=== PATIENT | female | born 1975 | race Caucasian/White ===

== ENCOUNTER 2019-04-07 18:31 | Emergency (ER) | payer MEDICAID, SELFPAY ==
[2019-04-07 19:04] VITALS: BP 167/90; PULSE 88; RESP 18; TEMP 36.8; O2SAT 96; BMI 38.9
[2019-04-07 19:45] LABS: Influenza A by IFA Negative (Negative); Influenza B by IFA Negative (Negative)
--- NOTE | 2019-04-07 20:29 | W.ED.FEVER ---
HPI - Fever General: Chief Complaint: Fever Stated Complaint: flu like symptoms Time Seen by Provider: 04/07/19 20:07 Source: patient Mode of arrival: ambulatory Limitations: no limitations History of Present Illness: HPI Narrative: Patient comes in today with fever, body aches, and bronchial discomfort. Patient appears well. Patient appears in mild pain or distress. Patient reports that her child was diagnosed with influenza type B and she has been using Tamiflu prophylactically for the last week. Associated symptoms: Reports chills Review of Systems General: Reports: 10 or more systems reviewed and unremarkable except in HPI and below Const: Reports: chills ENMT: Reports: throat pain Resp: Reports: non-productive cough PFSH ED PFSH: Statuses (acute, chronic, etc) shown below reflect problem list status as previously entered and may not be historically accurate Social History Smoking and tobacco status: never smoked Physical Exam Const: COMMON NORMALS: no apparent distress and oriented x3 GENERAL APPEARANCE: cooperative HENMT: COMMON NORMALS: normocephalic, external ears normal, EAC's normal, TM's normal bilaterally and external nose normal HEAD & SCALP: normal to inspection and normocephalic FACE & SINUS: normal facial exam NOSE: external nose normal GENERAL EAR: hearing not grossly impaired EXTERNAL EAR: Yes external ears normal EXTERNAL AUDITORY CANAL: EAC's normal TYMPANIC MEMBRANE: TM's normal bilaterally MOUTH: oral and palatal mucosa normal THROAT: posterior oropharynx normal Eye: COMMON NORMALS: PERRL and EOMs intact bilaterally PUPIL: Yes PERRL Neck/C-Spine: COMMON NORMALS: full ROM and no lymphadenopathy Lymph: LYMPHATIC: no lymphedema noted Chest: COMMONS NORMALS: inspection of chest normal and palpation of chest normal Resp: COMMON NORMALS: normal respiratory effort AUSCULTATION: bronchial breath sounds Cardio: COMMON NORMALS: regular rate and regular rhythm RATE: regular rate RHYTHM: regular rhythm GI: COMMON NORMALS: normal to inspection, nondistended, normoactive bowel sounds and non-tender : COMMON NORMALS: Yes no CVA tenderness BLADDER/KIDNEY EXAM: Yes no CVA tenderness Back/Pelvis: COMMON NORMALS: no CVA tenderness and thoracic and lumbar spine normal to inspection Extremity: COMMON NORMALS: normal to inspection GENERAL: No edema Neuro: COMMON NORMALS: oriented x3, moves all extremities and no focal motor deficits Psych: COMMON NORMALS: mental status grossly normal and cooperative Skin: COMMON NORMALS: no rashes or lesions noted GENERAL SKIN EXAM: no rashes or lesions noted Course Vital Signs: Vital signs: Vital Signs Temperature 98.7 F 04/07/19 21:13 Pulse Rate 82 04/07/19 21:13 Respiratory Rate 16 04/07/19 21:13 Blood Pressure 137/82 04/07/19 21:13 Pulse Oximetry 98 04/07/19 21:13 MDM - Fever MDM Narrative: Medical decision making narrative: Patient comes in today with flulike symptoms. On exam her lungs are pretty well clear to auscultation except for some mild bronchial sounds. Skin was warm and dry color is pink. No acute distress was noted. Differential diagnosis include pneumonia, influenza, upper respiratory infection, viral syndrome. Flu test was negative. I discussed with patient that being her child was just tested positive with the flu that most likely this is flu as it is described as a flulike syndrome. Patient otherwise looks well. We will go ahead and retreat with Tamiflu except that treatment dose of 75 mg twice a day for 5 days. Patient was recommended to use Tylenol and ibuprofen for pain. Patient was given dexamethasone for her bronchial breath sounds. Patient reports understanding of care plan and need for follow-up. Lab Data: Labs: Lab Results 04/07/19 Range/Units 19:10 Influenza Type A A g Negative (Negative) POC Influenza B Ag Negative (Negative) Discharge Plan Discharge Patient Disposition: Home, Self-Care Clinical Impression: Influenza Condition: Stable Prescriptions: New Tamiflu 75 mg capsule 75 mg PO BID 5 Days Qty: 10 RF: 0 promethazine-DM 6.25-15 mg/5 mL syrup 5 ml PO Q6H PRN (Reason: cough and nausea) Qty: 120 RF: 0 Discharge Orders: Discharge Order (Routine); Ordered 04/07/19 Ordered By: Noble Boswell Referrals: Aracelis Martinez FNP [Primary Care Provider] - Discharge Diet: Usual diet Discharge Activity: Resume usual activity Patient Instructions: Influenza (ED) Activity Restrictions/Additional Instructions: Drink plenty of fluids Acetaminophen and ibuprofen for pain and fever Medications as directed Home and rest Follow-up with primary care in one week Return to ER for worsening shortness of breath Discharge Date/Time: 04/07/19 21:14 Coding Level of Care Code ED Communications Executive for Chg Fwd Exam Problem Focused
[2019-04-07] MEDS: dexamethasone 10 mg/mL INJ IM (20:35)
[2019-04-07] MEDS: ondansetron 4 MG Tablet PO (20:40)
[2019-04-07 20:54] VITALS: BP 139/82; PULSE 86; RESP 16; TEMP 37.1; O2SAT 99
[2019-04-07 21:13] VITALS: BP 137/82; PULSE 82; RESP 16; TEMP 37.1; O2SAT 98
== END 2019-04-07 21:14 | disposition home or self-care (01) ==
PROVIDERS: Emergency Provider Nurse Practitioner Family; Family Provider Nurse Practitioner; PCP Nurse Practitioner
DX: J11.1 Influenza due to unidentified influenza virus with other respiratory manifestations (principal)
CPT/HCPCS: 87804; 96372; 99281; 99283; J1100; Q0162

== ENCOUNTER 2019-04-13 10:10 | Emergency (ER) | payer MEDICAID, SELFPAY ==
[2019-04-13 10:16] VITALS: BP 190/104; PULSE 92; RESP 18; TEMP 36.8; O2SAT 100; BMI 38.9
--- NOTE | 2019-04-13 10:27 | XR_ITS ---
WS: [id number] PROCEDURE: XR chest 2V* [id number] CLINICAL INFORMATION: cp COMPARISON: 2018 FINDINGS: Cholecystectomy clips. Heart: Normal cardiac silhouette. Lungs: Lungs are clear. No consolidation or pleural fluid. Calcific granuloma right midlung. Bones: Normal visualized bony structures. XR/XR chest 2V* [id number] IMPRESSION: No acute chest findings.
[2019-04-13 10:45] LABS: Basophils % 0.4 %; Eosinophils # 0.2 10^3/uL (0.0-0.8); Eosinophils % 2.1 %; Hemoglobin 14.3 g/dL (11.5-15.3); Lymphocytes # 2.1 10^3/uL (0.8-4.8); Lymphocytes % 20.1 %; Mean Corpuscular HGB Conc 32.5 g/dL (30.0-36.0); Mean Corpuscular Hemoglobin 30.3 pg (28.0-34.0); Mean Corpuscular Volume 93.2 fL (81-99); Mean Platelet Volume 11.1 fL (7.4-10.4); Monocytes # 0.5 10^3/uL (0.2-0.9); Monocytes % 4.8 %; Neutrophils # 7.5 10^3/uL (1.8-7.7); Neutrophils % 72.2 %; Nucleated Red Blood Cells % 0 %; Platelet Count 284 10^3/cmm (130-400); Red Blood Count 4.72 10^6/uL (4.1-5.3); Red Cell Distribution Width 13.2 % (12.1-15.1); White Blood Count 10.4 10^3/uL (4.0-10.0)
[2019-04-13 11:07] LABS: Troponin(5th) Baseline 6 ng/mL (0-10)
[2019-04-13 11:08] LABS: Alanine Aminotransferase 14 U/L (0-33); Albumin Level 4.2 g/dL (3.5-5.2); Alkaline Phosphatase 87 IU/L (35-105); Aspartate Amino Transferase 16 U/L (0-32); Blood Urea Nitrogen 10 mg/dL (6-20); Carbon Dioxide 25 mmol/L (22-29); Chloride 100 mmol/L (98-107); Globulin 3.4 g/dL (1.3-4.6); Glomerular Filtration Rate 48.8 mL/min (90-130); Glucose 150 mg/dL (74-109); Sodium 138 mmol/L (136-145); Total Bilirubin 0.8 mg/dL (0.15-1.2); Total Protein 7.6 g/dL (6.6-8.7)
--- NOTE | 2019-04-13 12:22 | ECG_ITS ---
Measurements Intervals [place] Rate: 78 P: 34 HI: 191 QRS: -19 QRSD: 97 T: -6 QT: 362 QTc: 413 SINUS RHYTHM MODERATE VOLTAGE CRITERIA FOR LVH, CONSIDER NORMAL VARIANT [MEETS CRITERIA IN ON ONE OF: R(aVL), S(V1), R(V5), R(V5/V6)+S(V1)] No previous ECG available for comparison Electronically Signed On 04-13-2019 20:17:15 MERCERIZING RANGE CONTROLLER by Shayna Jenkins M.D. [email or web address]
[2019-04-13 13:07] LABS: Troponin 5 2HR 6.57 ng/mL (0-10); Troponin 5 2HR Delta 0.57 ABS# (0-10)
--- NOTE | 2019-04-13 15:33 | ED_ITS ---
Entered by Gogo Baker, acting as scribe for Gene Bone DO Apr 13, 2019 10:10 HPI - Chest Pain General: Chief Complaint: Chest Pain Stated Complaint: CP X 2DAYS Time Seen by Provider: 04/13/19 15:33 Source: patient Mode of arrival: ambulatory Limitations: no limitations History of Present Illness: HPI narrative: 43 yo female presents with chest pain. pt states this started yesterday, but has had pneumonia for the last month. pt states she is unable to lay on her Left side due to pain. pt denies any other symptoms. MD complaint: chest pain Onset (ago): hour(s) (yesterday) Timing of current episode: constant and still present Onset: during rest Pain location: left chest Pain radiation: left arm and left shoulder Severity: mild Quality: sharp Relieving factors: nothing Exacerbating factors: other (laying on her L side) Context: recent illness (pneumonia ) Associated symptoms: Reports no associated symptoms Treatment prior to arrival: none Review of Systems General: Reports: 10 or more systems reviewed and unremarkable except in HPI and below PFSH ED PFSH: Statuses (acute, chronic, etc) shown below reflect problem list status as previously entered and may not be historically accurate Medical History History of diabetes mellitus (Acute) Surgical History H/O laparoscopy (Acute) H/O: (Acute) History of tubal ligation (Acute) Social History Smoking and tobacco status: never smoked Physical Exam Const: COMMON NORMALS: no apparent distress, average body habitus, oriented x3, no limitations, healthy appearing, alert and well nourished HENMT: COMMON NORMALS: normocephalic, head/scalp atraumatic, hearing grossly normal bilaterally, external ears normal, EAC's normal, TM's normal bilaterally, external nose normal, nasal mucous membranes and turbinates normal, moist oral mucous membranes, oropharynx normal, dentition normal and gingiva normal HEAD & SCALP: normocephalic and atraumatic NOSE: external nose normal and nasal mucous membranes and turbinates normal EXTERNAL EAR: Yes external ears normal EXTERNAL AUDITORY CANAL: EAC's normal TYMPANIC MEMBRANE: TM's normal bilaterally Eye: COMMON NORMALS: PERRL, EOMs intact bilaterally, conjunctivae normal, no scleral icterus, no papilledema, normal visual ayala by confrontation and fundi normal bilaterally CONJUNCTIVA: Yes conjunctivae normal PUPIL: Yes PERRL DIRECT OPHTHALMOSCOPY: Yes no papilledema and Yes fundi normal bilaterally Neck/C-Spine: COMMON NORMALS: full ROM, no lymphadenopathy, supple, no meningeal signs, no JVD, thyroid normal and no carotid bruits THYROID: thyroid normal Resp: COMMON NORMALS: normal respiratory effort, no retractions, no use of accessory muscles, clear to auscultation bilaterally and percussion normal AUSCULTATION: clear to auscultation bilaterally PERCUSSION: percussion normal Cardio: COMMON NORMALS: no JVD, regular rate, regular rhythm, S1 normal heart sound, S2 normal heart sound, no gallops, no clicks, no murmurs, no rub and peripheral pulses 2+ throughout RATE: regular rate RHYTHM: regular rhythm HEART SOUNDS: S1 normal and S2 normal PERIPHERAL PULSES: pulses 2+ throughout GI: COMMON NORMALS: normal to inspection, nondistended, normoactive bowel sounds, soft to palpation, non-tender, no hepatosplenomegaly, no masses and no bruits PALPATION: Yes soft and Yes no hepatosplenomegaly : COMMON NORMALS: Yes no CVA tenderness and Yes external appearance normal BLADDER/KIDNEY EXAM: Yes no CVA tenderness Back/Pelvis: COMMON NORMALS: no CVA tenderness, thoracic and lumbar spine normal to inspection, no thoracic nor lumbar tenderness, thoraco-lumbar ROM normal and straight leg raise negative bilaterally Extremity: COMMON NORMALS: normal to inspection, full ROM, normal capillary refill, no joint enlargement, no clubbing, cyanosis or edema, no calf tenderness and no pedal edema Neuro: COMMON NORMALS: oriented x3 SENSORIUM/ORIENTATION: Yes alert MENINGEAL SIGNS: Yes no meningeal signs Skin: COMMON NORMALS: no rashes or lesions noted, no wounds, skin turgor normal, no jaundice, no petechiae and no mottling GENERAL SKIN EXAM: no rashes or lesions noted and turgor normal Course Vital Signs: Vital signs: Vital Signs Temperature 98.2 F 04/13/19 10:16 Pulse Rate 92 02/04/20 10:16 Respiratory Rate 18 04/13/19 10:16 Blood Pressure 190/104 04/13/19 10:16 Pulse Oximetry 100 04/13/19 10:16 MDM - Chest Pain Lab Data: Labs: Lab Results 04/13/19 04/13/19 04/13/19 Range/Units 10:37 10:37 10:37 WBC 10.4 H (4.0-10.0) 10^3/ uL RBC 4.72 (4.1-5.3) 10^6/u L Hgb 14.3 (11.5-15.3) g/dL Hct 44.0 (37.0-47.0) % MCV 93.2 (81-99) fL MCH 30.3 (28.0-34.0) pg MCHC 32.5 (30.0-36.0) g/dL RDW 13.2 (12.1-15.1) % Plt Count 284 (130-400) 10^3/c mm MPV 11.1 H (7.4-10.4) fL Neut % (Auto) 72.2 % Lymph % (Auto) 20.1 % [place] % (Auto) 4.8 % Eos % (Auto) 2.1 % Baso % (Auto) 0.4 % Neut # (Auto) 7.5 (1.8-7.7) 10^3/u L Lymph # (Auto) 2.1 (0.8-4.8) 10^3/u L [place] # (Auto) 0.5 (0.2-0.9) 10^3/u L Eos # (Auto) 0.2 (0.0-0.8) 10^3/u L Baso # (Auto) 0.0 (0.0-0.1) 10^3/u L Nucleated RBC % (a uto) 0 % Nucleated RBCs # 0.0 /100WBC Sodium 138 (136-145) mmol/L Potassium 4.0 (3.5-5.1) mmol/L Chloride 100 (98-107) mmol/L Carbon Dioxide 25 (22-29) mmol/L Anion Gap 17.0 (5-19) BUN 10 (6-20) mg/dL Creatinine 1.2 H (0.5-0.9) mg/dL GFR Calculation 48.8 L (90-130) mL/min Glucose 150 H (74-109) mg/dL Calcium 10.0 (8.5-10.5) mg/dL Total Bilirubin 0.8 (0.15-1.2) mg/dL AST 16 (0-32) U/L ALT 14 (0-33) U/L Alkaline Phosphata se 87 (35-105) IU/L Troponin T Baselin e 6 (0-10) ng/mL Troponin T 120 Min [place] (0-10) ng/mL Delta Troponin T (0-10) ABS# Total Protein 7.6 (6.6-8.7) g/dL Albumin 4.2 (3.5-5.2) g/dL Globulin 3.4 (1.3-4.6) g/dL 04/13/19 Range/Units 12:46 WBC (4.0-10.0) 10^3/ uL RBC (4.1-5.3) 10^6/u L Hgb (11.5-15.3) g/dL Hct (37.0-47.0) % MCV (81-99) fL MCH (28.0-34.0) pg MCHC (30.0-36.0) g/dL RDW (12.1-15.1) % Plt Count (130-400) 10^3/c mm MPV (7.4-10.4) fL Neut % (Auto) % Lymph % (Auto) % [place] % (Auto) % Eos % (Auto) % Baso % (Auto) % Neut # (Auto) (1.8-7.7) 10^3/u L Lymph # (Auto) (0.8-4.8) 10^3/u L [place] # (Auto) (0.2-0.9) 10^3/u L Eos # (Auto) (0.0-0.8) 10^3/u L Baso # (Auto) (0.0-0.1) 10^3/u L Nucleated RBC % (a uto) % Nucleated RBCs # /100WBC Sodium (136-145) mmol/L Potassium (3.5-5.1) mmol/L Chloride (98-107) mmol/L Carbon Dioxide (22-29) mmol/L Anion Gap (5-19) BUN (6-20) mg/dL Creatinine (0.5-0.9) mg/dL GFR Calculation (90-130) mL/min Glucose (74-109) mg/dL Calcium (8.5-10.5) mg/dL Total Bilirubin (0.15-1.2) mg/dL AST (0-32) U/L ALT (0-33) U/L Alkaline Phosphata se (35-105) IU/L Troponin T Baselin e (0-10) ng/mL Troponin T 120 Min [place] 6.57 (0-10) ng/mL Delta Troponin T 0.57 (0-10) ABS# Total Protein (6.6-8.7) g/dL Albumin (3.5-5.2) g/dL Globulin (1.3-4.6) g/dL Discharge Plan Discharge Clinical Impression: Stable angina Chest pain Qualifiers: Chest pain type: precordial pain Qualified Code(s): R07.2 - Precordial pain Condition: Stable Prescriptions: New clonidine HCl [Catapres] 0.1 mg tablet 0.1 mg PO DAILY PRN (Reason: hypertensive emergency) Qty: 20 RF: 0 lisinopril 10 mg tablet 10 mg PO DAILY Qty: 20 RF: 0 No Action promethazine-DM 6.25-15 mg/5 mL syrup 5 ml PO Q6H PRN (Reason: cough and nausea) Qty: 120 RF: 0 Discharge Orders: Discharge Order (Routine); Ordered 04/13/19 Ordered By: Gene Bone Referrals: Aracelis Martinze FNP [Primary Care Provider] - Coding Level of Care Code ED Executive Secretary for Chg Fwd Exam Problem Focused The documentation recorded by the Samuel zacarias Bridget Annette, accurately reflects the service I personally performed and the decisions made by Lizandro padilla Donald P, Apr 13, 2019 10:10
[2019-04-13 15:52] VITALS: BP 171/122; PULSE 83; O2SAT 93
== END 2019-04-13 15:52 | disposition home or self-care (01) ==
PROVIDERS: Emergency Provider Family Medicine; Family Provider Nurse Practitioner; PCP Nurse Practitioner
DX: I20.8 Other forms of angina pectoris (principal)
CPT/HCPCS: 36415; 71046; 80053; 84484; 85025; 93005; 99282; 99284

== ENCOUNTER 2019-05-11 18:05 | Emergency (ER) | payer MEDICAID, SELFPAY ==
[2019-05-11 18:08] VITALS: BP 164/94; PULSE 113; RESP 17; TEMP 37.7; O2SAT 93; BMI 41.6
[2019-05-11 20:01] LABS: Influenza A by IFA Positive (Negative); Influenza B by IFA Negative (Negative)
--- NOTE | 2019-05-11 20:33 | ED_ITS ---
Entered by Kenzie Lang, acting as scribe for Boaz Funes MD May 11, 2019 18:05 HPI - Fever General: Chief Complaint: Fever Stated Complaint: fever Time Seen by Provider: 05/11/19 20:32 Source: patient Mode of arrival: ambulatory History of Present Illness: HPI Narrative: 43 y/o female presents to the ED with complaint of fever and body aches. Pt states her daughter was recently dx with Flu A. Pt has had sore throat, cough and weakness. MD elicited complaint: fever Onset (ago): day(s) Context: sick contacts Relieving factors: nothing Associated symptoms: Reports chills and sore throat; Deny abdominal pain, chest pain, diarrhea, dysuria, headache(s), nausea or vomiting Review of Systems Const: Reports: fever, chills, body aches and fatigue; Denies: change in appetite Eyes: Denies: blurry vision or eye discomfort ENMT: Reports: throat pain; Denies: dental pain Card: Denies: chest pain Resp: Reports: non-productive cough; Denies: shortness of breath GI: Denies: abdominal pain, nausea, vomiting or diarrhea : Denies: painful urination Musc: Denies: neck pain or back pain Skin/Breast: Denies: rash Neuro: Denies: headache Psych: Denies: depression Lazaro/Lymph: Denies: easy bruising All/Imm: Denies: hives PFSH ED PFSH: Family History (Updated 05/06/19 @ 15:38 by Ioana Mancuso MD) Mother CAD (coronary artery disease) Heart attack Grandmother CAD (coronary artery disease) Maternal grandmother Other Cancer Dementia Diabetes Hypertension Stroke Social History Smoking and tobacco status: current every day smoker Alcohol intake: never Physical Exam Const: COMMON NORMALS: no apparent distress and oriented x3 NUTRITIONAL APPEARANCE: obese HENMT: COMMON NORMALS: normocephalic and head/scalp atraumatic HEAD & SCALP: normocephalic and atraumatic Eye: COMMON NORMALS: PERRL and EOMs intact bilaterally PUPIL: Yes PERRL Neck/C-Spine: COMMON NORMALS: full ROM and supple Chest: COMMONS NORMALS: inspection of chest normal and palpation of chest normal Resp: COMMON NORMALS: normal respiratory effort, no retractions, no use of accessory muscles and clear to auscultation bilaterally AUSCULTATION: clear to auscultation bilaterally Cardio: COMMON NORMALS: regular rate, regular rhythm and no murmurs RATE: regular rate RHYTHM: regular rhythm GI: COMMON NORMALS: normal to inspection, nondistended, normoactive bowel sounds, soft to palpation, non-tender and no masses PALPATION: Yes soft Extremity: COMMON NORMALS: normal to inspection and full ROM Neuro: COMMON NORMALS: oriented x3, moves all extremities and no focal motor deficits Psych: COMMON NORMALS: mental status grossly normal, thought process normal and cooperative ATTITUDE: Yes calm THOUGHT PROCESS: normal thought process Skin: COMMON NORMALS: no rashes or lesions noted and no wounds GENERAL SKIN EXAM: no rashes or lesions noted Course Vital Signs: Vital signs: Vital Signs Temperature 99.9 F H 05/11/19 18:08 Pulse Rate 113 H 05/11/19 18:08 Respiratory Rate 17 05/11/19 18:08 Blood Pressure 164/94 05/11/19 18:08 Pulse Oximetry 93 05/11/19 18:08 MDM - Fever MDM Narrative: Medical decision making narrative: Patient presents with cough fever and body aches. Patient did test positive for flu likely causing symptoms. Exam here is benign and patient has no signs of pneumonia. We will start her on Tamiflu and she is stable for discharge. Lab Data: Labs: Lab Results 05/11/19 Range/Units 19:20 Influenza Type A A g Positive H (Negative) POC Influenza B Ag Negative (Negative) Discharge Plan Discharge Patient Disposition: Home, Self-Care Clinical Impression: Influenza Condition: Stable Prescriptions: New Tamiflu 75 mg capsule 75 mg PO BID 5 Days Qty: 10 RF: 0 No Action clonidine HCl 0.1 mg tablet 0.1 mg PO DAILY PRNRF: 0 albuterol sulfate 90 mcg/actuation HFA aerosol inhaler 2 puff INHALATION Q6H PRNRF: 0 omeprazole 20 mg capsule,delayed release(DR/EC) 20 mg PO DAILY Qty: 30 RF: 2 amoxicillin-pot clavulanate [Augmentin] 875-125 mg tablet 1 tab PO BID 7 Days Qty: 14 RF: 0 amlodipine 2.5 mg tablet 2.5 mg PO DAILY Qty: 30 RF: 2 Discharge Orders: Discharge Order (Routine); Ordered 05/11/19 Ordered By: Boaz Funes Referrals: Aracelis Martinez FNP [Primary Care Provider] - Discharge Diet: Advance as tolerated Discharge Activity: Resume usual activity Patient Instructions: Influenza (ED) Coding Level of Care Code ED Belt Brander for Chg Fwd Exam Comprehensive The documentation recorded by the Rickey zacarias Ashley, accurately reflects the service I personally performed and the decisions made by Marin padilla Korby, MD May 11, 2019 18:05
[2019-05-11 20:55] VITALS: O2SAT 98
[2019-05-11 20:56] VITALS: BP 134/69; PULSE 86; RESP 18; O2SAT 99
== END 2019-05-11 20:56 | disposition home or self-care (01) ==
PROVIDERS: Emergency Provider Emergency Medicine; Family Provider Nurse Practitioner; PCP Nurse Practitioner
DX: J11.1 Influenza due to unidentified influenza virus with other respiratory manifestations (principal); F17.200 Nicotine dependence, unspecified, uncomplicated; E66.9 Obesity, unspecified; Z68.41 Body mass index [BMI] 40.0-44.9, adult
CPT/HCPCS: 87804; 99281; 99283

== ENCOUNTER 2019-05-19 14:06 | Emergency (ER) | payer MEDICAID, SELFPAY ==
[2019-05-19 14:24] VITALS: BP 168/91; PULSE 85; RESP 16; TEMP 37.1; O2SAT 95; BMI 41.1
--- NOTE | 2019-05-19 14:31 | PC.NURSE ---
Mask applied to pt during triage.
--- NOTE | 2019-05-19 14:33 | XR_ITS ---
WS: [id number] Portable AP upright chest, 05/19/2019 Clinical Data: cough Comparison: PA and lateral chest, 04/13/2019. Findings: No nodules, masses or effusions are seen. The heart is normal. The pulmonary vascularity is not increased. No pneumonia or pneumothorax is seen. The patient's clothing obscures minimal detail over the central portion of the chest. XR/XR chest 1V portable [id number] Impression: Negative chest.
--- NOTE | 2019-05-19 14:36 | W.ED.GENADLT ---
HPI - General Adult General: Chief complaint: Shortness of Breath/Dyspnea Stated complaint: cough Time Seen by Provider: 05/19/19 14:31 History of Present Illness: HPI narrative: Patient had flu couple weeks ago was placed on Tamiflu. Patient's flulike symptoms are improved on the Tamiflu but she has continued cough. patient gets short of breath with exertion. Says she also has a productive cough history of treated high blood pressure MD complaint: Cough Onset (ago): week(s) Severity: moderate Associated symptoms: Reports cough and dyspnea; Deny chest pain, fevers/chills, headache(s), nausea, rash or vomiting Review of Systems Const: Denies: fever, chills or body aches Eyes: Denies: change in vision or blurry vision ENMT: Denies: throat pain or nasal congestion Card: Denies: chest pain or shortness of breath on exertion Resp: Reports: shortness of breath and productive cough; Denies: non-productive cough GI: Denies: abdominal pain, nausea or vomiting Musc: Denies: extremity pain Skin/Breast: Denies: rash Neuro: Denies: headache Psych: Denies: anxiety or depression Lazaro/Lymph: Denies: easy bruising PFSH ED PFSH: Family History (Updated 05/06/19 @ 15:38 by Ioana Mancuso MD) Mother CAD (coronary artery disease) Heart attack Grandmother CAD (coronary artery disease) Maternal grandmother Other Cancer Dementia Diabetes Hypertension Stroke Social History Smoking and tobacco status: never smoked Alcohol intake: never Female Reproductive History: Date of last menstrual period: 05/11/19 Physical Exam Const: COMMON NORMALS: no apparent distress, average body habitus and oriented x3 HENMT: COMMON NORMALS: normocephalic HEAD & SCALP: normal to inspection and normocephalic FACE & SINUS: normal facial exam Eye: COMMON NORMALS: conjunctivae normal GENERAL EYE: normal appearance of both eyes CONJUNCTIVA: Yes conjunctivae normal Neck/C-Spine: COMMON NORMALS: no JVD Chest: COMMONS NORMALS: inspection of chest normal Resp: COMMON NORMALS: normal respiratory effort and clear to auscultation bilaterally AUSCULTATION: clear to auscultation bilaterally Cardio: COMMON NORMALS: no JVD, regular rate and regular rhythm RATE: regular rate RHYTHM: regular rhythm GI: COMMON NORMALS: normal to inspection, nondistended, normoactive bowel sounds Extremity: COMMON NORMALS: normal to inspection and full ROM Neuro: COMMON NORMALS: oriented x3 Course Vital Signs: Vital signs: Vital Signs Temperature 98.7 F 05/19/19 14:24 Pulse Rate 85 05/19/19 14:24 Respiratory Rate 16 05/19/19 14:24 Blood Pressure 168/91 05/19/19 14:24 Pulse Oximetry 95 05/19/19 14:24 Discharge Plan Discharge Prescriptions: No Action clonidine HCl 0.1 mg tablet 0.1 mg PO DAILY PRNRF: 0 albuterol sulfate 90 mcg/actuation HFA aerosol inhaler 2 puff INHALATION Q6H PRNRF: 0 omeprazole 20 mg capsule,delayed release(DR/EC) 20 mg PO DAILY Qty: 30 RF: 2 amlodipine 2.5 mg tablet 2.5 mg PO DAILY Qty: 30 RF: 2 Coding Level of Care Code ED Top Flavor Attendant for Chg Acosta
[2019-05-19 15:16] LABS: Basophils % 0.3 %; Eosinophils # 0.2 10^3/uL (0.0-0.8); Hematocrit 39.3 % (37.0-47.0); Hemoglobin 12.8 g/dL (11.5-15.3); Lymphocytes # 1.8 10^3/uL (0.8-4.8); Lymphocytes % 23.8 %; Mean Corpuscular HGB Conc 32.6 g/dL (30.0-36.0); Mean Corpuscular Hemoglobin 29.1 pg (28.0-34.0); Mean Corpuscular Volume 89.3 fL (81-99); Monocytes # 0.6 10^3/uL (0.2-0.9); Monocytes % 7.4 %; Neutrophils # 4.9 10^3/uL (1.8-7.7); Neutrophils % 65.4 %; Nucleated Red Blood Cells % 0 %; Platelet Count 275 10^3/cmm (130-400); White Blood Count 7.5 10^3/uL (4.0-10.0)
[2019-05-19 15:26] VITALS: BP 139/96; PULSE 74; RESP 18; O2SAT 96
== END 2019-05-19 15:26 | disposition home or self-care (01) ==
PROVIDERS: Emergency Provider Nurse Practitioner Family; Family Provider Nurse Practitioner; PCP Nurse Practitioner
DX: R06.02 Shortness of breath (principal); R05 Cough
CPT/HCPCS: 12345; 36415; 71045; 85025; 99281; 99283

== ENCOUNTER 2019-09-09 17:08 | Emergency (ER) | payer MEDICAID, SELFPAY ==
[2019-09-09 17:43] VITALS: BP 130/87; PULSE 98; RESP 16; TEMP 37.3; O2SAT 97; BMI 38.9
--- NOTE | 2019-09-09 17:49 | XR_ITS ---
WS: [id number] LEFT FOOT: 3 VIEW(S) TECHNIQUE: AP, oblique and lateral. HISTORY: pain COMPARISON: 10/15/2018 No acute fracture or dislocation. Normal tarsal/metatarsal alignment. Mild degenerative changes at the first metatarsophalangeal joint with small erosions and subchondral cystic changes. Small calcaneal spur. Small osteophytes in the midfoot and there is a small osteophyte from the anter ior talar dome seen on the lateral projection. XR/XR foot LT min 3V* [id number] IMPRESSION: 1. Mild hallux valgus. 2. Mild degenerative changes in the midfoot.
--- NOTE | 2019-09-09 17:49 | XR_ITS ---
WS: [id number] RIGHT SHOULDER: 2 VIEW(S) TECHNIQUE: Internal and external rotation. HISTORY: injury COMPARISON: None available. No fracture or dislocation or soft tissue abnormality. Mild AC joint narrowing and hypertrophic bone formation distal clavicle. Visualized RIGHT lung is clear with the exception of a benign granuloma. XR/XR shoulder RT min 2V* [id number] IMPRESSION: Mild AC joint arthritis.
--- NOTE | 2019-09-09 18:10 | ECG_ITS ---
[facility] Test Date: 2019-09-09 Pat Name: Aisha Cooper Department: Room: Gender: Female [employer]: : 1975 Requested By: Arianna Patel Order Number: [id number] Gonzalez MD: Pawel Almanzar M.D. Measurements Intervals [place] Rate: 95 P: 30 [place]: 191 QRS: -25 QRSD: 92 T: -4 QT: 345 QTc: 435 Interpretive Statements SINUS RHYTHM MODERATE VOLTAGE CRITERIA FOR LVH, CONSIDER NORMAL VARIANT [MEETS CRITERIA IN ONE OF: R(aVL), S(V1), R(V5), R(V5/V6)+S(V1)] POSSIBLE ANTERIOR MYOCARDIAL INFARCTION [30 ms Q WAVE IN V3/V4, OR R < 0.2 mV IN V4], PROBABLY OLD Compared to ECG 04/13/2019 12:37:29 Myocardial infarct finding now present Electronically Signed On 09-10-2019 7:25:33 CDT by Pawel Almanzar M.D. [id number] f
--- NOTE | 2019-09-09 18:10 | XR_ITS ---
WS: [id number] PORTABLE CHEST HISTORY: Chest pain COMPARISON: 05/19/2019 Benign granuloma RIGHT lung. No pneumonia. Normal vasculature. No pleural effusion or pneumothorax. Cardiac size: Normal. Mediastinum/Aorta: Normal mediastinum. No osseous abnormality seen. XR/XR chest 1V portable [id number] IMPRESSION: Unremarkable portable chest.
[2019-09-09 18:49] LABS: Basophils # 0.1 10^3/uL (0.0-0.1); Basophils % 0.5 %; Eosinophils # 0.2 10^3/uL (0.0-0.8); Eosinophils % 1.7 %; Hematocrit 42.4 % (37.0-47.0); Hemoglobin 13.8 g/dL (11.5-15.3); Lymphocytes # 1.9 10^3/uL (0.8-4.8); Lymphocytes % 15.6 %; Mean Corpuscular HGB Conc 32.5 g/dL (30.0-36.0); Mean Corpuscular Hemoglobin 30.6 pg (28.0-34.0); Mean Platelet Volume 11.2 fL (7.4-10.4); Monocytes # 0.8 10^3/uL (0.2-0.9); Monocytes % 6.8 %; Neutrophils # 9.1 10^3/uL (1.8-7.7); Neutrophils % 74.9 %; Nucleated Red Blood Cells % 0 %; Platelet Count 289 10^3/cmm (130-400); Red Blood Count 4.51 10^6/uL (4.1-5.3); Red Cell Distribution Width 13.3 % (12.1-15.1); White Blood Count 12.1 10^3/uL (4.0-10.0)
[2019-09-09 19:07] LABS: Alanine Aminotransferase 20 U/L (0-33); Albumin Level 4.6 g/dL (3.5-5.2); Alkaline Phosphatase 89 IU/L (35-105); Anion Gap 16.1 (5-19); Aspartate Amino Transferase 22 U/L (0-32); Blood Urea Nitrogen 11 mg/dL (6-20); Calcium 9.5 mg/dL (8.5-10.5); Carbon Dioxide 25 mmol/L (22-29); Chloride 102 mmol/L (98-107); Globulin 2.8 g/dL (1.3-4.6); Glomerular Filtration Rate 60.2 mL/min (90-130); Glucose 96 mg/dL (65-115); Lipase 27 U/L (13-60); Osmolality Calculated 284 mOsm/kg (285-295); Potassium 4.1 mmol/L (3.5-5.1); Sodium 139 mmol/L (136-145); Total Bilirubin 0.5 mg/dL (0.15-1.2); Total Protein 7.4 g/dL (6.6-8.7)
[2019-09-09 19:08] LABS: Troponin T (5th) Once 6 ng/L (0-10)
--- NOTE | 2019-09-09 22:43 | W.ED.CHESTPA ---
HPI - Chest Pain General: Chief Complaint: Chest Pain Stated Complaint: right shoulder pain/left foot pain Time Seen by Provider: 09/09/19 22:30 Source: patient Mode of arrival: ambulatory Limitations: no limitations History of Present Illness: HPI narrative: 43-year-old female states she is been having right shoulder pain over the last 2 to 3 days. States that it hurts to touch and hurts when she moves her arm. States it started to radiate to her right side of her chest as well. Chest pain is also worse with movement of her arm. She states she also stepped on a toy last night and rolled her left foot and has left foot pain. She is able to ambulate but states that it is painful. She denies any fevers. She denies any cough or shortness of breath. Associated symptoms: Deny abdominal pain, dyspnea, fever(s), nausea or vomiting Review of Systems Const: Denies: fever(s), chills, body aches or change in appetite Eyes: Denies: blurry vision or eye discomfort ENMT: Denies: throat pain or dental pain Card: Denies: chest pain Resp: Denies: dyspnea GI: Denies: abdominal pain, nausea, vomiting or diarrhea : Denies: dysuria Musc: Reports: joint pain; Denies: neck pain or back pain Skin/Breast: Denies: rash Neuro: Denies: headache(s) Psych: Denies: depression Lazaro/Lymph: Denies: easy bruising All/Imm: Denies: urticaria PFSH ED PFSH: Medical History (Updated 09/09/19 @ 22:41 by Boaz Funes MD) GERD (gastroesophageal reflux disease) Surgical History H/O: History of cholecystectomy History of tubal ligation Right knee meniscal tear Family History (Updated 05/06/19 @ 15:38 by Ioana Mancuso MD) Mother CAD (coronary artery disease) Heart attack Grandmother CAD (coronary artery disease) Maternal grandmother Other Cancer Dementia Diabetes Hypertension Stroke Social History Smoking and tobacco status: never smoked Alcohol intake: never Female Reproductive History: Date of last menstrual period: 08/24/19 Physical Exam Const: COMMON NORMALS: no acute distress, patient oriented x3 and healthy appearing HENMT: COMMON NORMALS: normocephalic and atraumatic HEAD & SCALP: normocephalic and atraumatic Eye: COMMON NORMALS: Equal, round and reactive pupils present and EOMs intact bilaterally PUPIL: Yes Equal, round and reactive pupils present Neck/C-Spine: COMMON NORMALS: full ROM and supple Chest: COMMONS NORMALS: normal inspection of the chest and normal palpation of entire chest wall Resp: COMMON NORMALS: normal respiratory effort, No retractions, No use of accessory muscles and clear to auscultation bilaterally AUSCULTATION: clear to auscultation bilaterally Cardio: COMMON NORMALS: regular rate, regular rhythm and No murmurs present (Cardio) RATE: regular rate RHYTHM: regular rhythm GI: COMMON NORMALS: Normal to inspection, nondistended, normoactive bowel sounds present, Soft to palpation, non-tender and no masses PALPATION: Yes Soft to palpation Extremity: COMMON NORMALS: normal to inspection NARRATIVE EXTREMITY EXAM: Tenderness over right chest and right shoulder. Moving her arm reproduces her pain. Patient has full range of motion although it is painful at her shoulder joint. Patient has tenderness over left lateral foot with slight swelling. No obvious deformities. Patient is able to bear weight. Neuro: COMMON NORMALS: patient oriented x3, moves all extremities and no focal motor deficits Psych: COMMON NORMALS: mental status grossly normal, Normal thought process present and cooperative THOUGHT PROCESS: Normal thought process present Skin: COMMON NORMALS: no rashes or lesions noted and no wounds GENERAL SKIN EXAM: no rashes or lesions noted Course Vital Signs: Vital signs: Vital Signs Temperature 99.1 F 09/09/19 17:43 Pulse Rate 98 09/09/19 17:43 Respiratory Rate 16 09/09/19 17:43 Blood Pressure 130/87 09/09/19 17:43 Pulse Oximetry 97 09/09/19 17:43 MDM - Chest Pain MDM Narrative: Medical decision making narrative: Patient presents here with left foot strain from stepping on an object and rolling her foot. She has no fracture and is able ambulate. We will place her in an Abdullahi wrap. Patient also has shoulder pain is likely muscular. We will place her in a sling and place her on Naprosyn and Robaxin. She is to follow-up with primary care doctor in 3 to 4 days return if worsening. Her troponin here is negative she has no signs of cardiac cause for her pain. Lab Data: Labs: Lab Results 09/09/19 09/09/19 09/09/19 Range/Units 18:32 18:32 18:32 WBC 12.1 H (4.0-10.0) 10^3/ uL RBC 4.51 (4.1-5.3) 10^6/u L Hgb 13.8 (11.5-15.3) g/dL Hct 42.4 (37.0-47.0) % MCV 94.0 (81-99) fL MCH 30.6 (28.0-34.0) pg MCHC 32.5 (30.0-36.0) g/dL RDW 13.3 (12.1-15.1) % Plt Count 289 (130-400) 10^3/c mm MPV 11.2 H (7.4-10.4) fL Neut % (Auto) 74.9 % Lymph % (Auto) 15.6 % [place] % (Auto) 6.8 % Eos % (Auto) 1.7 % Baso % (Auto) 0.5 % Neut # (Auto) 9.1 H (1.8-7.7) 10^3/u L Lymph # (Auto) 1.9 (0.8-4.8) 10^3/u L [place] # (Auto) 0.8 (0.2-0.9) 10^3/u L Eos # (Auto) 0.2 (0.0-0.8) 10^3/u L Baso # (Auto) 0.1 (0.0-0.1) 10^3/u L Nucleated RBC % (a uto) 0 % Nucleated RBCs # 0.0 /100WBC Sodium 139 (136-145) mmol/L Potassium 4.1 (3.5-5.1) mmol/L Chloride 102 (98-107) mmol/L Carbon Dioxide 25 (22-29) mmol/L Anion Gap 16.1 (5-19) BUN 11 (6-20) mg/dL Creatinine 1.0 H (0.5-0.9) mg/dL GFR Calculation 60.2 L (90-130) mL/min Glucose 96 (65-115) mg/dL Calculated Osmolal ity 284 L (285-295) mOsm/k g Calcium 9.5 (8.5-10.5) mg/dL Total Bilirubin 0.5 (0.15-1.2) mg/dL AST 22 (0-32) U/L ALT 20 (0-33) U/L Alkaline Phosphata se 89 (35-105) IU/L Troponin T Gen 5 n g/L 6 (0-10) ng/L Total Protein 7.4 (6.6-8.7) g/dL Albumin 4.6 (3.5-5.2) g/dL Globulin 2.8 (1.3-4.6) g/dL Lipase 27 (13-60) U/L Imaging Data^: xr L foot: Attestation: I personally reviewed and interpreted this imaging study as follows: My impression: no acute abnormality xr r shoulder: Attestation: I personally reviewed and interpreted this imaging study as follows: My impression: no acute abnormality Discharge Plan Discharge Patient Disposition: Home, Self-Care Clinical Impression: Right shoulder pain Qualifiers: Chronicity: acute Qualified Code(s): M25.511 - Pain in right shoulder Sprain of foot, left Qualifiers: Encounter type: initial encounter Qualified Code(s): S93.602A - Unspecified sprain of left foot, initial encounter Condition: Stable Prescriptions: New Robaxin-750 750 mg tablet 750 mg PO Q6H Qty: 30 RF: 0 Naprosyn 500 mg tablet 500 mg PO BID PRN (Reason: pain) Qty: 20 RF: 0 No Action clonidine HCl 0.1 mg tablet See Rx Instructions .ROUTE .COMPLEX PRN (Reason: HIGH BLOOD PRESSURE) RF: 0 albuterol sulfate 90 mcg/actuation HFA aerosol inhaler 2 puff INHALATION Q6H PRN (Reason: Shortness Of Breath) RF: 0 omeprazole 20 mg capsule,delayed release(DR/EC) 20 mg PO DAILY Qty: 30 RF: 2 amlodipine 2.5 mg tablet 2.5 mg PO DAILY Qty: 30 RF: 2 penicillin V potassium 500 mg tablet 500 mg PO Q8H Qty: 30 RF: 0 ibuprofen 200 mg Tablet 200 mg PO Q6H PRN (Reason: Pain) RF: 0 Medrol (Tashi) 4 mg tablets,dose pack See Rx Instructions .ROUTE .COMPLEX Qty: 21 RF: 0 albuterol sulfate 90 mcg/actuation HFA aerosol inhaler 2 inh INHALATION Q4H PRN (Reason: shortness of breath or wheezing) Qty: 18 RF: 0 Tessalon Perles 100 mg capsule 100 mg PO Q6H PRN (Reason: cough) Qty: 14 RF: 0 Discharge Orders: Discharge Order (Routine); Ordered 09/09/19 Ordered By: Boaz Funes Referrals: Aracelis Martinez FNP [Primary Care Provider] - Bhaskar Jordan MD [Physician] - 1-3 days Discharge Diet: Advance as tolerated Discharge Activity: Resume usual activity Coding Level of Care Code ED Placement Secretary for Deandre Shane
[2019-09-09] MEDS: HYDROcodone-acetaminophen 10-325 mg Tablet 1 TAB PO (22:57)
[2019-09-09 23:04] VITALS: BP 157/108; PULSE 87; RESP 18; O2SAT 97
--- NOTE | 2019-09-09 23:05 | PC.NURSE ---
Sling in and yuly wrap in place. Pt. instructed on use. Indicates understanding
--- NOTE | 2019-09-13 09:46 | DCPLANNER ---
manager mechanical had message to schedule a follow up appointment for patient with ortho. manager mechanical called the ortho clinic, spoke with Pat, gave clinic patients appointment information. manager mechanical was told that patients information would be printed and reviewed. Clinic will call patient with appointment information.
--- NOTE | 2019-09-14 08:59 | DCPLANNER ---
Patient has a follow up appointment scheduled for Saturday, September 21, 2019 at 3:[address] Jordan. Clinic will call patient with appointment information.
--- NOTE | 2019-09-22 15:15 | DCPLANNER ---
Patient did attend appointment scheduled for 09.21.19 with ortho.
== END 2019-09-09 23:11 | disposition home or self-care (01) ==
PROVIDERS: Emergency Medicine; Emergency Provider Emergency Medicine; PCP Nurse Practitioner
DX: M25.511 Pain in right shoulder (principal); S93.602A Unspecified sprain of left foot, initial encounter; X50.1XXA Overexertion from prolonged static or awkward postures, initial encounter
CPT/HCPCS: 12345; 36415; 71045; 73030; 73630; 80053; 83690; 84484; 85025; 93005; 99281; 99284

== ENCOUNTER 2019-09-22 11:29 | Outpatient (CLI) | payer MEDICAID, SELFPAY ==
[2019-09-22 12:05] VITALS: BMI 38.9
--- NOTE | 2019-09-22 12:15 | ECG_ITS ---
[facility] Test Date: 2019-09-22 Pat Name: Aisha Cooper Department: Room: Gender: Female [employer]: : 1975 Requested By: Ioana Mancuso Order Number: [id number] Gonzalez MD: Ioana Mancuso M.D. Interpretive Statements NAME OF STUDY: TREADMILL STRESS ECHOCARDIOGRAM INDICATION: Chest Pain PROCEDURE: At the baseline, the patient's blood pressure was 143/91 mmHg, oxygen saturation 96% with a heart rate of 81 bpm. The baseline electrocardiogram showed normal sinus rhythm poor anterior R wave progression and nonspecific T wave changes. The patient exercised for 4 minutes 39 seconds on a standard Errol protocol. Patient attained a maximum heart rate of 164 beats per minute(93 % of the maximum predicted heart rate) with a blood pressure at the peak exercise of 210/107 mm Hg and oxygen saturation 91%. The EKG at the peak exercise revealed sinus tachycardia with no significant ST-T wave changes. Artifact noted. Patient did not have any chest pain or any significant EKG changes with the exercise. PVC couplets noted during stage I of exercise. During the recovery phase, there were no new changes. Blood pressure at the end of the recovery phase was 145/84 mm Hg with a heart rate of 102 beats per minute and oxygen saturation 97%. Echocardiographic pictures were taken at the baseline, immediately following the peak exercise and during the recovery phase. CONCLUSION: 1. Normal EKG response to treadmill exercise. 2. No exercise-induced chest pain or cardiac arrhythmia. 3. Decreased exercise tolerance, attained a maximum of 7 METs. Maximum VO2 of 24.5 mL/kg/min. 4. Please see separate report for the echocardiographic response to exercise. Electronically Signed On 09-24-2019 13:28:35 CDT by Ioana Mancuso M.D. [id number]
--- NOTE | 2019-09-22 12:15 | USCV_ITS ---
Stress Echo Aisha Cooper Age: 43 Gender: F : 1975 Exam Date: 09/22/2019 12:04 Ordering Phys: Ioana Mancuso MD ([email or web address]) Technologist: Frank Peoples Exam Location: [facility] [place] Indication: Chest Pain Rhythm: Sinus Patient History: Chest pain, Hypertension Cardiac Medications: Dihydropyridine calcium channel monik Medications in past 24 hours: NONE Contrast: Stress Results Protocol: Errol Total dose(mL): Exercise Duration (min:sec): 04:39 METS: 7.0 Resting HR: 81 Resting BP: 143 / 91 Peak HR: 164 Peak BP: 210 / 107 Max Predicted HR: 176 93 % Max Predicted HR Target HR: 150 Double Product: 27621 Stress Summary: The patient's target heart rate was achieved The patient exhibited a hypertensive response with stress Oxygen desaturation noted at peak exercise accompanied by shortness of breath. BP Response: Abnormal increase in BP during/after stress Reason for Termination: Test terminated after reaching target heart rate (85% max predicted) Cardiac Symptoms: Short of Breath ECG Analysis Resting ECG: Stress ECG: Arrhythmia: MEASUREMENTS (Male/Female) Normal Values FINDINGS Baseline echocardiogram: Normal left ventricular size and systolic function with ejection fraction estimated at 60%. Normal mitral and aortic valve. Normal right ventricular size and systolic function. Peak exercise echocardiogram: Augmentation of baseline left ventricular systolic function at peak exercise. No new regional wall motion abnormality with stress. Recovery echocardiogram: Left ventricular systolic function returned back to near normal. No new regional wall motion abnormality noted. CONCLUSIONS 1. This is a exercise stress echocardiogram. 2. Patient exercised for 4 minutes 39 seconds and reached 7 METS. Double product of 34,441. 3. Normal EKG response to treadmill exercise. Refer to EKG portion of the study for details. 4. Normal resting echocardiogram. There were no stress-induced wall motion abnormalities. Ioana Mancuso MD (Electronically Signed) Final Date: 24 September 2019 13:37 S
[2019-09-22 12:46] VITALS: BP 145/82; PULSE 99
== END 2019-09-22 11:30 | disposition home or self-care (01) ==
PROVIDERS: PCP Nurse Practitioner; Visit Provider Internal Medicine Cardiovascular Disease
DX: R07.9 Chest pain, unspecified (principal)
CPT/HCPCS: 93017; 93350; 93352

== ENCOUNTER → 2020-03-09 11:48 | Outpatient (BNVA) | payer MEDICAID, SELFPAY | PROVIDERS: Family Provider Nurse Practitioner; PCP Nurse Practitioner; Visit Provider Nurse Practitioner | DX: Z20.828 Contact with and (suspected) exposure to other viral communicable diseases (principal); J20.9 Acute bronchitis, unspecified | CPT/HCPCS: 87635 ==

== ENCOUNTER 2020-05-22 16:52 | Emergency (ER) | payer MEDICAID, SELFPAY ==
[2020-05-22 17:04] VITALS: BP 151/94; PULSE 92; RESP 16; TEMP 37.1; O2SAT 98; BMI 38.9
--- NOTE | 2020-05-22 20:59 | ED_ITS ---
HPI - Weakness General: Chief complaint: Weakness Stated complaint: WEAKNESS Time Seen by Provider: 05/22/20 20:55 History of Present Illness: HPI Narrative: Patient is a 44-year-old female comes to the ED with weakness and dizziness. Patient has past medical history of asthma, hypertension. Symptoms started about a week ago and have continued to progress. She says the weakness is generalized and throughout her whole body. The dizziness she describes as a spinning sensation and it occurs occasionally when patient stands up or is ambulating. Denies any chest pain, shortness of breath or syncope. Denies any fever, chills, shortness of breath, abdominal pain, upper respiratory symptoms, bladder or bowel symptoms. Patient also has some chronic right shoulder pain that she is currently seeing orthopedic doctor for. Associated symptoms: Denies chest pain, chills, dysuria, fever(s), headache(s), nausea or vomiting Review of Systems Const: Reports: fatigue (generalized weakness); Denies: fever(s) or chills Eyes: Denies: change in vision or eye discomfort ENMT: Denies: throat pain, odynophagia, nasal discharge or nasal congestion Card: Denies: chest pain, palpitations, edema, swelling of feet/ankles, dyspnea on exertion or orthopnea Resp: Denies: dyspnea, productive cough or non-productive cough GI: Denies: abdominal pain, nausea, vomiting, diarrhea, constipation or hematochezia : Reports: pelvic pain (Pain over bladder area.); Denies: flank pain, dysuria or hematuria Musc: Reports: extremity pain (chronic right shoulder pain); Denies: neck pain, back pain or extremity swelling Skin/Breast: Denies: rash or new lesions Neuro: Reports: dizziness; Denies: headache(s), numbness in extremities or weakness in extremities [facility] ED PFSH: Medical History GERD (gastroesophageal reflux disease) Surgical History H/O: History of cholecystectomy History of tubal ligation Right knee meniscal tear Family History Mother CAD (coronary artery disease) Heart attack Grandmother CAD (coronary artery disease) Maternal grandmother Other Cancer Dementia Diabetes Hypertension Stroke Social History Smoking and tobacco status: never smoked Alcohol intake: never Female Reproductive History: Date of last menstrual period: 08/24/19 Physical Exam Const: COMMON NORMALS: no acute distress, patient oriented x3, healthy appearing and alert GENERAL APPEARANCE: cooperative and comfortable NUTRITIONAL APPEARANCE: overweight HENMT: COMMON NORMALS: normocephalic HEAD & SCALP: normocephalic MOUTH: Normal oral and palatal mucosa present THROAT: posterior oropharynx normal a nd uvula midline Neck/C-Spine: COMMON NORMALS: supple GENERAL: Yes normal visual inspection Resp: COMMON NORMALS: normal respiratory effort, No retractions, No use of accessory muscles and clear to auscultation bilaterally AUSCULTATION: clear to auscultation bilaterally Cardio: COMMON NORMALS: regular rate, regular rhythm, S1 normal heart sound present, S2 normal heart sound present, No gallops present (Cardio), No clicks present (Cardio), No murmurs present (Cardio) and Peripheral pulses 2+ throughout RATE: regular rate RHYTHM: regular rhythm HEART SOUNDS: S1 normal heart sound present and S2 normal heart sound present PERIPHERAL PULSES: Peripheral pulses 2+ throughout GI: COMMON NORMALS: Normal to inspection, nondistended, normoactive bowel sounds present, Soft to palpation, non-tender and no masses PALPATION: Yes Soft to palpation and Yes Bladder palpation abnormal : COMMON NORMALS: Yes no CVA tenderness BLADDER/KIDNEY EXAM: Yes no CVA tenderness and Yes Bladder palpation abnormal Bladder abnormal details: tender Back/Pelvis: COMMON NORMALS: no CVA tenderness Extremity: COMMON NORMALS: normal to inspection and no pedal edema Neuro: COMMON NORMALS: patient oriented x3, CN's II-XII intact bilaterally, moves all extremities, no focal motor deficits and no sensory deficits noted SENSORIUM/ORIENTATION: Yes alert SENSORY EXAM: Yes extremities (intact) MOTOR EXAM: 5/5 motor strength present throughout Skin: GENERAL SKIN EXAM: dry skin Course Vital Signs: Vital signs: Vital Signs Temperature 98.7 F 05/22/20 17:04 Pulse Rate 86 05/22/20 21:33 Respiratory Rate 16 05/22/20 21:33 Blood Pressure 139/89 05/22/20 21:33 Pulse Oximetry 96 05/22/20 21:33 MDM - Weakness MDM Narrative: Medical decision making narrative: Patient is a 44-year-old female comes to the ED with generalized weakness and dizziness. Symptoms started approximately 1 week ago. Exam findings significant for some tenderness to palpation over bladder. No CVA tenderness noted. Neuro exam normal. White blood cell count 10.3 but the rest of CBC and CMP were unremarkable. UA showed signs of UTI. CT of head showed no acute findings. EKG showed no acute findings and troponin negative. Patient given 1 L of IV fluids and Toradol while here in the ED to help with symptoms. Patient diagnosed with a UTI and discharged home with a prescription for cefdinir. Return to ED precautions given. Follow-up with PCP for reevaluation in 7 to 10 days. Patient understood and agreed with plan. Lab Data: Attestation: I reviewed the patient's lab results. Labs: Lab Results 05/22/20 05/22/20 05/22/20 Range/Units 21:10 21:10 21:10 WBC 10.3 H (4.0-10.0) 10^3/ uL RBC 4.82 (4.1-5.3) 10^6/u L Hgb 14.5 (11.5-15.3) g/dL Hct 44.4 (37.0-47.0) % MCV 92.1 (81-99) fL MCH 30.1 (28.0-34.0) pg MCHC 32.7 (30.0-36.0) g/dL RDW 13.3 (12.1-15.1) % Plt Count 293 (130-400) 10^3/c mm MPV 11.1 H (7.4-10.4) fL Neut % (Auto) 67.8 % Lymph % (Auto) 23.5 % Glascock % (Auto) 6.1 % Eos % (Auto) 1.6 % Baso % (Auto) 0.6 % Neut # (Auto) 6.97 (1.8-7.7) 10^3/u L Lymph # (Auto) 2.4 (0.8-4.8) 10^3/u L Glascock # (Auto) 0.6 (0.2-0.9) 10^3/u L Eos # (Auto) 0.2 (0.0-0.8) 10^3/u L Baso # (Auto) 0.1 (0.0-0.1) 10^3/u L Nucleated RBC % (a uto) 0 % Nucleated RBCs # 0.0 /100WBC Sodium 137 (136-145) mmol/L Potassium 4.7 (3.5-5.1) mmol/L Chloride 100 (98-107) mmol/L Carbon Dioxide 24 (22-29) mmol/L Anion Gap 17.7 (5-19) BUN 12 (6-20) mg/dL Creatinine 0.9 (0.5-0.9) mg/dL GFR Calculation 67.7 L (90-130) mL/min Glucose 92 (65-115) mg/dL Calculated Osmolal ity 283 L (285-295) mOsm/k g Calcium 9.4 (8.5-10.5) mg/dL Total Bilirubin 0.4 (0.15-1.2) mg/dL AST 15 (0-32) U/L ALT 12 (0-33) U/L Alkaline Phosphata se 95 (35-105) IU/L Troponin T Baselin e (0-10) ng/L Total Protein 7.2 (6.6-8.7) g/dL Albumin 4.3 (3.5-5.2) g/dL Globulin 2.9 (1.3-4.6) g/dL HCG, Qual Negative (Negative) Urine Color (Yellow) Urine Appearance (CLEAR) Urine pH (5-7) Ur Specific Gravit y (1.005-1.030) Urine Protein (Negative) Urine Glucose (UA) (Normal) Urine Ketones (Negative) Urine Blood (Negative) Urine Nitrate (Negative) Urine Bilirubin (Negative) Urine Urobilinogen (Negative) mg/dL Ur Leukocyte Irene ase (Negative) Urine RBC (0-2) /hpf Urine WBC (0-5) /hpf Ur Squamous Epith Cells (0-5) /hpf Amorphous Sediment Urine Bacteria (NONE) /hpf Urine Mucus /hpf 05/22/20 05/22/20 Range/Units 21:10 21:18 WBC (4.0-10.0) 10^3/ uL RBC (4.1-5.3) 10^6/u L Hgb (11.5-15.3) g/dL Hct (37.0-47.0) % MCV (81-99) fL MCH (28.0-34.0) pg MCHC (30.0-36.0) g/dL RDW (12.1-15.1) % Plt Count (130-400) 10^3/c mm MPV (7.4-10.4) fL Neut % (Auto) % Lymph % (Auto) % Glascock % (Auto) % Eos % (Auto) % Baso % (Auto) % Neut # (Auto) (1.8-7.7) 10^3/u L Lymph # (Auto) (0.8-4.8) 10^3/u L Glascock # (Auto) (0.2-0.9) 10^3/u L Eos # (Auto) (0.0-0.8) 10^3/u L Baso # (Auto) (0.0-0.1) 10^3/u L Nucleated RBC % (a uto) % Nucleated RBCs # /100WBC Sodium (136-145) mmol/L Potassium (3.5-5.1) mmol/L Chloride (98-107) mmol/L Carbon Dioxide (22-29) mmol/L Anion Gap (5-19) BUN (6-20) mg/dL Creatinine (0.5-0.9) mg/dL GFR Calculation (90-130) mL/min Glucose (65-115) mg/dL Calculated Osmolal ity (285-295) mOsm/k g Calcium (8.5-10.5) mg/dL Total Bilirubin (0.15-1.2) mg/dL AST (0-32) U/L ALT (0-33) U/L Alkaline Phosphata se (35-105) IU/L Troponin T Baselin e 8 (0-10) ng/L Total Protein (6.6-8.7) g/dL Albumin (3.5-5.2) g/dL Globulin (1.3-4.6) g/dL HCG, Qual (Negative) Urine Color Yellow (Yellow) Urine Appearance Clear (CLEAR) Urine pH 5 (5-7) Ur Specific Gravit y 1.015 (1.005-1.030) Urine Protein Neg (Negative) Urine Glucose (UA) Norm (Normal) Urine Ketones Negative (Negative) Urine Blood 2+ H (Negative) Urine Nitrate Negative (Negative) Urine Bilirubin Neg (Negative) Urine Urobilinogen Norm (Negative) mg/dL Ur Leukocyte Irene ase 2+ H (Negative) Urine RBC 15-25 H (0-2) /hpf Urine WBC 15-25 H (0-5) /hpf Ur Squamous Epith Cells 5-10 H (0-5) /hpf Amorphous Sediment Not Reportable Urine Bacteria 2+ H (NONE) /hpf Urine Mucus 2+ /hpf Imaging Data^: CT Head: Attestation: I personally reviewed and interpreted this imaging study as follows: Radiologist's impression: [facility] [facility] [address] [address] [address] Scan Report Signed Patient: Aisha Cooper Unit #: [id number] : 1975 Age/Sex: 44 / F ADM Date: 05/22/20 Loc: ER Room/Bed: Attending Dr: Ordering Provider/Ordering MD: Isak Townsend Date of Service: 05/22/20 Procedure(s): CT head wo con* [id number] Accession Number(s): [id number] Report Number: [id number] PROCEDURE INFORMATION: Exam: CT Head Without Contrast Exam date and time: 05/22/2020 9:21 PM Age: 44 years old Clinical indication: Pain; Headache; Patient HX: CARDONA, dizzy, blurred vision x 1 week; Additional info: Dizziness and weakness TECHNIQUE: Imaging protocol: Computed tomography of the head without contrast. Radiation optimization: All CT scans at this facility use at least one of these dose optimization techniques: automated exposure control; mA and/or kV adjustment per patient size (includes targeted exams where dose is matched to clinical indication); or iterative reconstruction. COMPARISON: CT head wo con* [id number] 11/24/2018 4:46 PM RADIATION DOSE METRICS: Total DLP (mGy-cm): 875.84 FINDINGS: Brain: Normal. No hemorrhage. Unremarkable white matter. No mass effect. Cerebral ventricles: No ventriculomegaly. Bones/joints: Unremarkable. No acute fracture. Paranasal sinuses: Visualized sinuses are unremarkable. No fluid levels. Mastoid air cells: Visualized mastoid air cells are well aerated. Soft tissues: Unremarkable. CT/CT head wo con* [id number] IMPRESSION: No acute intracranial abnormality. Radiation Dose CTDIVOL = (mGy): DLP = 875.84 (mGy-cm) Dictated By: Pawel Tee Signed By: Pawel Tee Signed Date/Time: 05/22/202138 DD/ 37 EKG Data^: EKG 1: Attestation: I personally reviewed and interpreted this EKG as follows: EKG interpretation date: 05/22/20 Interpretation: Sinus rhythm, 85 bpm, no ST segment elevation or depression seen. Discharge Plan Discharge Patient Disposition: Home Clinical Impression: UTI (urinary tract infection) Qualifiers: Urinary tract infection type: acute cystitis Hematuria presence: with hematuria Qualified Code(s): N30.01 - Acute cystitis with hematuria Condition: Stable Prescriptions: New cefdinir 300 mg capsule 300 mg PO BID 10 Days Qty: 20 RF: 0 No Action clonidine HCl 0.1 mg tablet See Rx Instructions .ROUTE .COMPLEX PRN (Reason: HIGH BLOOD PRESSURE) RF: 0 albuterol sulfate 90 mcg/actuation HFA aerosol inhaler 2 puff INHALATION Q6H PRN (Reason: Shortness Of Breath) RF: 0 azithromycin 250 mg tablet See Rx Instructions PO .COMPLEX Qty: 6 RF: 0 prednisone 20 mg tablet 40 mg PO DAILY 5 Days Qty: 10 RF: 0 albuterol sulfate [Ventolin HFA] 90 mcg/actuation HFA aerosol inhaler 2 puff inhalation Q6H PRN (Reason: shortness of breath or wheezing) Qty: 6.7 RF: 0 amlodipine 2.5 mg tablet 2.5 mg PO DAILY Qty: 30 RF: 2 Naprosyn 500 mg tablet 500 mg PO BID PRN (Reason: pain) Qty: 20 RF: 0 ibuprofen 200 mg Tablet 200 mg PO Q6H PRN (Reason: Pain) RF: 0 Discharge Orders: Discharge ED (Routine); Ordered 05/22/20 Ordered By: Isak Townsend Discharge Diet: Regular Discharge Activity: Increase activity as tolerated Patient Instructions: Urinary Tract Infection in Women (ED) Activity Restrictions/Additional Instructions: Follow-up with medical provider as directed. Case management should be contacting you in the next several days to set up an appointment with a primary care physician. Drink plenty of fluids and stay hydrated. Take medications as prescribed. Return to the ER or your medical provider if condition worsens. Please read and understand discharge instructions. If any questions, please ask. Coding Level of Care Code ED Direct Customer Service Representative for Chg Fwd Exam Comprehensive
--- NOTE | 2020-05-22 21:14 | CTR_ITS ---
PROCEDURE INFORMATION: Exam: CT Head Without Contrast Exam date and time: 05/22/2020 9:21 PM Age: 44 years old Clinical indication: Pain; Headache; Patient HX: CARDONA, dizzy, blurred vision x 1 week; Additional info: Dizziness and weakness TECHNIQUE: Imaging protocol: Computed tomography of the head without contrast. Radiation optimization: All CT scans at this facility use at least one of these dose optimization techniques: automated exposure control; mA and/or kV adjustment per patient size (includes targeted exams where dose is matched to clinical indication); or iterative reconstruction. COMPARISON: CT head wo con* [id number] 11/24/2018 4:46 PM RADIATION DOSE METRICS: Total DLP (mGy-cm): 875.84 FINDINGS: Brain: Normal. No hemorrhage. Unremarkable white matter. No mass effect. Cerebral ventricles: No ventriculomegaly. Bones/joints: Unremarkable. No acute fracture. Paranasal sinuses: Visualized sinuses are unremarkable. No fluid levels. Mastoid air cells: Visualized mastoid air cells are well aerated. Soft tissues: Unremarkable. CT/CT head wo con* [id number] IMPRESSION: No acute intracranial abnormality. Radiation Dose CTDIVOL = (mGy): DLP = 875.84 (mGy-cm)
[2020-05-22 21:20] LABS: Basophils # 0.1 10^3/uL (0.0-0.1); Basophils % 0.6 %; Eosinophils # 0.2 10^3/uL (0.0-0.8); Eosinophils % 1.6 %; Hematocrit 44.4 % (37.0-47.0); Hemoglobin 14.5 g/dL (11.5-15.3); Lymphocytes # 2.4 10^3/uL (0.8-4.8); Lymphocytes % 23.5 %; Mean Corpuscular HGB Conc 32.7 g/dL (30.0-36.0); Mean Corpuscular Hemoglobin 30.1 pg (28.0-34.0); Mean Corpuscular Volume 92.1 fL (81-99); Mean Platelet Volume 11.1 fL (7.4-10.4); Monocytes # 0.6 10^3/uL (0.2-0.9); Monocytes % 6.1 %; Neutrophils # 6.97 10^3/uL (1.8-7.7); Neutrophils % 67.8 %; Nucleated Red Blood Cells % 0 %; Platelet Count 293 10^3/cmm (130-400); Red Blood Count 4.82 10^6/uL (4.1-5.3); Red Cell Distribution Width 13.3 % (12.1-15.1); White Blood Count 10.3 10^3/uL (4.0-10.0)
[2020-05-22 21:33] VITALS: BP 139/89; PULSE 86; RESP 16; O2SAT 96
[2020-05-22 21:38] LABS: HCG, Serum Qual Negative (Negative)
[2020-05-22 21:43] LABS: Blood Urine 2+ (Negative); Glucose Urine UA Norm (Normal); Ketones Urine Negative (Negative); Leukocyte Esterase Urine 2+ (Negative); Protein Urine Neg (Negative); Specific Gravity, Urine 1.015 (1.005-1.030); Urine Appearance Clear (CLEAR); Urine Color Yellow (Yellow); pH Urine 5 (5-7)
[2020-05-22 21:44] LABS: Bacteria Urine 2+ /hpf; RBC Urine 15-25 /hpf (0-2); WBC Urine 15-25 /hpf (0-5)
[2020-05-22 21:45] LABS: Add Urine Culture? Yes; Mucus Urine 2+ /hpf
[2020-05-22 21:46] LABS: Alanine Aminotransferase 12 U/L (0-33); Albumin Level 4.3 g/dL (3.5-5.2); Alkaline Phosphatase 95 IU/L (35-105); Blood Urea Nitrogen 12 mg/dL (6-20); Calcium 9.4 mg/dL (8.5-10.5); Carbon Dioxide 24 mmol/L (22-29); Chloride 100 mmol/L (98-107); Globulin 2.9 g/dL (1.3-4.6); Glomerular Filtration Rate 67.7 mL/min (90-130); Glucose 92 mg/dL (65-115); Osmolality Calculated 283 mOsm/kg (285-295); Sodium 137 mmol/L (136-145); Total Bilirubin 0.4 mg/dL (0.15-1.2); Total Protein 7.2 g/dL (6.6-8.7)
[2020-05-22 21:48] LABS: Troponin(5th) Baseline 8 ng/L (0-10)
[2020-05-22 21:49] LABS: Anion Gap 17.7 (5-19); Aspartate Amino Transferase 15 U/L (0-32); Potassium 4.7 mmol/L (3.5-5.1)
[2020-05-22 21:50] LABS: Bilirubin Urine Neg (Negative); Nitrate Urine Negative (Negative); Urobilinogen Urine Norm (Negative)
[2020-05-22] MEDS: sodium chloride 0.9% 1,000 ML 999 ML IV (22:08)
[2020-05-22] MEDS: ketorolac 30 mg/mL INJ IVP (22:10)
[2020-05-22] MEDS: cefdinir 300 MG CAPSULE PO (23:09)
--- NOTE | 2020-05-23 10:12 | DCPLANNER ---
rn field case manager received message to schedule PCP appointment for patient. CM called patient with options and pt requested appt with [facility]. CM called [facility] and spoke to Zelda, who scheduled appt for 06/13/20 at 1030. CM called patient with appointment information.
--- NOTE | 2020-06-21 13:45 | DCPLANNER ---
Patient had a follow up appointment scheduled for 06.13.20 at [facility] - patient did not attend appointment.
== END 2020-05-22 23:16 | disposition home or self-care (01) ==
PROVIDERS: Emergency Provider Physician Assistant
DX: N30.01 Acute cystitis with hematuria (principal)
CPT/HCPCS: 70450; 80053; 81001; 84484; 84703; 85025; 87086; 96374; 96375; 99283; J1885; J7030

== ENCOUNTER 2020-07-28 16:34 | Emergency (ER) | payer MEDICAID, SELFPAY ==
[2020-07-28 17:07] VITALS: BP 147/80; PULSE 86; RESP 18; TEMP 36.8; O2SAT 98; BMI 43.1
[2020-07-28 20:21] VITALS: BP 156/90; PULSE 84; RESP 18; O2SAT 97
--- NOTE | 2020-07-28 20:26 | XRR_ITS ---
PROCEDURE INFORMATION: Exam: XR Chest Exam date and time: 07/28/2020 8:28 PM Age: 44 years old Clinical indication: Patient HX: Cough w/ low abd pain, running nose x1wk. TECHNIQUE: Imaging protocol: XR of the chest. Views: 1 view. COMPARISON: CR XR chest 1V portable [id number] 09/09/2019 6:53 PM FINDINGS: Lungs: Well inflated and clear. Pleural spaces: Unremarkable. No pleural effusion. No pneumothorax. Heart/Mediastinum: The cardiac shadow is normal in size. Bones/joints: No acute abnormality. XR/XR chest 1V portable [id number] IMPRESSION: No acute findings.
--- NOTE | 2020-07-28 20:27 | W.ED.ABDPA2 ---
HPI - Abdominal Pain General: Chief Complaint: General Medical Stated Complaint: COUGH, RUNNY NOSE X 1 WK Time Seen by Provider: 07/28/20 20:17 Source: patient Mode of arrival: ambulatory Limitations: no limitations History of Present Illness: HPI narrative: Patient is a 44-year-old female who presents to ED today with complaint of URI symptoms and stating she feels like her cough has caused her to have an abdominal hernia. Patient tells me she has had a nonproductive cough, runny nose, nasal congestion, sneezing, sinus pain/pressure over the past 1.5 weeks. She states over the past few days she notices after coughing she will get a sharp pain in the left side of her abdomen. She she rates her pain at the most severe times at a 10/10. She states pain does seem to improve with rest and lying down. She currently is rating her pain at a 4/10. Patient is passing flatulence. She has not noticed any changes to her bowel habits. No fevers. No vomiting. MD elicited complaint: abdominal pain Pertinent past history: none Onset (ago): day(s) Pain Consistency: intermittent Location: Other (L abdomen) Severity: moderate Quality: sharp Radiation: none Migration to: no migration Exacerbating factors: other (coughing, movement) Relieving factors: nothing Associated Symptoms: Denies change in bowel habits, change in stool character, chills, diarrhea, dysuria, fever(s), hematochezia, hematemesis, melena, nausea and vomiting Related Data: Date of Last Menstrual Period: 08/24/19 Patient : No Review of Systems Const: Denies: fever(s), chills, body aches, change in appetite, change in weight, fatigue or malaise Eyes: Denies: change in vision, blurry vision, photophobia, floaters or seeing flashes ENMT: Reports: nasal discharge, nasal congestion and sinus pain; Denies: throat pain, odynophagia, ear or mastoid pain, nasal obstruction or epistaxis Card: Denies: chest pain or palpitations Resp: Reports: non-productive cough; Denies: dyspnea, wheezing, change in phlegm color or hemoptysis GI: Reports: abdominal pain; Denies: nausea, vomiting, hematemesis, diarrhea, change in bowel habits, change in stool character, hematochezia or melena : Denies: flank pain or dysuria Musc: Denies: neck pain or back pain Skin/Breast: Denies: rash PFSH ED PFSH: Medical History (Updated 07/28/20 @ 21:43 by ROGER Dunn) GERD (gastroesophageal reflux disease) Surgical History H/O: History of cholecystectomy History of tubal ligation Right knee meniscal tear Family History Mother CAD (coronary artery disease) Heart attack Grandmother CAD (coronary artery disease) Maternal grandmother Other Cancer Dementia Diabetes Hypertension Stroke Social History Smoking and tobacco status: never smoked Alcohol intake: never Female Reproductive History: Date of last menstrual period: 08/24/19 Physical Exam Const: COMMON NORMALS: no acute distress, patient oriented x3, no limitations and alert GENERAL APPEARANCE: cooperative NUTRITIONAL APPEARANCE: obese morbidly obese ORIENTATION/CONSCIOUSNESS: Yes awake, Yes oriented to person, Yes oriented to place and Yes oriented to time HENMT: COMMON NORMALS: normocephalic, atraumatic and Normal external nose present HEAD & SCALP: normocephalic and atraumatic FACE & SINUS: sinus tenderness (mild maxillary) NOSE: Normal external nose present THROAT: posterior oropharynx normal, tonsils normal and uvula midline Neck/C-Spine: COMMON NORMALS: no lymphadenopathy Resp: COMMON NORMALS: normal respiratory effort and clear to auscultation bilaterally AUSCULTATION: clear to auscultation bilaterally Cardio: COMMON NORMALS: regular rate and regular rhythm RATE: regular rate RHYTHM: regular rhythm GI: COMMON NORMALS: Normal to inspection, nondistended, normoactive bowel sounds present, Soft to palpation, No hepatosplenomegaly present and no masses PALPATION: Yes Soft to palpation, Yes Tenderness to palpation present (GI) (L of umbilicus; no hernia appreciated; limited secondary to body habitus) and Yes No hepatosplenomegaly present : COMMON NORMALS: Yes no CVA tenderness BLADDER/KIDNEY EXAM: Yes no CVA tenderness Back/Pelvis: COMMON NORMALS: no CVA tenderness Neuro: COMMON NORMALS: patient oriented x3 SENSORIUM/ORIENTATION: Yes alert, Yes oriented to person, Yes oriented to place and Yes oriented to time Skin: COMMON NORMALS: no rashes or lesions noted GENERAL SKIN EXAM: no rashes or lesions noted TRAUMA: no lacerations or abrasions Course Vital Signs: Vital signs: Vital Signs Temperature 98.2 F 07/28/20 17:07 Pulse Rate 88 07/28/20 21:56 Respiratory Rate 16 07/28/20 21:56 Blood Pressure 126/56 07/28/20 21:56 Pulse Oximetry 97 07/28/20 21:56 MDM - Abdominal Pain MDM Narrative: Medical decision making narrative: Patient clinically appears in no acute distress. Her vital signs are perfect. Patient's labs are non-concerning. CXR is normal. CT abdomen/pelvis shows no acute abnormality. She was made aware of incidental findings of an ovarian cyst, uterine fibroid, and L5-S1 disc bulge. Patient's abdominal pain could be secondary to abdominal wall strain given her forceful coughing. Told patient most URI illnesses are viral in nature and do not require antibiotic therapy. She is requesting to help with her cough. Will prescribe her promethazine/codeine. Return to ED precautions given. Otherwise she can follow-up with primary care in 3 to 5 days. Lab Data: Labs: Lab Results 07/28/20 07/28/20 07/28/20 Range/Units 21:07 21:07 21:07 WBC 10.1 H (4.0-10.0) 10^3/ uL RBC 4.17 (4.1-5.3) 10^6/u L Hgb 12.5 (11.5-15.3) g/dL Hct 39.3 (37.0-47.0) % MCV 94.2 (81-99) fL MCH 30.0 (28.0-34.0) pg MCHC 31.8 (30.0-36.0) g/dL RDW 13.2 (12.1-15.1) % Plt Count 284 (130-400) 10^3/c mm MPV 11.0 H (7.4-10.4) fL Neut % (Auto) 63.0 % Lymph % (Auto) 25.3 % [place] % (Auto) 7.5 % Eos % (Auto) 3.2 % Baso % (Auto) 0.7 % Neut # (Auto) 6.35 (1.8-7.7) 10^3/u L Lymph # (Auto) 2.6 (0.8-4.8) 10^3/u L [place] # (Auto) 0.8 (0.2-0.9) 10^3/u L Eos # (Auto) 0.3 (0.0-0.8) 10^3/u L Baso # (Auto) 0.1 (0.0-0.1) 10^3/u L Nucleated RBC % (a uto) 0 % Nucleated RBCs # 0.0 /100WBC Sodium 135 L (136-145) mmol/L Potassium 3.8 (3.5-5.1) mmol/L Chloride 100 (98-107) mmol/L Carbon Dioxide 24 (22-29) mmol/L Anion Gap 14.8 (5-19) BUN 10 (6-20) mg/dL Creatinine 0.8 (0.5-0.9) mg/dL GFR Calculation 77.6 L (90-130) mL/min Glucose 93 (65-115) mg/dL Calculated Osmolal ity 279 L (285-295) mOsm/k g Calcium 8.2 L (8.5-10.5) mg/dL Total Bilirubin 0.4 (0.15-1.2) mg/dL AST 12 (0-32) U/L ALT 11 (0-33) U/L Alkaline Phosphata se 81 (35-105) IU/L Total Protein 6.4 L (6.6-8.7) g/dL Albumin 3.6 (3.5-5.2) g/dL Globulin 2.8 (1.3-4.6) g/dL HCG, Qual Negative (Negative) Imaging Data ^: CXR: Radiologist's impression: [address] [address]GCal ReportSigned Patient: Aisha Cooper #: [id number]: [id number]#:[id number]/Sex: 44 / FADM Date: 07/28/20Loc: ERRoom/Bed:Attending Dr: Ordering Provider/Ordering MD: Lyudmila Rodrigez Date of Service: 07/28/20 Procedure(s): XR chest 1V portable [id number] Accession Number(s): [id number] Report Number: [id number] PROCEDURE INFORMATION: Exam: XR Chest Exam date and time: 07/28/2020 8:28 PM Age: 44 years old Clinical indication: Patient HX: Cough w/ low abd pain, running nose x1wk. TECHNIQUE: Imaging protocol: XR of the chest. Views: 1 view. COMPARISON: CR XR chest 1V portable [id number] 09/09/2019 6:53 PM FINDINGS: Lungs: Well inflated and clear. Pleural spaces: Unremarkable. No pleural effusion. No pneumothorax. Heart/Mediastinum: The cardiac shadow is normal in size. Bones/joints: No acute abnormality. XR/XR chest 1V portable [id number] IMPRESSION: No acute findings. Dictated By:Jacqueline Live By:Jacqueline Live Date/Time:07/28/20D/ 21 CT Abd/Pel: Radiologist's impression: [employer] [address] [address] Scan Report Signed Patient: Aisha Cooper Unit #: [id number] : 1975 Age/Sex: 44 / F ADM Date: 07/28/20 Loc: ER Room/Bed: Attending Dr: Ordering Provider/Ordering MD: Lyudmila Rodrigez Date of Service: 07/28/20 Procedure(s): CT abdomen pelvis w con* [id number] Accession Number(s): [id number] Report Number: [id number] PROCEDURE INFORMATION: Exam: CT Abdomen And Pelvis With Contrast Exam date and time: 07/28/2020 8:30 PM Age: 44 years old Clinical indication: Abdominal pain; Localized; Prior surgery; Surgery type: Hernia repair. Gb. Tubal. Csection. ; Patient HX: Left sided abd pain. ; Additional info: L abdominal pain; Possible hernia TECHNIQUE: Imaging protocol: Computed tomography of the abdomen and pelvis with contrast. Radiation optimization: All CT scans at this facility use at least one of these dose optimization techniques: automated exposure control; mA and/or kV adjustment per patient size (includes targeted exams where dose is matched to clinical indication); or iterative reconstruction. Contrast material: OMNI 300; Contrast volume: 95 ml; Contrast route: INTRAVENOUS (IV); COMPARISON: CT abdomen pelvis w con* [id number] 06/11/2018 3:56 PM RADIATION DOSE METRICS: Total DLP (mGy-cm): 1786.72 FINDINGS: Lungs: The visualized lung bases are clear. Mediastinal space: Very small hiatal hernia. Liver: Normal size and density. No focal mass. Gallbladder and bile ducts: Status post cholecystectomy. Pancreas: No evidence of mass. No ductal dilation. Spleen: No splenomegaly or mass. Adrenal glands: Normal. Kidneys and ureters: No stones or hydronephrosis. No evidence of focal mass. Stomach and bowel: No evidence of obstruction. No focal bowel wall thickening or mass. No significant diverticula. Appendix: No evidence of appendicitis. Intraperitoneal space: No free air. No free fluid or evidence of abscess. Vasculature: No concerning abnormalities. Lymph nodes: No lymphadenopathy. Urinary bladder: Normal CT appearance. Reproductive: A 2.8 cm left ovarian cyst most likely physiologic. Nabothian cyst. Suspected approximately 2.5 cm intramural versus submucosal fibroid. Bones/joints: Disc bulge at the L5-S1 level with mild to moderate foraminal stenosis. Soft tissues: Within normal limits. CT/CT abdomen pelvis w con* [id number] IMPRESSION: 1. No abdominal wall or inguinal hernia identified. There is a very small hiatal hernia. 2. Suspected small uterine fibroid. Radiation Dose CTDIVOL = (mGy): DLP = 1786.72 (mGy-cm) Dictated By: Travis Live Signed By: Travis Live Signed Date/Time: 07/28/202130 DD/ 28 Discharge Plan Discharge Patient Disposition: Home Clinical Impression: Viral URI with cough Abdominal wall strain Qualifiers: Encounter type: initial encounter Qualified Code(s): S39.011A - Strain of muscle, fascia and tendon of abdomen, initial encounter Condition: Stable Prescriptions: New promethazine-codeine 6.25-10 mg/5 mL syrup 5 ml PO Q6H PRN (Reason: cough) Qty: 118 RF: 0 No Action clonidine HCl 0.1 mg tablet See Rx Instructions .ROUTE .COMPLEX PRN (Reason: HIGH BLOOD PRESSURE) RF: 0 albuterol sulfate 90 mcg/actuation HFA aerosol inhaler 2 puff INHALATION Q6H PRN (Reason: Shortness Of Breath) RF: 0 amlodipine 2.5 mg tablet 2.5 mg PO DAILY Qty: 30 RF: 2 naproxen [Naprosyn] 500 mg tablet 500 mg PO BID PRN (Reason: pain) Qty: 20 RF: 0 ibuprofen 200 mg Tablet 200 mg PO Q6H PRN (Reason: Pain) RF: 0 cetirizine 10 mg Tablet 10 mg PO DAILY PRN (Reason: Allergy Symptoms) RF: 0 Discharge Orders: Discharge ED (Routine); Ordered 07/28/20 Ordered By: Lyudmila Rodrigez Patient Instructions: Promethazine/Codeine (By mouth), Upper Respiratory Infection - Adult Coding Level of Care Code ED Skirt Clipper for Deandre Fwd Exam Comprehensive
[2020-07-28] MEDS: iohexol 300 mg/mL 100 mL Btl IV (20:55)
[2020-07-28 21:11] LABS: Basophils # 0.1 10^3/uL (0.0-0.1); Basophils % 0.7 %; Eosinophils # 0.3 10^3/uL (0.0-0.8); Eosinophils % 3.2 %; Hematocrit 39.3 % (37.0-47.0); Hemoglobin 12.5 g/dL (11.5-15.3); Lymphocytes # 2.6 10^3/uL (0.8-4.8); Lymphocytes % 25.3 %; Mean Corpuscular HGB Conc 31.8 g/dL (30.0-36.0); Mean Corpuscular Volume 94.2 fL (81-99); Monocytes # 0.8 10^3/uL (0.2-0.9); Monocytes % 7.5 %; Neutrophils # 6.35 10^3/uL (1.8-7.7); Nucleated Red Blood Cells % 0 %; Platelet Count 284 10^3/cmm (130-400); Red Blood Count 4.17 10^6/uL (4.1-5.3); Red Cell Distribution Width 13.2 % (12.1-15.1); White Blood Count 10.1 10^3/uL (4.0-10.0)
[2020-07-28 21:25] LABS: HCG, Serum Qual Negative (Negative)
[2020-07-28 21:27] LABS: Alanine Aminotransferase 11 U/L (0-33); Albumin Level 3.6 g/dL (3.5-5.2); Alkaline Phosphatase 81 IU/L (35-105); Anion Gap 14.8 (5-19); Aspartate Amino Transferase 12 U/L (0-32); Blood Urea Nitrogen 10 mg/dL (6-20); Calcium 8.2 mg/dL (8.5-10.5); Carbon Dioxide 24 mmol/L (22-29); Chloride 100 mmol/L (98-107); Globulin 2.8 g/dL (1.3-4.6); Glomerular Filtration Rate 77.6 mL/min (90-130); Glucose 93 mg/dL (65-115); Osmolality Calculated 279 mOsm/kg (285-295); Potassium 3.8 mmol/L (3.5-5.1); Sodium 135 mmol/L (136-145); Total Bilirubin 0.4 mg/dL (0.15-1.2); Total Protein 6.4 g/dL (6.6-8.7)
[2020-07-28 21:56] VITALS: BP 126/56; PULSE 88; RESP 16; O2SAT 97
== END 2020-07-28 21:57 | disposition home or self-care (01) ==
PROVIDERS: Emergency Provider Physician Assistant
DX: J06.9 Acute upper respiratory infection, unspecified (principal); S39.011A Strain of muscle, fascia and tendon of abdomen, initial encounter; X50.9XXA Other and unspecified overexertion or strenuous movements or postures, initial encounter
CPT/HCPCS: 71045; 74177; 80053; 84703; 85025; 99283; Q9967

== ENCOUNTER → 2020-09-18 17:36 | Outpatient (BNVA) | payer MEDICAID, SELFPAY | PROVIDERS: Visit Provider Nurse Practitioner Family | DX: M25.572 Pain in left ankle and joints of left foot (principal) | CPT/HCPCS: 73610 ==

== ENCOUNTER 2020-12-12 14:27 | Emergency (ER) | payer MEDICAID, SELFPAY ==
[2020-12-12 14:52] VITALS: BP 146/89; PULSE 68; RESP 18; TEMP 37; O2SAT 98; BMI 42.5
--- NOTE | 2020-12-12 15:05 | XR_ITS ---
WS: [id number] XR foot RT min 3V* [id number] REASON FOR EXAM: 2 weeks of heel pain, no known injury FINDINGS: The right foot is unchanged compared to previous examination of 11/26/2018. Moderate valgus deformity at the metatarsal-phalangeal joint of the great toe. No other significant bony or joint abnormality o f the forefoot. Mild joint space narrowing and subchondral sclerosis with small marginal osteophytes in the mid foot articulations. Subtalar joint is intact and well preserved. Small moderate enthesophyte at the Achilles insertion on the calcaneus. Tiny enthesophyte at the plan tar ligament insertion on the calcaneus. XR/XR foot RT min 3V* [id number] IMPRESSION: Right foot is unchanged compared to the previous examination with no acute abno rmality identified.
--- NOTE | 2020-12-12 15:07 | W.ED.EXTPRO ---
HPI - Extremity Problem General: Chief complaint: Extremity Injury, Lower Stated complaint: right foot swelling and pain Time Seen by Provider: 12/12/20 14:29 History of Present Illness: HPI Narrative: Patient is a 45-year-old female comes to the ED with right foot pain and swelling. Symptoms started approximately 2 weeks ago. Patient is unsure of any injury that caused symptoms. She states that most of her pain is predominantly in her heel and it gets worse she is up on her feet throughout the day. Patient says she has been using a cane to help her ambulate due to the pain. She rates the pain 5 out of 10 currently. Patient says she has a history of rheumatoid arthritis. Associated symptoms: Deny chest pain, fever(s) or rash Review of Systems Const: Denies: fever(s), chills or fatigue Eyes: Denies: change in vision or eye discomfort ENMT: Denies: throat pain, odynophagia, nasal discharge or nasal congestion Card: Denies: chest pain, palpitations, edema, swelling of feet/ankles, dyspnea on exertion or orthopnea Resp: Denies: dyspnea, productive cough or non-productive cough GI: Denies: abdominal pain, nausea, vomiting, diarrhea, constipation or hematochezia : Denies: flank pain, dysuria or hematuria Musc: Reports: extremity pain (Right foot) and extremity swelling (Right foot); Denies: neck pain or back pain Skin/Breast: Denies: rash or new lesions Neuro: Denies: headache(s), numbness in extremities or weakness in extremities [facility] PFSH: Medical History GERD (gastroesophageal reflux disease) Surgical History H/O: History of cholecystectomy History of tubal ligation Right knee meniscal tear Family History Mother CAD (coronary artery disease) Heart attack Grandmother CAD (coronary artery disease) Maternal grandmother Other Cancer Dementia Diabetes Hypertension Stroke Social History Smoking and tobacco status: never smoked Alcohol intake: never Female Reproductive History: Date of last menstrual period: 06/16/20 Physical Exam Const: COMMON NORMALS: no acute distress, patient oriented x3 and alert GENERAL APPEARANCE: cooperative and comfortable HENMT: COMMON NORMALS: normocephalic HEAD & SCALP: normocephalic MOUTH: Normal oral and palatal mucosa present THROAT: posterior oropharynx normal and uvula midline Neck/C-Spine: COMMON NORMALS: supple GENERAL: Yes normal visual inspection Resp: COMMON NORMALS: normal respiratory effort, No retractions, No use of accessory muscles and clear to auscultation bilaterally AUSCULTATION: clear to auscultation bilaterally Cardio: COMMON NORMALS: regular rate, regular rhythm, S1 normal heart sound present, S2 normal heart sound present, No gallops present (Cardio), No clicks present (Cardio), No murmurs present (Cardio) and Peripheral pulses 2+ throughout RATE: regular rate RHYTHM: regular rhythm HEART SOUNDS: S1 normal heart sound present and S2 normal heart sound present PERIPHERAL PULSES: Peripheral pulses 2+ throughout GI: COMMON NORMALS: Normal to inspection, nondistended, normoactive bowel sounds present, Soft to palpation, non-tender and no masses PALPATION: Yes Soft to palpation : COMMON NORMALS: Yes no CVA tenderness BLADDER/KIDNEY EXAM: Yes no CVA tenderness Back/Pelvis: COMMON NORMALS: no CVA tenderness Extremity: RIGHT LOWER EXTREMITY: Yes foot & digits Right foot and digits: Yes inspection (Mild swelling noted. No ecchymosis or deformity seen.), Yes palpation (Tenderness to palpation of heel), Yes ROM (Full range of motion) and Yes neurovascular exam (Intact) Neuro: COMMON NORMALS: patient oriented x3 and moves all extremities SENSORIUM/ORIENTATION: Yes alert Skin: GENERAL SKIN EXAM: dry skin Course Vital Signs: Vital signs: Vital Signs Temperature 98.6 F 12/12/20 14:52 Pulse Rate 68 12/12/20 14:52 Respiratory Rate 18 12/12/20 14:52 Blood Pressure 146/89 12/12/20 14:52 Pulse Oximetry 98 12/12/20 14:52 MDM - Extremity (Nontraumatic) MDM Narrative: Medical decision making narrative: Patient is a 45-year-old female comes to the ED with right foot pain pain. Based on exam findings patient appears to have plantar fasciitis. X-ray right foot showed no acute fractures or findings. Patient diagnosed with plantar fasciitis and discharged home with a prescription for ibuprofen 800 mg. She was also sent home with some crutches and told to rest ice and elevate right foot elbow symptoms. Patient does not have an established PCP and would like a referral. I placed order with case management for patient to be referred to a PCP to get established care with them. Return to ED precautions given. Patient understood and agree with plan. Imaging Data^: Xray Ortho: Attestation: I personally reviewed and interpreted this imaging study as follows: Radiologist's impression: [address] [place] [address] XRay Report Signed Patient: Aisha Cooper Unit #: [id number] : 1975 Age/Sex: 45 / F ADM Date: 12/12/20 Loc: ER Room/Bed: Attending Dr: Ordering Provider/Ordering MD: Isak Townsend Date of Service: 12/12/20 Procedure(s): XR foot RT min 3V* [id number] Accession Number(s): [id number] Report Number: [id number] WS: [id number] XR foot RT min 3V* [id number] REASON FOR EXAM: 2 weeks of heel pain, no known injury FINDINGS: The right foot is unchanged compared to previous examination of 11/26/2018. Moderate valgus deformity at the metatarsal-phalangeal joint of the great toe. No other significant bony or joint abnormality of the forefoot. Mild joint space narrowing and subchondral sclerosis with small marginal osteophytes in the mid foot articulations. Subtalar joint is intact and well preserved. Small moderate enthesophyte at the Achilles insertion on the calcaneus. Tiny enthesophyte at the plantar ligament insertion on the calcaneus. XR/XR foot RT min 3V* [id number] IMPRESSION: Right foot is unchanged compared to the previous examination with no acute abnormality identified. Dictated By: Shaan Berger Jr, MD Signed By: Shaan Berger Jr, MD Signed Date/Time: 12/12/201551 DD/ 154 Discharge Plan Discharge Patient Disposition: Home Clinical Impression: Plantar fasciitis of right foot Condition: Stable Prescriptions: New ibuprofen 800 mg tablet 800 mg PO Q8H PRN (Reason: pain) Qty: 20 RF: 0 No Action ibuprofen 200 mg Tablet 200 mg PO Q6H PRN (Reason: Pain) RF: 0 Discharge Orders: Discharge ED (Routine); Ordered 12/12/20 Ordered By: Isak Townsend Discharge Diet: Regular Discharge Activity: Increase activity as tolerated and Use walker/crutches as instructed Patient Instructions: Plantar Fasciitis (ED), Plantar Fasciitis Exercises (ED) Activity Restrictions/Additional Instructions: Follow-up with medical provider as directed. commercial lending relationship manager only contacting the next several days set up an appointment with a PCP. Rest, ice and elevate right foot throughout the day. Use crutches and limit weightbearing for the next couple days to help with symptoms. Take medications as prescribed. Return to the ER or your medical provider if condition worsens. Please read and understand discharge instructions. Thank you for choosing [facility] for your healthcare needs today. Please realize this is an emergency room and that we are providing you with a medical screening exam and this may not be complete and all inclusive of all the testing and or work up that you may need to determine your ailment or severity of your illness. It is very important that you follow up as instructed or that you return to the Emergency Department should you have concerns or if your condition changes or worsens in any way. Coding Level of Care Code ED Pairer for Deandre Shane Exam Comprehensive
[2020-12-12 17:05] VITALS: BP 134/71; PULSE 68; RESP 18; O2SAT 95
--- NOTE | 2020-12-14 11:25 | DCPLANNER ---
Addendum entered by Annalee Arambula 03/30/21 15:03: Patient had a follow up appointment scheduled for 12.19.20 at [facility], Dr. Alfaro - patient did attend appointment. Original Note: barn and property manager had message to speak with patient about getting established with a primary care physician. barn and property manager spoke with patient, she stated that she would like to get established with a primary care. barn and property manager called [facility], spoke with Lakeisha, gave clinic patients information. A follow up appointment was scheduled for Saturday, December 19, [address] at 8:[address] Alfaro. barn and property manager called patient and gave patient the appointment information.
== END 2020-12-12 17:05 | disposition home or self-care (01) ==
PROVIDERS: Emergency Provider Physician Assistant
DX: M72.2 Plantar fascial fibromatosis (principal)
CPT/HCPCS: 73630; 99283; E0114

== ENCOUNTER → 2020-12-19 09:52 | Outpatient (BNVA) | payer MEDICAID, SELFPAY | PROVIDERS: Visit Provider Family Medicine Adult Medicine | DX: I10 Essential (primary) hypertension (principal); E66.01 Morbid (severe) obesity due to excess calories; Z68.41 Body mass index [BMI] 40.0-44.9, adult; Z86.39 Personal history of other endocrine, nutritional and metabolic disease; R94.4 Abnormal results of kidney function studies; M10.9 Gout, unspecified; J45.909 Unspecified asthma, uncomplicated; Z13.6 Encounter for screening for cardiovascular disorders | CPT/HCPCS: 80053; 80061; 83036; 84443; 85651 ==

== ENCOUNTER → 2021-01-23 11:42 | Outpatient (BNVA) | payer MEDICAID, SELFPAY | PROVIDERS: Visit Provider Family Medicine Adult Medicine | DX: I10 Essential (primary) hypertension (principal); M10.9 Gout, unspecified; E66.01 Morbid (severe) obesity due to excess calories; Z68.41 Body mass index [BMI] 40.0-44.9, adult; R73.03 Prediabetes; F32.A Depression, unspecified; E78.5 Hyperlipidemia, unspecified | CPT/HCPCS: 80053; 83036; 84550 ==

== ENCOUNTER → 2022-01-01 12:26 | Outpatient (BNVA) | payer MEDICAID, SELFPAY | PROVIDERS: PCP Family Medicine Adult Medicine; Visit Provider Family Medicine Adult Medicine | DX: N39.3 Stress incontinence (female) (male) (principal); R73.03 Prediabetes; I10 Essential (primary) hypertension; E66.01 Morbid (severe) obesity due to excess calories; Z68.41 Body mass index [BMI] 40.0-44.9, adult; E78.5 Hyperlipidemia, unspecified; J45.909 Unspecified asthma, uncomplicated; M15.9 Polyosteoarthritis, unspecified; M10.9 Gout, unspecified; B35.4 Tinea corporis; N18.2 Chronic kidney disease, stage 2 (mild) | CPT/HCPCS: 80053; 83036; 84443; 85025 ==

== ENCOUNTER 2022-01-28 14:46 | Emergency (ER) | payer MEDICAID, SELFPAY ==
[2022-01-28 15:14] VITALS: BP 148/90; PULSE 79; TEMP 36.9; O2SAT 96; BMI 41.3
--- NOTE | 2022-01-28 15:30 | XRR_ITS ---
PROCEDURE INFORMATION: Exam: XR Chest Exam date and time: 01/28/2022 3:45 PM Age: 46 years old Clinical indication: Cough and shortness of breath; Patient HX: History--cough SOB congestion; Additional info: Cough, wheezing TECHNIQUE: Imaging protocol: Radiologic exam of the chest. Views: 2 views. COMPARISON: CR XR chest 1V portable [id number] 07/28/2020 8:27 PM FINDINGS: Lungs: Calcified right hilar nodes and/or mediastinal nodes and/or lung granulomas consistent with old granulomatous disease. Pleural spaces: Unremarkable. No pleural effusion. No pneumothorax. Heart/Mediastinum: Unremarkable. No cardiomegaly. Bones/joints: Moderate thoracic spondylosis. Organs: Surgical clips in the gallbladder fossa consistent with cholecystectomy. XR/XR chest 2V* [id number] IMPRESSION: No acute findings.
--- NOTE | 2022-01-28 15:30 | ED_ITS ---
HPI - General Adult General: Chief complaint: General Medical Stated complaint: cough,congestion,dizzy Time Seen by Provider: 01/28/22 15:24 History of Present Illness: 46-year-old female comes in today with cough congestion and dizziness. Patient does appear mildly unwell but nontoxic. Patient does have a history of asthma. Patient also has a history of some chronic kidney disease, obesity, hypertension, GERD. Associated symptoms: Reports dyspnea and rash; Deny nausea or vomiting Review of Systems Const: Denies: fever(s) Resp: Reports: dyspnea and non-productive cough GI: Denies: nausea or vomiting Musc: Denies: neck pain Skin/Breast: Reports: rash PFSH ED PFSH: Medical History (Updated 01/28/22 @ 16:28 by NITA Yusuf) Asthma CKD (chronic kidney disease), stage II Depression GERD (gastroesophageal reflux disease) Gout History of diabetes mellitus Hyperlipidemia Morbid obesity with BMI of 40.0-44.9, adult Osteoarthritis involving multiple joints on both sides of body Pre-diabetes Strain of right shoulder Stress incontinence Tinea corporis Surgical History H/O: History of cholecystectomy History of tubal ligation Right knee meniscal tear Family History Mother CAD (coronary artery disease) Heart attack Grandmother CAD (coronary artery disease) Maternal grandmother Other Cancer Dementia Diabetes Hypertension Stroke Social History (Updated 01/01/22 @ 11:37 by Yissel Leal LPN) Smoking and tobacco status: never smoked Smoking risk assessment/counseling performed?: No Alcohol intake: never Desire information about alcohol rehabilitation?: No Counseling given: No Desire information about substance/drug rehabilitation?: No Counseling given: No Adopted: No Caregiver/support person: No Lives independently: Yes Current occupational status: unemployed Current gender identity: Female Female Reproductive History: Date of last menstrual period: 08/24/19 Physical Exam Const: COMMON NORMALS: alert HENMT: COMMON NORMALS: normocephalic HEAD & SCALP: normocephalic TYMPANIC MEMBRANE: TM abnormal TM laterality: bilateral erythematous THROAT: posterior oropharynx normal Neck/C-Spine: COMMON NORMALS: full ROM and no meningeal signs Resp: COMMON NORMALS: normal respiratory effort AUSCULTATION: wheezes and diminished lung sounds Cardio: COMMON NORMALS: regular rate and regular rhythm RATE: regular rate RHYTHM: regular rhythm Extremity: COMMON NORMALS: no pedal edema Neuro: SENSORIUM/ORIENTATION: Yes alert MENINGEAL SIGNS: Yes no meningeal signs Skin: COMMON NORMALS: turgor normal GENERAL SKIN EXAM: turgor normal Course Vital Signs: Vital signs: Vital Signs Temperature 98.4 F 01/28/22 15:14 Pulse Rate 79 01/28/22 15:14 Blood Pressure 148/90 01/28/22 15:14 Pulse Oximetry 96 01/28/22 15:14 Oxygen Delivery Me thod 01/28/22 15:14 MDM - General Adult Medical Decision Making Patient comes in today for cough and congestion for the last 4 days with increasing ear pain and shortness of breath. On exam patient has some diminished lung sounds with wheezing. Bilateral TMs are slightly erythematous. Vital signs are normal. Differential diagnosis includes exacerbation of asthma, pneumonia, bronchitis, otitis media, upper respiratory infection. COVID and flu test were negative. Chest x-ray was unremarkable. Believe patient probably has a upper respiratory infection that has caused a bout of asthma exacerbation. We will cover patient with a steroid for the exacerbation of asthma. Patient was given doxycycline due to your TMs being erythematous and concerning for otitis media and bronchitis. Encourage fluids rest and follow-up with primary care. Lab Data Laboratory Results Influenza Type A Ag negative (Negative) 01/28/22 15:55 Influenza Type B Ag negative (Negative) 01/28/22 15:55 SARS-CoV-2 Ag (Rapid) negative (Negative) 01/28/22 15:55 Discharge Plan Discharge Patient Disposition: Home Clinical Impression: Asthma Qualifiers: Asthma severity: moderate Asthma persistence: persistent Asthma complication type: with acute exacerbation Qualified Code(s): J45.41 - Moderate persistent asthma with (acute) exacerbation Otitis media Qualifiers: Otitis media type: unspecified Chronicity: acute Qualified Code(s): H66.90 - Otitis media, unspecified, unspecified ear Condition: Stable Prescriptions: New doxycycline monohydrate 100 mg capsule 100 mg PO BID 7 Days Qty: 14 0RF prednisone 20 mg tablet 20 mg PO DAILY 5 Days Qty: 5 0RF No Action naproxen 500 mg tablet 500 mg PO BID PRN (Reason: pain) Qty: 60 1RF albuterol sulfate 90 mcg/actuation HFA aerosol inhaler 2 puff inhalation Q4H PRN (Reason: shortness of breath or wheezing) Qty: 17 3RF oxybutynin chloride 15 mg tablet extended release 24hr 15 mg PO DAILY Qty: 30 5RF ondansetron HCl 4 mg tablet 4 mg PO Q8H PRN (Reason: nausea and vomiting) Qty: 30 1RF Ozempic 0.25 mg or 0.5 mg(2 mg/1.5 mL) pen injector 0.25 mg SUBCUT .qweekly Qty: 1.5 0RF Rx Instructions: 0.2 ml weekly x2 then 0.4 ml weekly x2 allopurinol 300 mg tablet 300 mg PO DAILY Qty: 30 5RF nystatin 100,000 unit/gram cream 1 applic topical BID Qty: 30 5RF Discharge Orders: Discharge ED (Routine); Ordered 01/28/22 Ordered By: Noble Boswell Referrals: Jr Alfaro MD [Primary Care Provider] - Discharge Diet: Usual diet Discharge Activity: Increase activity as tolerated Patient Instructions: Acute Bronchitis (ED) Activity Restrictions/Additional Instructions: Use acetaminophen and ibuprofen for discomfort. Drink plenty of water. Use albuterol inhaler 2 puffs every 4 hours as needed for cough, chest congestion, or shortness of breath. Take antibiotics as directed for 7 days. Use prednisone daily for the next 5 days. Follow-up with primary care in 3 to 5 days for recheck. Return to ED for worsening symptoms such as increasing shortness of breath, inability to hold fluids down, or new concerns. Coding Level of Care Code ED Information [employer] for Deandre Fwasif Exam Detailed
[2022-01-28 16:23] LABS: Influenza A by IFA negative (Negative); Influenza B by IFA negative (Negative); SARS Covid-2 Antigen negative (Negative)
[2022-01-28] MEDS: dexamethasone 10 mg/mL INJ IM (16:41)
[2022-01-28] MEDS: doxycycline 100 mg Tablet PO (16:41)
== END 2022-01-28 16:45 | disposition home or self-care (01) ==
PROVIDERS: Emergency Provider Nurse Practitioner Family; PCP Family Medicine Adult Medicine
DX: J45.41 Moderate persistent asthma with (acute) exacerbation (principal); H66.90 Otitis media, unspecified, unspecified ear; Z20.822 Contact with and (suspected) exposure to COVID-19; E11.22 Type 2 diabetes mellitus with diabetic chronic kidney disease; N18.2 Chronic kidney disease, stage 2 (mild); E78.5 Hyperlipidemia, unspecified
CPT/HCPCS: 71046; 87426; 87804; 96372; 99284; J1100

== ENCOUNTER → 2022-04-26 08:29 | Outpatient (BNVA) | payer MEDICAID, SELFPAY | PROVIDERS: PCP Family Medicine Adult Medicine; Visit Provider Urology | DX: N39.3 Stress incontinence (female) (male) (principal) | CPT/HCPCS: 81003; 87077; 87086; 87186 ==

== ENCOUNTER 2022-05-15 21:35 | Emergency (ER) | payer MEDICAID, SELFPAY ==
--- NOTE | 2022-05-15 21:39 | XRR_ITS ---
PROCEDURE INFORMATION: Exam: XR Chest Exam date and time: 05/15/2022 9:45 PM Age: 46 years old Clinical indication: Cough TECHNIQUE: Imaging protocol: Radiologic exam of the chest. Views: 1 view. COMPARISON: CR XR chest 2V* [id number] 01/28/2022 3:45 PM FINDINGS: Lungs: Right mid lung calcified granuloma. Pleural spaces: Unremarkable. No pleural effusion. No pneumothorax. Heart/Mediastinum: Unremarkable. No cardiomegaly. Bones/joints: Unremarkable. XR/XR chest 1V portable [id number] IMPRESSION: Negative for infiltrate.
[2022-05-15 22:14] VITALS: BP 137/77; PULSE 86; RESP 16; TEMP 36.8; O2SAT 97; BMI 40.9
--- NOTE | 2022-05-15 22:21 | W.ED.GENADLT ---
HPI - General Adult General: Chief complaint: General Medical Stated complaint: sore throat, cough x 2 days,nausea,Headache Time Seen by Provider: 05/15/22 22:20 History of Present Illness: 46-year-old female comes in today with complaints of left upper jaw pain and upper respiratory infection symptoms. Patient reports cough and nasal congestion for about 2 days. Patient appears nontoxic. Patient appears in no pain. Patient reports history of asthma, chronic kidney disease, and obesity. Associated symptoms: Deny chest pain, rash or vomiting Review of Systems General: Reports: 10 or more systems reviewed and unremarkable except in HPI and below Const: Denies: fever(s) ENMT: Reports: dental pain and nasal discharge Card: Denies: chest pain Resp: Reports: non-productive cough GI: Denies: vomiting : Denies: difficulty voiding Skin/Breast: Denies: rash PFSH ED PFSH: Medical History Allergic rhinitis due to allergen Asthma CKD (chronic kidney disease), stage II Depression GERD (gastroesophageal reflux disease) Gout History of diabetes mellitus Hyperlipidemia Morbid obesity with BMI of 40.0-44.9, adult Osteoarthritis involving multiple joints on both sides of body Pre-diabetes Strain of right shoulder Stress incontinence Tinea corporis Surgical History H/O: History of cholecystectomy History of tubal ligation Right knee meniscal tear Family History Mother CAD (coronary artery disease) Heart attack Grandmother CAD (coronary artery disease) Maternal grandmother Other Cancer Dementia Diabetes Hypertension Stroke Social History Smoking and tobacco status: never smoked Smoking risk assessment/counseling performed?: No Alcohol intake: never Desire information about alcohol rehabilitation?: No Counseling given: No Desire information about substance/drug rehabilitation?: No Counseling given: No Adopted: No Caregiver/support person: No Lives independently: Yes Current occupational status: unemployed Current gender identity: Female Physical Exam Const: COMMON NORMALS: alert HENMT: COMMON NORMALS: normocephalic HEAD & SCALP: normocephalic THROAT: posterior oropharynx normal Neck/C-Spine: COMMON NORMALS: full ROM Resp: COMMON NORMALS: normal respiratory effort and clear to auscultation bilaterally AUSCULTATION: clear to auscultation bilaterally Cardio: COMMON NORMALS: regular rate and regular rhythm RATE: regular rate RHYTHM: regular rhythm GI: COMMON NORMALS: non-tender Extremity: COMMON NORMALS: normal to inspection and no pedal edema Neuro: SENSORIUM/ORIENTATION: Yes alert Skin: COMMON NORMALS: turgor normal GENERAL SKIN EXAM: turgor normal Course Vital Signs: Vital signs: Vital Signs Temperature 98.2 F 05/15/22 22:14 Pulse Rate 86 05/15/22 22:14 Respiratory Rate 16 05/15/22 22:14 Blood Pressure 137/77 05/15/22 22:14 Pulse Oximetry 97 05/15/22 22:14 Oxygen Delivery Me thod 05/15/22 22:14 MDM - General Adult Medical Decision Making 46-year-old female comes in today for complaints of dental pain and nasal drainage and cough. On exam patient is alert and oriented. Patient has tenderness and some mild swelling to the gingiva of a decayed premolar on the left upper side. Posterior pharynx pink moist. Lungs clear to auscultation. Vital signs are normal. Differential diagnosis includes rhinosinusitis, upper respiratory infection, dental abscess, viral infection. COVID and influenza test were negative. Believe the patient probably has upper respiratory infection along with a dental abscess. We will go ahead and treat for the dental abscess with Augmentin. Recommend follow-up with dentist for definitive care. Recommend follow-up with primary care as needed. Patient reported understanding agreed to plan. Lab Data Radiology Impressions Chest X-Ray 05/15/22 21:39 IMPRESSION: Negative for infiltrate. Laboratory Results Influenza Type A Ag negative (Negative) 05/15/22 22:10 Influenza Type B Ag negative (Negative) 05/15/22 22:10 SARS-CoV-2 Ag (Rapid) negative (Negative) 05/15/22 22:10 Discharge Plan Discharge Patient Disposition: Home Clinical Impression: Dental infection URI (upper respiratory infection) Qualifiers: URI type: unspecified URI Qualified Code(s): J06.9 - Acute upper respiratory infection, unspecified Condition: Stable Prescriptions: New amoxicillin-pot clavulanate 875-125 mg tablet 1 tab PO BID Qty: 14 0RF No Action naproxen 500 mg tablet 500 mg PO BID PRN (Reason: pain) Qty: 60 1RF albuterol sulfate 90 mcg/actuation HFA aerosol inhaler 2 puff inhalation Q4H PRN (Reason: shortness of breath or wheezing) Qty: 17 3RF oxybutynin chloride 15 mg tablet extended release 24hr 15 mg PO DAILY Qty: 30 5RF ondansetron HCl 4 mg tablet 4 mg PO Q8H PRN (Reason: nausea and vomiting) Qty: 30 1RF allopurinol 300 mg tablet 300 mg PO DAILY Qty: 30 5RF fluticasone propionate 50 mcg/actuation spray,suspension 1 spray intranasal BID Qty: 16 5RF Rx Instructions: administer into each nostril loratadine 10 mg tablet 10 mg PO DAILY PRN (Reason: allergic symptoms) Qty: 90 0RF nystatin 100,000 unit/gram powder 1 applic topical DAILY Qty: 60 5RF pantoprazole 40 mg tablet,delayed release (DR/EC) 40 mg PO DAILY PRN (Reason: acid reflux) Qty: 30 3RF Ozempic 0.25 mg or 0.5 mg(2 mg/1.5 mL) pen injector 0.5 mg SUBCUT .qweekly Qty: 3 0RF Rx Instructions: 0.5 ml weekly bupropion HCl 200 mg tablet sustained-release 12 hr 200 mg PO QAM Qty: 30 2RF Discharge Orders: Discharge ED (Routine); Ordered 05/15/22 Ordered By: Noble Boswell Referrals: rJ Alfaro MD [Primary Care Provider] - Discharge Diet: Usual diet Discharge Activity: Increase activity as tolerated Patient Instructions: Dental Abscess (ED) Activity Restrictions/Additional Instructions: Home and rest. Drink plenty of fluids. Use antibiotic as directed for dental infection. Follow-up with dentist for definitive care. Return to ED for new concerns. Coding Level of Care Code ED [employer] Senior Manager for Deandre Shane
[2022-05-15] MEDS: amoxicillin-clav 875-125 mg Tablet 1 TAB PO (22:40)
[2022-05-15 22:56] LABS: Influenza A by IFA negative (Negative); Influenza B by IFA negative (Negative)
[2022-05-15 22:58] LABS: SARS Covid-2 Antigen negative (Negative)
[2022-05-15 23:14] VITALS: BP 140/86; PULSE 66; RESP 17; TEMP 36.8; O2SAT 98
[2022-05-15 23:21] VITALS: BP 140/86; PULSE 66; RESP 17; TEMP 36.8; O2SAT 98
== END 2022-05-15 23:22 | disposition home or self-care (01) ==
PROVIDERS: Emergency Medicine; Emergency Provider Nurse Practitioner Family; PCP Family Medicine Adult Medicine
DX: K04.7 Periapical abscess without sinus (principal); J06.9 Acute upper respiratory infection, unspecified; Z20.822 Contact with and (suspected) exposure to COVID-19; E11.22 Type 2 diabetes mellitus with diabetic chronic kidney disease; N18.2 Chronic kidney disease, stage 2 (mild); E78.5 Hyperlipidemia, unspecified
CPT/HCPCS: 71045; 87426; 87804; 99284

== ENCOUNTER 2022-10-05 17:50 | Emergency (ER) | payer MEDICAID, SELFPAY ==
[2022-10-05 17:57] VITALS: BP 148/97; PULSE 89; RESP 16; TEMP 36.9; O2SAT 99
--- NOTE | 2022-10-05 18:11 | XRR_ITS ---
PROCEDURE INFORMATION: Exam: XR Right Tibia and Fibula Exam date and time: 10/05/2022 6:31 PM Age: 46 years old Clinical indication: Lower leg; Right; Patient HX: No known trauma; Pain x5 days; Additional info: Injury TECHNIQUE: Imaging protocol: Radiologic exam of the right tibia and fibula. Views: 2 views. COMPARISON: No relevant prior studies available. FINDINGS: Bones/joints: No fracture or other significant osseous abnormality is seen about the tibia or fibula. Knee and ankle joints appear maintained. Soft tissues: No significant focal soft tissue abnormality. XR/XR tibia fibula RT 2V [id number] IMPRESSION: No fracture or acute osseous abnormality.
--- NOTE | 2022-10-05 18:13 | XRR_ITS ---
PROCEDURE INFORMATION: Exam: XR Left Foot Exam date and time: 10/05/2022 6:31 PM Age: 46 years old Clinical indication: Lower leg; Right; Patient HX: Pain x5 days wo trauma TECHNIQUE: Imaging protocol: Radiologic exam of the left foot. Views: 3 or more views. COMPARISON: No relevant prior studies available. FINDINGS: Bones/joints: [id number] hallux valgus. Small plantar calcaneal spur and [id number] posterior calcaneal spur. Lateral view demonstrates mild amount of hypertrophic bony change dorsal tarsal region. No fracture or dislocation. No bone destruction or lesion. Soft tissues: No significant focal soft tissue abnormality. XR/XR foot LT min 3V* [id number] IMPRESSION: 1. Ctwn-[id number] hallux valgus. 2. Calcaneal spur formation and mild hypertrophic bony change tarsal region on the lateral view.. 3. No fracture or acute osseous abnormality.
--- NOTE | 2022-10-05 19:20 | ED_ITS ---
HPI - Extremity Problem General: Chief complaint: Extremity Problem,Nontraumatic Stated complaint: Left foot and ankle Time Seen by Provider: 10/05/22 19:20 History of Present Illness: Ms. Cooper is a 46-year-old lady presented the emergency department for evaluation of leg pain. She notes for the past few weeks having intermittent bilateral leg swelling with Discoloration and cold feeling. She developed left ankle and lower extremity pain that radiates up to her knee about 5 days ago. Denies known specific provoking event though may be heard a pop. Worse with palpation and movement. Moderate to severe in intensity at times. No other specific changes in health, exacerbating, or alleviating factors identified. Onset (ago): day(s) Location: left and lower extremity Quality: stabbing, aching and sharp Exacerbating factors: weight bearing and walking Associated symptoms: Reports other Review of Systems General: Reports: 10 or more systems reviewed and unremarkable except in HPI and below PFSH ED PFSH: Medical History Allergic rhinitis due to allergen Asthma CKD (chronic kidney disease), stage II Depression GERD (gastroesophageal reflux disease) Gout History of diabetes mellitus Hyperlipidemia Mixed stress and urge urinary incontinence Follow-up at [facility] urology clinic, also chronic cystitis. Morbid obesity with BMI of 40.0-44.9, adult Osteoarthritis involving multiple joints on both sides of body Pre-diabetes Strain of right shoulder Tinea corporis Surgical History H/O: History of cholecystectomy History of tubal ligation Right knee meniscal tear Family History Mother CAD (coronary artery disease) Heart attack Grandmother CAD (coronary artery disease) Maternal grandmother Other Cancer Dementia Diabetes Hypertension Stroke Social History Smoking and tobacco status: never smoked Smoking risk assessment/counseling performed?: No Alcohol intake: never Desire information about alcohol rehabilitation?: No Counseling given: No Substance/Drug Use: never Desire information about substance/drug rehabilitation?: No Counseling given: No Adopted: No Caregiver/support person: No Lives independently: Yes Current occupational status: unemployed Current gender identity: Female Physical Exam Const: COMMON NORMALS: alert GENERAL APPEARANCE: cooperative and well developed HENMT: COMMON NORMALS: normocephalic and atraumatic HEAD & SCALP: normocephalic and atraumatic Eye: COMMON NORMALS: conjunctivae normal CONJUNCTIVA: Yes conjunctivae normal SCLERA: sclerae normal Neck/C-Spine: COMMON NORMALS: supple GENERAL: Yes trachea midline Resp: COMMON NORMALS: normal respiratory effort EFFORT & INSPECTION: Yes able to speak in complete sentences Cardio: COMMON NORMALS: regular rate and regular rhythm RATE: regular rate RHYTHM: regular rhythm GI: COMMON NORMALS: Soft to palpation PALPATION: Yes Soft to palpation and No Tenderness to palpation present (GI) PERCUSSION: normal to percussion Extremity: NARRATIVE EXTREMITY EXAM: Left ankle tenderness palpation. Swelling and pain. CMS intact. GENERAL: Yes normal exam except as noted and No edema Neuro: COMMON NORMALS: moves all extremities SENSORIUM/ORIENTATION: Yes alert and No Orientation impaired Psych: COMMON NORMALS: mental status grossly normal and Normal thought process present THOUGHT PROCESS: Normal thought process present Course Vital Signs: Vital signs: Vital Signs Temperature 98.4 F 10/05/22 17:57 Pulse Rate 89 10/05/22 17:57 Respiratory Rate 16 10/05/22 17:57 Blood Pressure 148/97 10/05/22 17:57 Pulse Oximetry 99 10/05/22 17:57 Oxygen Delivery Me thod Room Air 10/05/22 17:57 MDM - Extremity (Nontraumatic) Medical Decision Making 46-year-old presenting with traumatic foot/leg injury. Exam as above. Nontoxic. No indication for labs. X-rays and DVT study are negative. Improved with treatment. The results of ED evaluation were discussed with the patient including prescriptions and/or symptomatic cares (if applicable) including appropriate and responsible use, followup plan, and return precautions. The patient verbalized understanding and felt safe for discharge. Medical Records I reviewed the patient's medical records. Lab Data I reviewed the patient's lab results. Radiology Impressions Tibia/Fibula X-Ray 10/05/22 18:11 IMPRESSION: No fracture or acute osseous abnormality. Foot X-Ray 10/05/22 18:13 IMPRESSION: 1. Ztkw-hj-hdyfofee hallux valgus. 2. Calcaneal spur formation and mild hypertrophic bony change tarsal region on the lateral view.. 3. No fracture or acute osseous abnormality. Venous Duplex 10/05/22 19:27 IMPRESSION: No evidence of deep vein thrombosis. Discharge Plan Discharge Patient Disposition: Home Clinical Impression: Ankle sprain Condition: Stable Prescriptions: New oxycodone 5 mg tablet 5 mg PO Q4H PRN (Reason: pain) Qty: 10 0RF No Action naproxen 500 mg tablet 500 mg PO BID PRN (Reason: pain) Qty: 60 1RF albuterol sulfate 90 mcg/actuation HFA aerosol inhaler 2 puff inhalation Q4H PRN (Reason: shortness of breath or wheezing) Qty: 17 3RF oxybutynin chloride 15 mg tablet extended release 24hr 15 mg PO DAILY Qty: 30 5RF ondansetron HCl 4 mg tablet 4 mg PO Q8H PRN (Reason: nausea and vomiting) Qty: 30 1RF allopurinol 300 mg tablet 300 mg PO DAILY Qty: 30 5RF fluticasone propionate 50 mcg/actuation spray,suspension 1 spray intranasal BID Qty: 16 5RF Rx Instructions: administer into each nostril loratadine 10 mg tablet 10 mg PO DAILY PRN (Reason: allergic symptoms) Qty: 90 0RF nystatin 100,000 unit/gram powder 1 applic topical DAILY Qty: 60 5RF pantoprazole 40 mg tablet,delayed release (DR/EC) 40 mg PO DAILY PRN (Reason: acid reflux) Qty: 30 3RF Ozempic 0.25 mg or 0.5 mg(2 mg/1.5 mL) pen injector 0.5 mg SUBCUT .qweekly Qty: 3 0RF Rx Instructions: 0.5 ml weekly bupropion HCl 200 mg tablet sustained-release 12 hr 200 mg PO QAM Qty: 30 2RF amoxicillin-pot clavulanate 875-125 mg tablet 1 tab PO BID Qty: 14 0RF Discharge Orders: Discharge ED (Routine); Ordered 10/05/22 Ordered By: Paulo Robles Referrals: Jr Alfaro MD [Primary Care Provider] - Discharge Diet: Usual diet Discharge Activity: Increase activity as tolerated Patient Instructions: Ankle Sprain (ED), P.R.I.C.E. Treatment (ED), Opioid Safety Activity Restrictions/Additional Instructions: Thank you for visiting the emergency department. You were seen and evaluated for ankle pain. The exact cause of your symptoms is unclear however does not appear to need hospitalization at this time. Please follow-up with a primary care provider. I will place a case management referral for podiatry follow-up. You may use [id number] medications such as acetaminophen and ibuprofen for pain however please do not exceed the daily recommended dosage as listed on the packaging and please keep in mind that many namebrand medications contain the same active ingredients. Please avoid these medications if previously instructed to do so by another physician due to other underlying medical condition. Return for uncontrolled symptoms or anything else that you are concerned about and feel needs emergency department evaluation. Coding Level of Care Code ED Dining [employer] Server for Deandre Shane
--- NOTE | 2022-10-05 19:27 | USR_ITS ---
PROCEDURE INFORMATION: Exam: US Duplex Lower Extremity Veins, Bilateral Exam date and time: 10/05/2022 7:54 PM Age: 46 years old Clinical indication: Pain; Leg, lower; Bilateral; Additional info: Swelling, pain, temp/color changes TECHNIQUE: Imaging protocol: Real-time duplex ultrasound of the bilateral extremities with 2-D wilson scale, color Doppler flow and spectral waveform analysis including responses to compression and other maneuvers (when performed) with image documentation. Complete exam focused on the lower extremity veins. COMPARISON: CR (LOW EXM, ) 10/05/2022 6:31 PM FINDINGS: Right deep veins: Unremarkable. The common femoral, femoral, proximal profunda femoral and popliteal veins are patent without thrombus, as well as visualized calf veins. Normal Doppler waveforms. Normal compressibility and/or augmentation response. Left deep veins: Unremarkable. The common femoral, femoral, proximal profunda femoral and popliteal veins are patent without thrombus, as well as visualized calf veins. Normal Doppler waveforms. Normal compressibility and/or augmentation response. Superficial veins: Bilateral saphenofemoral junctions are patent without thrombus. Soft tissues: Unremarkable. US/[place] [id number] IMPRESSION: No evidence of deep vein thrombosis.
[2022-10-05] MEDS: acetaminophen 500 mg Tablet 1000 MG PO (19:41)
[2022-10-05] MEDS: ketorolac 30 mg/mL INJ IM (19:41)
--- NOTE | 2022-10-07 07:46 | DCPLANNER ---
Addendum entered by Annalee Arambula 10/16/22 10:40: solar energy installation manager received the following message from the ortho clinic regarding follow up appointment: pt does not have a vm set up. Original Note: solar energy installation manager had message to schedule a follow up appointment for patient with podiatry. solar energy installation manager sent patients information to the front office staff at podiatry. Patients information will be printed and reviewed. Clinic will call patient with appointment information.
== END 2022-10-05 21:22 | disposition home or self-care (01) ==
PROVIDERS: Emergency Provider Emergency Medicine; PCP Family Medicine Adult Medicine
DX: S93.402A Sprain of unspecified ligament of left ankle, initial encounter (principal); X58.XXXA Exposure to other specified factors, initial encounter; E11.22 Type 2 diabetes mellitus with diabetic chronic kidney disease; N18.2 Chronic kidney disease, stage 2 (mild); E78.5 Hyperlipidemia, unspecified
CPT/HCPCS: 73590; 73630; 93970; 96372; 99284; J1885

== ENCOUNTER 2023-03-22 14:50 | Emergency (ER) | payer MEDICAID, SELFPAY ==
[2023-03-22 15:02] VITALS: BP 187/109; PULSE 85; RESP 16; TEMP 37; O2SAT 97; BMI 43.4
--- NOTE | 2023-03-22 15:39 | ED_ITS ---
Documented by User: ROGER Gonzalez 03/22/23 15:44 HPI - Dental/Oral General: Chief complaint: Dental/Oral Stated complaint: tooth pulled 03/20, mouth pain Time Seen by Provider: 03/22/23 14:54 Source: patient Mode of arrival: ambulatory Limitations: no limitations History of Present Illness: Patient presents emergency department today for evaluation treatment of onset of left upper dental pain. Patient reports that for quite some time she had had a broken tooth in this area. She notified a dentist to 2 months ago started her on prophylactic antibiotics and on 03/20, pulled the tooth and filled cavities in the tooth in front and behind it. She states she was doing fine, treating with NSAID for pain but, during the night had onset of significant pain to the left upper jawline. She feels like she is getting swelling of her left cheek. She denies receiving any antibiotics after her procedure. Review of Systems General: Reports: 10 or more systems reviewed and unremarkable except in HPI and below PFSH ED PFSH: Medical History Mixed stress and urge urinary incontinence Follow-up at [facility] urology clinic, also chronic cystitis. Allergic rhinitis due to allergen CKD (chronic kidney disease), stage II Tinea corporis Gout Osteoarthritis involving multiple joints on both sides of body Depression Hyperlipidemia Pre-diabetes Asthma History of diabetes mellitus Morbid obesity with BMI of 40.0-44.9, adult Strain of right shoulder GERD (gastroesophageal reflux disease) Surgical History Right knee meniscal tear History of cholecystectomy History of tubal ligation H/O: Family History Mother CAD (coronary artery disease) Heart attack Grandmother CAD (coronary artery disease) Maternal grandmother Other Cancer Dementia Diabetes Hypertension Stroke Social History Smoking and tobacco/nicotine status: never used tobacco/nicotine Alcohol intake: never Substance/Drug Use: never Adopted: No Caregiver/support person: No Lives independently: Yes Current occupational status: unemployed Current gender identity: Female Physical Exam Const: COMMON NORMALS: no acute distress, patient oriented x3 and alert HENMT: OTHER: Mucous membranes are moist. Patient has a large hole in the gumline to the left upper jaw approximately tooth #15. No signs of any active bleeding but concerns for dry socket formation. Tissue within the socket is very pale and macerated. Airway is patent. Eye: COMMON NORMALS: Equal, round and reactive pupils present, EOMs intact bilaterally and conjunctivae normal CONJUNCTIVA: Yes conjunctivae normal PUPIL: Yes Equal, round and reactive pupils present Neck/C-Spine: COMMON NORMALS: no JVD Lymph: LYMPHATIC: no lymphadenopathy noted Resp: COMMON NORMALS: normal respiratory effort, No retractions and No use of accessory muscles Cardio: COMMON NORMALS: no JVD and regular rate RATE: regular rate : COMMON NORMALS: Yes no CVA tenderness BLADDER/KIDNEY EXAM: Yes no CVA tenderness Back/Pelvis: COMMON NORMALS: no CVA tenderness, thoracic and lumbar spine normal to inspection and thoraco-lumbar ROM normal Extremity: COMMON NORMALS: normal to inspection, full ROM and no pedal edema Neuro: COMMON NORMALS: patient oriented x3 SENSORIUM/ORIENTATION: Yes alert Skin: COMMON NORMALS: no rashes or lesions noted and turgor normal GENERAL SKIN EXAM: no rashes or lesions noted and turgor normal Course Vital Signs: Vital signs: Vital Signs Temperature 98.6 F 03/22/23 15:02 Pulse Rate 74 03/22/23 15:44 Respiratory Rate 18 03/22/23 15:44 Blood Pressure 174/97 03/22/23 15:44 Pulse Oximetry 98 03/22/23 15:44 Oxygen Delivery Me thod Room Air 03/22/23 15:02 MDM - Dental/Oral Medical Decision Making Patient presents today for acute worsening of dental pain after tooth extraction 48 hours ago. Based on the timeline and physical examination I am suspicious patient has developed a dry socket. Unfortunately, she needs to be seen by her dentist but, as it is the weekend and Friday is a holiday, will most likely not be able to be seen until Friday at the earliest. Patient will be started on a short course of antibiotics and encouraged to still use NSAIDs. Patient is also given some viscous lidocaine to help topically with pain during this time. Dr. Alaniz has also provided a short course of pain medication for this patient. She is aware of the need to follow-up with her dentist for definitive management of this finding. Informational handout regarding dry sockets provided to the patient. Patient verbalizes understanding and agreement to treatment plan. Differential Diagnosis Unlikely gingival abscess, dental caries, toothache, dental abscess, fracture of tooth or aphthous ulcer No radiology studies performed this visit Discharge Plan Discharge Patient Disposition: Home Clinical Impression: Pain, dental, Status post tooth extraction Condition: Stable Prescriptions: New amoxicillin-pot clavulanate 875-125 mg tablet 1 tab PO BID 10 Days Qty: 20 0RF Lidocaine Viscous 2 % solution 1 applic mucous membrane Q8H PRN (Reason: pain) Qty: 100 0RF hydrocodone-acetaminophen 10-325 mg tablet 1 tab PO Q6H PRN (Reason: pain) Qty: 14 0RF No Action naproxen 500 mg tablet 500 mg PO BID PRN (Reason: pain) Qty: 60 1RF albuterol sulfate 90 mcg/actuation HFA aerosol inhaler 2 puff inhalation Q4H PRN (Reason: shortness of breath or wheezing) Qty: 17 3RF oxybutynin chloride 15 mg tablet extended release 24hr 15 mg PO DAILY Qty: 30 5RF ondansetron HCl 4 mg tablet 4 mg PO Q8H PRN (Reason: nausea and vomiting) Qty: 30 1RF allopurinol 300 mg tablet 300 mg PO DAILY Qty: 30 5RF fluticasone propionate 50 mcg/actuation spray,suspension 1 spray intranasal BID Qty: 16 5RF Rx Instructions: administer into each nostril loratadine 10 mg tablet 10 mg PO DAILY PRN (Reason: allergic symptoms) Qty: 90 0RF nystatin 100,000 unit/gram powder 1 applic topical DAILY Qty: 60 5RF pantoprazole 40 mg tablet,delayed release (DR/EC) 40 mg PO DAILY PRN (Reason: acid reflux) Qty: 30 3RF Ozempic 0.25 mg or 0.5 mg(2 mg/1.5 mL) pen injector 0.5 mg SUBCUT .qweekly Qty: 3 0RF Rx Instructions: 0.5 ml weekly bupropion HCl 200 mg tablet sustained-release 12 hr 200 mg PO QAM Qty: 30 2RF oxycodone 5 mg tablet 5 mg PO Q4H PRN (Reason: pain) Qty: 10 0RF amoxicillin-pot clavulanate 875-125 mg tablet 1 tab PO BID Qty: 14 0RF Discharge Orders: Discharge ED (Routine); Ordered 03/22/23 Ordered By: Isa Uribe Referrals: Jr Alfaro MD [Primary Care Provider] - Discharge Diet: Advance as tolerated Discharge Activity: Resume usual activity Patient Instructions: Dry Socket (ED), Opioid Safety Activity Restrictions/Additional Instructions: Based on her examination today I am suspicious that you have developed a dry socket from your tooth extraction. This can be extremely uncomfortable but you do need to follow-up with your dentist. As it may be a couple of days before their office is open we are providing you medication from the emergency department while you are waiting. We do recommend warm salt water rinses multiple times throughout the day in addition to these medications. Coding Level of Care Code ED Sales Floor Associate for Chg Fwd Documented by User: Jose Francisco Alaniz MD 03/23/23 22:17 HPI - Dental/Oral General: Chief complaint: Dental/Oral Stated complaint: tooth pulled 03/20, mouth pain Time Seen by Provider: 03/22/23 14:54 Review of Systems ENMT: Reports: mouth pain and dental pain PFS ED PFSH: Medical History Mixed stress and urge urinary incontinence Follow-up at [facility] urology clinic, also chronic cystitis. Allergic rhinitis due to allergen CKD (chronic kidney disease), stage II Tinea corporis Gout Osteoarthritis involving multiple joints on both sides of body Depression Hyperlipidemia Pre-diabetes Asthma History of diabetes mellitus Morbid obesity with BMI of 40.0-44.9, adult Strain of right shoulder GERD (gastroesophageal reflux disease) Surgical History Right knee meniscal tear History of cholecystectomy History of tubal ligation H/O: Family History Mother CAD (coronary artery disease) Heart attack Grandmother CAD (coronary artery disease) Maternal grandmother Other Cancer Dementia Diabetes Hypertension Stroke Social History Smoking and tobacco/nicotine status: never used tobacco/nicotine Alcohol intake: never Substance/Drug Use: never Adopted: No Caregiver/support person: No Lives independently: Yes Current occupational status: unemployed Current gender identity: Female Course Vital Signs: Vital signs: Vital Signs Temperature 98.6 F 03/22/23 15:02 Pulse Rate 74 03/22/23 15:44 Respiratory Rate 18 03/22/23 15:44 Blood Pressure 174/97 03/22/23 15:44 Pulse Oximetry 98 03/22/23 15:44 Oxygen Delivery Me thod Room Air 03/22/23 15:02 Discharge Plan Discharge Patient Disposition: Home Clinical Impression: Pain, dental, Status post tooth extraction Condition: Stable Prescriptions: New amoxicillin-pot clavulanate 875-125 mg tablet 1 tab PO BID 10 Days Qty: 20 0RF Lidocaine Viscous 2 % solution 1 applic mucous membrane Q8H PRN (Reason: pain) Qty: 100 0RF hydrocodone-acetaminophen 10-325 mg tablet 1 tab PO Q6H PRN (Reason: pain) Qty: 14 0RF No Action naproxen 500 mg tablet 500 mg PO BID PRN (Reason: pain) Qty: 60 1RF albuterol sulfate 90 mcg/actuation HFA aerosol inhaler 2 puff inhalation Q4H PRN (Reason: shortness of breath or wheezing) Qty: 17 3RF oxybutynin chloride 15 mg tablet extended release 24hr 15 mg PO DAILY Qty: 30 5RF ondansetron HCl 4 mg tablet 4 mg PO Q8H PRN (Reason: nausea and vomiting) Qty: 30 1RF allopurinol 300 mg tablet 300 mg PO DAILY Qty: 30 5RF fluticasone propionate 50 mcg/actuation spray,suspension 1 spray intranasal BID Qty: 16 5RF Rx Instructions: administer into each nostril loratadine 10 mg tablet 10 mg PO DAILY PRN (Reason: allergic symptoms) Qty: 90 0RF nystatin 100,000 unit/gram powder 1 applic topical DAILY Qty: 60 5RF pantoprazole 40 mg tablet,delayed release (DR/EC) 40 mg PO DAILY PRN (Reason: acid reflux) Qty: 30 3RF Ozempic 0.25 mg or 0.5 mg(2 mg/1.5 mL) pen injector 0.5 mg SUBCUT .qweekly Qty: 3 0RF Rx Instructions: 0.5 ml weekly bupropion HCl 200 mg tablet sustained-release 12 hr 200 mg PO QAM Qty: 30 2RF oxycodone 5 mg tablet 5 mg PO Q4H PRN (Reason: pain) Qty: 10 0RF amoxicillin-pot clavulanate 875-125 mg tablet 1 tab PO BID Qty: 14 0RF Discharge Orders: Discharge ED (Routine); Ordered 03/22/23 Ordered By: Isa Uribe Referrals: Jr Alfaro MD [Primary Care Provider] - Discharge Diet: Advance as tolerated Discharge Activity: Resume usual activity Patient Instructions: Dry Socket (ED), Opioid Safety Activity Restrictions/Additional Instructions: Based on her examination today I am suspicious that you have developed a dry socket from your tooth extraction. This can be extremely uncomfortable but you do need to follow-up with your dentist. As it may be a couple of days before their office is open we are providing you medication from the emergency department while you are waiting. We do recommend warm salt water rinses multiple times throughout the day in addition to these medications. Coding Level of Care Code ED Sales Floor Associate for Deandre Shane
[2023-03-22 15:44] VITALS: BP 174/97; PULSE 74; RESP 18; O2SAT 98
== END 2023-03-22 15:45 | disposition home or self-care (01) ==
PROVIDERS: Emergency Provider Physician Assistant; PCP Family Medicine Adult Medicine
DX: K08.89 Other specified disorders of teeth and supporting structures (principal); Z98.818 Other dental procedure status; E11.22 Type 2 diabetes mellitus with diabetic chronic kidney disease; N18.2 Chronic kidney disease, stage 2 (mild); E78.5 Hyperlipidemia, unspecified
CPT/HCPCS: 99284

== ENCOUNTER → 2023-05-14 09:56 | Outpatient (BNVA) | payer MEDICAID, SELFPAY | PROVIDERS: PCP Family Medicine Adult Medicine; Visit Provider Nurse Practitioner Women's Health | DX: R30.0 Dysuria (principal) | CPT/HCPCS: 81000; 87086 ==

== ENCOUNTER 2023-06-18 16:05 | Emergency (ER) | payer MEDICAID, SELFPAY ==
--- NOTE | 2023-06-18 16:07 | XRR_ITS ---
PROCEDURE INFORMATION: Exam: XR Left Ankle Exam date and time: 06/18/2023 3:45 PM Age: 47 years old Clinical indication: Injury or trauma; Fall; Blunt trauma; Ankle; Left TECHNIQUE: Imaging protocol: Radiologic exam of the left ankle. Views: 3 or more views. COMPARISON: CR XR ankle LT min 3V* [id number] 09/18/2020 5:39 PM FINDINGS: Bones/joints: No fracture or other acute abnormality. Ankle mortise appears anatomic. There is a tiny talar beak. Soft tissues: Normal. XR/XR ankle LT min 3V* [id number] IMPRESSION: No acute findings.
--- NOTE | 2023-06-18 16:07 | XRR_ITS ---
PROCEDURE INFORMATION: Exam: XR Left Foot Exam date and time: 06/18/2023 3:45 PM Age: 47 years old Clinical indication: Injury or trauma; Other: Rolled ankle; Sprain or strain; Left TECHNIQUE: Imaging protocol: Radiologic exam of the left foot. Views: 3 or more views. COMPARISON: CR XR foot LT min 3V* [id number] 10/05/2022 6:31 PM FINDINGS: Bones/joints: Minimally increased moderate hallux valgus. Unchanged mild arthritis left 1st metatarsophalangeal joint. Slightly progressed mild-moderate arthritic changes throughout the tarsus and involving most tarsometatarsal articulations. Unchanged large left posterior calcaneal spur and tiny left inferior calcaneal osteophyte. Otherwise, unremarkable. Soft tissues: Bunion. Unchanged. Otherwise, unremarkable soft tissues. XR/XR foot LT min 3V* [id number] IMPRESSION: 1. Minimally increased moderate hallux valgus. 2. Slightly progressed mild-moderate arthritic changes in the midfoot. 3. No other acute findings.
[2023-06-18 16:13] VITALS: BP 160/101; PULSE 85; RESP 16; TEMP 36.3; O2SAT 97; BMI 43.5
--- NOTE | 2023-06-18 16:53 | W.ED.EXTPRO ---
HPI - Extremity Problem General: Chief complaint: Extremity Injury, Lower Stated complaint: left ankle pain Time Seen by Provider: 06/18/23 16:41 Source: patient Mode of arrival: ambulatory Limitations: no limitations History of Present Illness: 47-year-old female states she rolled her ankle on states she has had pain in the lateral portion of her ankle since then. She states she took her's grandson to a [employer] land and walked around a bunch on Friday on that ankle states that since then she has had some more swelling and pain patient ambulates she rates her pain currently a 5 out of 10 denies any new injuries. Associated symptoms: Deny chest pain, fever(s) or rash Review of Systems Const: Denies: fever(s), chills, body aches or change in appetite ENMT: Denies: throat pain or dental pain Card: Denies: chest pain Resp: Denies: dyspnea GI: Denies: abdominal pain, nausea, vomiting or diarrhea Musc: Reports: extremity pain; Denies: neck pain or back pain Skin/Breast: Denies: rash Neuro: Denies: headache(s) PFSH ED PFSH: Medical History Mixed stress and urge urinary incontinence Follow-up at [facility] urology clinic, also chronic cystitis. Allergic rhinitis due to allergen CKD (chronic kidney disease), stage II Tinea corporis Gout Osteoarthritis involving multiple joints on both sides of body Depression Hyperlipidemia Pre-diabetes Asthma History of diabetes mellitus Morbid obesity with BMI of 40.0-44.9, adult Strain of right shoulder GERD (gastroesophageal reflux disease) Surgical History Right knee meniscal tear History of cholecystectomy History of tubal ligation H/O: Family History Mother CAD (coronary artery disease) Heart attack Grandmother CAD (coronary artery disease) Maternal grandmother Other Cancer Dementia Diabetes Hypertension Stroke Social History Smoking and tobacco/nicotine status: never used tobacco/nicotine Alcohol intake: never Substance/Drug Use: never Adopted: No Caregiver/support person: No Lives independently: Yes Current occupational status: unemployed Current gender identity: Female Physical Exam Const: COMMON NORMALS: no acute distress, patient oriented x3 and healthy appearing HENMT: COMMON NORMALS: normocephalic and atraumatic HEAD & SCALP: normocephalic and atraumatic Eye: COMMON NORMALS: Equal, round and reactive pupils present PUPIL: Yes Equal, round and reactive pupils present Neck/C-Spine: COMMON NORMALS: full ROM Chest: COMMONS NORMALS: normal inspection of the chest Resp: COMMON NORMALS: normal respiratory effort Cardio: COMMON NORMALS: regular rate RATE: regular rate Extremity: COMMON NORMALS: full ROM NARRATIVE EXTREMITY EXAM: Tenderness noted over left lateral ankle no obvious deformity Neuro: COMMON NORMALS: patient oriented x3, moves all extremities and no focal motor deficits Psych: COMMON NORMALS: mental status grossly normal, Normal thought process present and cooperative THOUGHT PROCESS: Normal thought process present Skin: COMMON NORMALS: no rashes or lesions noted and no wounds GENERAL SKIN EXAM: no rashes or lesions noted Course Vital Signs: Vital signs: Vital Signs Temperature 97.3 F L 06/18/23 16:13 Pulse Rate 85 06/18/23 16:13 Respiratory Rate 16 06/18/23 16:13 Blood Pressure 160/101 06/18/23 16:13 Pulse Oximetry 97 06/18/23 16:13 Oxygen Delivery Me thod Room Air 06/18/23 16:13 MDM - Extremity (Nontraumatic) Medical Decision Making Patient presents for an ankle sprain x-ray shows no fracture will place Abdullahi wrap she is weight-bear as tolerated she is follow-up with PCP return if worsening. Medical Records I reviewed the patient's medical records. Lab Data Radiology Impressions Ankle X-Ray 06/18/23 16:07 IMPRESSION: No acute findings. All radiology interpretation(s) finalized by discharge Discharge Plan Discharge Patient Disposition: Home Clinical Impression: Ankle sprain and strain Condition: Stable Prescriptions: New Naprosyn 500 mg tablet 500 mg PO BID PRN (Reason: pain) Qty: 20 0RF No Action metronidazole 500 mg tablet 500 mg PO BID 7 Days Qty: 14 0RF azithromycin 500 mg tablet See Rx Instructions PO .COMPLEX Qty: 3 0RF Rx Instructions: For 500 mg dose pack: take 500 mg once daily for 3 days PO Discharge Orders: Discharge ED (Routine); Ordered 06/18/23 Ordered By: Boaz Funes Referrals: Jr Alfaro MD [Primary Care Provider] - 1-3 days Discharge Diet: Advance as tolerated Discharge Activity: Resume usual activity Patient Instructions: Ankle Sprain (ED) Coding Level of Care Code ED Boiler Control Technician for Deandre Shane
[2023-06-18] MEDS: naproxen 500 mg Tablet PO (17:19)
[2023-06-18 17:25] VITALS: BP 160/101; PULSE 85; RESP 16; TEMP 36.3; O2SAT 97
== END 2023-06-18 17:26 | disposition home or self-care (01) ==
PROVIDERS: Emergency Provider Emergency Medicine; PCP Family Medicine Adult Medicine
DX: S93.402A Sprain of unspecified ligament of left ankle, initial encounter (principal); S96.912A Strain of unspecified muscle and tendon at ankle and foot level, left foot, initial encounter; E11.22 Type 2 diabetes mellitus with diabetic chronic kidney disease; N18.2 Chronic kidney disease, stage 2 (mild); E78.5 Hyperlipidemia, unspecified; X50.1XXA Overexertion from prolonged static or awkward postures, initial encounter
CPT/HCPCS: 73610; 73630; 99283; E0114

== ENCOUNTER 2023-09-28 15:18 | Emergency (ER) | payer MEDICAID, SELFPAY ==
[2023-09-28 15:45] VITALS: BP 179/85; PULSE 80; RESP 17; TEMP 36.8; O2SAT 96; BMI 41.3
--- NOTE | 2023-09-28 16:01 | ED_ITS ---
HPI - Extremity Problem General: Chief complaint: Extremity Injury, Lower Stated complaint: right foot pain Time Seen by Provider: 09/28/23 15:59 History of Present Illness: 47-year-old female comes in today with r ight posterior foot and ankle pain x 2 weeks. Patient reports that she has had persistent pain after stepping in a hole. Patient appears nontoxic. Patient has an antalgic gait. Patient can bear weight. Patient reports no chronic medical problems. Review of Systems General: Reports: 10 or more systems reviewed and unremarkable except in HPI and below Musc: Reports: joint pain PFSH ED PFSH: Medical History Mixed stress and urge urinary incontinence Follow-up at [facility] urology clinic, also chronic cystitis. Allergic rhinitis due to allergen CKD (chronic kidney disease), stage II Tinea corporis Gout Osteoarthritis involving multiple joints on both sides of body Depression Hyperlipidemia Pre-diabetes Asthma History of diabetes mellitus Morbid obesity with BMI of 40.0-44.9, adult Strain of right shoulder GERD (gastroesophageal reflux disease) Surgical History Right knee meniscal tear History of cholecystectomy History of tubal ligation H/O: Family History Mother CAD (coronary artery disease) Heart attack Grandmother CAD (coronary artery disease) Maternal grandmother Other Cancer Dementia Diabetes Hypertension Stroke Social History Smoking and tobacco/nicotine status: never used tobacco/nicotine Alcohol intake: never Substance/Drug Use: never Adopted: No Caregiver/support person: No Lives independently: Yes Current occupational status: unemployed Current gender identity: Female Physical Exam Const: COMMON NORMALS: alert HENMT: COMMON NORMALS: normocephalic HEAD & SCALP: normocephalic Neck/C-Spine: COMMON NORMALS: full ROM Resp: COMMON NORMALS: normal respiratory effort and clear to auscultation bilaterally AUSCULTATION: clear to auscultation bilaterally Cardio: COMMON NORMALS: regular rate and regular rhythm RATE: regular rate RHYTHM: regular rhythm GI: COMMON NORMALS: Soft to palpation and non-tender PALPATION: Yes Soft to palpation Back/Pelvis: COMMON NORMALS: thoracic and lumbar spine normal to inspection Extremity: RIGHT LOWER EXTREMITY: Yes foot & digits (Posterior tenderness.) Neuro: SENSORIUM/ORIENTATION: Yes alert Skin: COMMON NORMALS: turgor normal GENERAL SKIN EXAM: turgor normal Course Vital Signs: Vital signs: Vital Signs Temperature 98.2 F 09/28/23 15:45 Pulse Rate 80 09/28/23 15:45 Respiratory Rate 17 09/28/23 15:45 Blood Pressure 179/85 09/28/23 15:45 Pulse Oximetry 96 09/28/23 15:45 Oxygen Delivery Me thod Room Air 09/28/23 15:45 MDM - Extremity (Nontraumatic) Medical Decision Making 47-year-old female comes in today for complaints of pain and discomfort to the right lower extremity. Patient reports posterior foot and ankle pain. There is some mild swelling and ecchymosis. Achilles tendon is intact. Distal pulses and sensation are intact. Differential diagnosis includes sprain, fracture, tendinitis. X-ray was remarkable for osteoarthritis and possible fracture of the distal fibula. Radiology recommended CT. CT of the ankle rule out fracture but did note significant arthritis and chronic tendinopathy to the Achilles tendon. Patient will be maintained in a walking boot with recommendations for follow-up with podiatry for further evaluation and treatment. Patient reported understanding and agreed to plan. Lab Data Radiology Impressions Ankle X-Ray 09/28/23 16:04 IMPRESSION: 1. There are ill-defined lucencies overlapping the distal fibula and distal tibia across the tibiofibular articulation raising concern for the distal tibia and/or distal fibular fractures. CT scan recommended for further evaluation. 2. Chronic appearing 5 mm osseous density in the soft tissues distal to the medial malleolus may represent sequela of chronic trauma. Foot X-Ray 09/28/23 16:04 IMPRESSION: No acute findings.Non acute findings as described above. Ankle CT 09/28/23 17:22 IMPRESSION: 1. There is pseudoarthrosis across the distal tibiofibular articulation with marginal osteophytes and subchondral cystic changes across the opposing surfaces. No acute fracture seen. 2. Calcifications in the soft tissues distal to the medial malleolus likely representing sequela of chronic trauma. 3. Distal Achilles tendon is thickened with associated calcifications consistent with chronic Achilles tendon injury. 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, right ankle and foot Condition: Stable Prescriptions: No Action metronidazole 500 mg tablet 500 mg PO BID 7 Days Qty: 14 0RF azithromycin 500 mg tablet See Rx Instructions PO .COMPLEX Qty: 3 0RF Rx Instructions: For 500 mg dose pack: take 500 mg once daily for 3 days PO Naprosyn 500 mg tablet 500 mg PO BID PRN (Reason: pain) Qty: 20 0RF Discharge Orders: Discharge ED (Routine); Ordered 09/28/23 Ordered By: Noble Boswell Other Ambulatory Orders: DME: Miscellaneous (Order) Location: None Selected Ordered By: Noble Boswell Referrals: Jr Alfaro MD [Primary Care Provider] - Patient Instructions: Arthralgia (ED) Activity Restrictions/Additional Instructions: Wear walking boot until cleared by podiatry. May take the boot off at night but when you are ambulating he should be having the boot on. Use acetaminophen and ibuprofen to help with pain. Use ice packs for pain relief. Return to ER for new concerns. Thank you for choosing [facility] for your healthcare needs today. Please realize that you were seen in the emergency department and that we are providing you with an emergency medical screening exam and this may not be a complete and all exclusive of all testing and/or medical workup we may need to determine your element or severity of your illness. It is very important that you follow-up as instructed with your primary care provider or specialist for the additional evaluation and to discuss your medical treatment plan. You may return to the emergency department should you have concerns or if your condition changes or worsens in any way. Coding Level of Care Code ED Student Life Advisor for Deandre Shane
--- NOTE | 2023-09-28 16:04 | XRR_ITS ---
PROCEDURE INFORMATION: Exam: XR Right Foot Exam date and time: 09/28/2023 4:24 PM Age: 47 years old Clinical indication: Ankle and foot; Right; Patient HX: RT foot/ankle pain/swelling x 2 weeks after twisting injury TECHNIQUE: Imaging protocol: Radiologic exam of the right foot. Views: 3 or more views. COMPARISON: CR XR ankle RT min 3V* [id number] 09/28/2023 4:24 PM FINDINGS: Bones/joints: Enthesophytes are present off the os calcis at the Achilles insertion and plantar fascia origin. Multi-articular mild primary osteoarthritic changes including mild joint space narrowing, subchondral cystic/sclerotic changes, and small marginal osteophyte formations. Mild hallux valgus. Soft tissues: See Bones/joints finding. XR/XR foot RT min 3V* [id number] IMPRESSION: No acute findings.Non acute findings as described above.
--- NOTE | 2023-09-28 16:04 | XRR_ITS ---
PROCEDURE INFORMATION: Exam: XR Right Ankle Exam date and time: 09/28/2023 4:24 PM Age: 47 years old Clinical indication: Ankle and foot; Right; Patient HX: RT foot/ankle pain/swelling x 2 weeks after twisting injury TECHNIQUE: Imaging protocol: Radiologic exam of the right ankle. Views: 3 or more views. COMPARISON: CR (LOW EXM, ) 09/28/2023 4:24 PM FINDINGS: Bones/joints: Multi-articular minimal primary osteoarthritic changes mild including joint space narrowing, subchondral cystic/sclerotic changes, and small marginal osteophyte formations. Enthesophytes are present off the os calcis at the Achilles insertion and plantar fascia origin. There are ill-defined lucencies overlapping the distal fibula and distal tibia across the tibiofibular articulation raising concern for the distal tibia and/or distal fibular fractures. Chronic appearing 5 mm osseous density in the soft tissues distal to the medial malleolus may represent sequela of chronic trauma. Soft tissues: See Bones/joints finding. XR/XR ankle RT min 3V* [id number] IMPRESSION: 1. There are ill-defined lucencies overlapping the distal fibula and distal tibia across the tibiofibular articulation raising concern for the distal tibia and/or distal fibular fractures. CT scan recommended for further evaluation. 2. Chronic appearing 5 mm osseous density in the soft tissues distal to the medial malleolus may represent sequela of chronic trauma.
--- NOTE | 2023-09-28 17:22 | CTR_ITS ---
PROCEDURE INFORMATION: Exam: CT Right Lower Extremity Without Contrast, Ankle Exam date and time: 09/28/2023 5:44 PM Age: 47 years old Clinical indication: Injury or trauma; Fall; Blunt trauma; Ankle; Right; Additional info: RT ankle pain/swelling x 2 weeks post fall; Abnormal xray TECHNIQUE: Imaging protocol: CT of the right lower extremity without contrast was performed. Exam focused on the ankle. Radiation optimization: All CT scans at this facility use at least one of these dose optimization techniques: automated exposure control; mA and/or kV adjustment per patient size (includes targeted exams where dose is matched to clinical indication); or iterative reconstruction. COMPARISON: CR XR ankle RT min 3V* [id number] 09/28/2023 4:24 PM RADIATION DOSE METRICS: Total DLP (mGy-cm): 157.34 FINDINGS: Bones/joints: There is pseudoarthrosis across the distal tibiofibular articulation with marginal osteophytes and subchondral cystic changes across the opposing surfaces. No acute fracture seen. Multi-articular mild primary osteoarthritic changes including joint space narrowing, subchondral cystic/sclerotic changes, and marginal osteophyte formations. Enthesophytes are present off the os calcis at the Achilles insertion and plantar fascia origin. Soft tissues: There are benign-appearing soft tissue calcifications. Calcifications in the soft tissues distal to the medial malleolus likely representing sequela of chronic trauma. Distal Achilles tendon is thickened with associated calcifications consistent with chronic Achilles tendon injury. CT/CT ankle RT wo con* [id number] IMPRESSION: 1. There is pseudoarthrosis across the distal tibiofibular articulation with marginal osteophytes and subchondral cystic changes across the opposing surfaces. No acute fracture seen. 2. Calcifications in the soft tissues distal to the medial malleolus likely representing sequela of chronic trauma. 3. Distal Achilles tendon is thickened with associated calcifications consistent with chronic Achilles tendon injury.
[2023-09-28 18:36] VITALS: BP 164/84; PULSE 79; RESP 16; TEMP 36.8; O2SAT 98
--- NOTE | 2023-10-01 07:55 | DCPLANNER ---
messaged podiatry for er f/u
== END 2023-09-28 18:35 | disposition home or self-care (01) ==
PROVIDERS: Emergency Provider Nurse Practitioner Family; PCP Family Medicine Adult Medicine
DX: S82.891A Other fracture of right lower leg, initial encounter for closed fracture (principal); M19.171 Post-traumatic osteoarthritis, right ankle and foot; E11.22 Type 2 diabetes mellitus with diabetic chronic kidney disease; N18.2 Chronic kidney disease, stage 2 (mild); E78.5 Hyperlipidemia, unspecified; W18.42XA Slipping, tripping and stumbling without falling due to stepping into hole or opening, initial encounter
CPT/HCPCS: 73610; 73630; 73700; 99284

== ENCOUNTER 2023-10-13 20:50 | Emergency (ER) | payer MEDICAID, SELFPAY ==
[2023-10-13 20:52] VITALS: BP 152/95; PULSE 87; RESP 16; TEMP 36.5; O2SAT 95
--- NOTE | 2023-10-13 21:12 | ED_ITS ---
HPI - General Adult 2 General: Chief complaint: Burn/Smoke Inhalation Stated complaint: dehydrated and sunburned Time Seen by Provider: 10/13/23 21:04 Source: patient Mode of arrival: ambulatory Limitations: no limitations History of Present Illness: Patient is a 47-year-old female presents to the ED today with a complaint of a sunburn to her shoulders, dorsums of her hands, and bilateral anterior thighs after being out in the sun/at the pool for approximately 4 hours yesterday. She has been applying aloe vera as well as an aerosol lidocaine without relief. She also has a complaint of dark urine and feels she is dehydrated. She feels like her urine has a strong ammonia smell . She is not having any dysuria. No flank pain. No vomiting. Onset (ago): day(s) Location: upper extremity and lower extremity Severity: mild Pain Consistency: constant Relieving factors: none Exacerbating factors: none Associated symptoms: Deny chest pain, dyspnea, headache(s), malaise, nausea, rash or vomiting Treatments prior to arrival: other (topical therapies ) Review of Systems 2 Const: Denies: fever(s), chills, body aches, fatigue or malaise Card: Denies: chest pain Resp: Denies: dyspnea GI: Denies: abdominal pain, nausea, vomiting or change in bowel habits : Reports: other (dark odorous urine); Denies: flank pain, difficulty voiding, dysuria, urinary frequency, urinary urgency or urinary hesitancy Musc: Denies: neck pain, back pain, extremity pain, extremity swelling, joint pain or joint swelling Skin/Breast: Reports: erythema (sunburn); Denies: rash Neuro: Denies: headache(s), numbness in extremities, weakness in extremities, sensory changes or dizziness PFSH ED 2 PFSH: Medical History Mixed stress and urge urinary incontinence Follow-up at [facility] urology clinic, also chronic cystitis. Allergic rhinitis due to allergen CKD (chronic kidney disease), stage II Tinea corporis Gout Osteoarthritis involving multiple joints on both sides of body Depression Hyperlipidemia Pre-diabetes Asthma History of diabetes mellitus Morbid obesity with BMI of 40.0-44.9, adult Strain of right shoulder GERD (gastroesophageal reflux disease) Surgical History Right knee meniscal tear History of cholecystectomy History of tubal ligation H/O: Family History Mother CAD (coronary artery disease) Heart attack Grandmother CAD (coronary artery disease) Maternal grandmother Other Cancer Dementia Diabetes Hypertension Stroke Social History Smoking and tobacco/nicotine status: tobacco/nicotine user, details unknown Alcohol intake: never Substance/Drug Use: never Adopted: No Caregiver/support person: No Lives independently: Yes Current occupational status: unemployed Current gender identity: Female Physical Exam 2 Const: COMMON NORMALS: no acute distress, patient oriented x3, no limitations and alert GENERAL APPEARANCE: cooperative NUTRITIONAL APPEARANCE: obese morbidly obese (BMI is 41.3) ORIENTATION/CONSCIOUSNESS: Yes awake, Yes oriented to person, Yes oriented to place and Yes oriented to time Eye: COMMON NORMALS: no scleral icterus Resp: COMMON NORMALS: normal respiratory effort Cardio: COMMON NORMALS: regular rate and regular rhythm RATE: regular rate RHYTHM: regular rhythm GI: COMMON NORMALS: Normal to inspection, nondistended, normoactive bowel sounds present, Soft to palpation, non-tender, No hepatosplenomegaly present and no masses PALPATION: Yes Soft to palpation and Yes No hepatosplenomegaly present : COMMON NORMALS: Yes no CVA tenderness BLADDER/KIDNEY EXAM: Yes no CVA tenderness Back/Pelvis: COMMON NORMALS: no CVA tenderness Extremity: GENERAL: Yes normal exam except as noted Neuro: COMMON NORMALS: patient oriented x3 SENSORIUM/ORIENTATION: Yes alert, Yes oriented to person, Yes oriented to place and Yes oriented to time Skin: NARRATIVE SKIN EXAM: patient has minor first degree sunburns (no blistering) to bilateral shoulders, dorsums of hands, and anterior thighs Course 2 Vital Signs: Vital signs: Vital Signs Temperature 97.7 F 10/13/23 20:52 Pulse Rate 87 10/13/23 20:52 Respiratory Rate 16 10/13/23 20:52 Blood Pressure 152/95 10/13/23 20:52 Pulse Oximetry 95 10/13/23 20:52 [facility] - General Adult Medical Decision Making Patient here for evaluation of a sunburn and dark/odorous urine. Vitals stable. She appears in NAD. Sunburn is minor and should heal well with conservative therapy. Patient's blood work showing minor elevation of creatinine at 1.2. It has been this high previously and she has been told she has CKD. Will give a liter of fluids here. She does have elevations of her LFTs with her tbili at 1.5 and AST/ALT 91/66 with an alk phos of 174. She has no abdominal pain, vomiting, fevers, or changes in stool. She is status post cholecystectomy approximately 8- 9 years ago. Not really high enough that I would suspect an acute hepatitis. Will add tick panel-has had some tick bites. I do not feel she needs to undergo emergent imaging at this time. Discussed with Dr. Lester who agrees. Would recommend PCP recheck this in 1-2 weeks and return precautions given. UA collected here with dark appearance. It does have blood, positive nitrates, 1+ leuks, 11-20 WBCs, and 4+ bacteria. There is some degree of contamination. Will go ahead and place on antibiotics. I would like her to see PCP next week for re- evaluation. Medical Records I reviewed the patient's medical records. Lab Data I reviewed the patient's lab results. 10/13/23 21:37 10/13/23 21:37 Laboratory Results WBC 8.06 10^3/uL (3.29-11.43) 10/13/23 21:37 RBC 4.86 10^6/uL (3.85-5.65) 10/13/23 21:37 Hgb 14.70 g/dL (11.27-16.99) 10/13/23 21:37 Hct 45.4 % (36-47) 10/13/23 21:37 MCV 93.4 fl (85-98) 10/13/23 21:37 MCH 30.2 pg (27-33) 10/13/23 21: MCHC 32.4 g/dL (30-55) 10/13/23 21:37 RDW 13.2 % (12.1-15.1) 10/13/23 21:37 Plt Count 364 10^3/cmm (157-399) 10/13/23 21:37 MPV 10.7 fL (7.4-10.4) H 10/13/23 21:37 Neut % (Auto) 56.5 % 10/13/23 21:37 Lymph % (Auto) 33.4 % 10/13/23 21:37 [place] % (Auto) 6.8 % 10/13/23 21:37 Eos % (Auto) 2.5 % 10/13/23 21:37 Baso % (Auto) 0.6 % 10/13/23 21:37 Neut # (Auto) 4.55 10^3/uL (1.8-7.7) 10/13/23 21:37 Lymph # (Auto) 2.7 10^3/uL (0.8-4.8) 10/13/23 21:37 [place] # (Auto) 0.6 10^3/uL (0.2-0.9) 10/13/23 21:37 Eos # (Auto) 0.2 10^3/uL (0.0-0.8) 10/13/23 21:37 Baso # (Auto) 0.1 10^3/uL (0.0-0.1) 10/13/23 21:37 Nucleated RBC % (auto) 0 % 10/13/23 21:37 Nucleated RBCs # 0.0 /100WBC 10/13/23 21:37 Sodium 140 mmol/L (136-145) 10/13/23 21:37 Potassium 3.6 mmol/L (3.5-5.1) 10/13/23 21:37 Chloride 104 mmol/L (98-107) 10/13/23 21:37 Carbon Dioxide 22 mmol/L (22-29) 10/13/23 21:37 Anion Gap 17.6 (5-19) 10/13/23 21:37 BUN 11 mg/dL (6-20) 10/13/23 21:37 Creatinine 1.2 mg/dL (0.5-0.9) H 10/13/23 21:37 GFR Calculation 47.9 mL/min (90-130) L 10/13/23 21:37 Glucose 139 mg/dL (65-115) H 10/13/23 21:37 Calculated Osmolality 292 mOsm/kg (285-295) 10/13/23 21:37 Calcium 9.2 mg/dL (8.5-10.5) 10/13/23 21:37 Total Bilirubin 1.5 mg/dL (0.15-1.2) H 10/13/23 21:37 AST 91 U/L (0-32) H 10/13/23 21:37 ALT 66 U/L (0-33) H 10/13/23 21:37 Alkaline Phosphatase 174 U/L (35-105) H 10/13/23 21:37 Total Protein 7.3 g/dL (6.6-8.7) 10/13/23 21:37 Albumin 4.0 g/dL (3.5-5.2) 10/13/23 21:37 Globulin 3.3 g/dL (1.3-4.6) 10/13/23 21:37 Urine Color Dark yellow (Yellow) A 10/13/23 21:20 Urine Appearance Cloudy (CLEAR) A 10/13/23 21:20 Urine pH 5.5 (5-7) 10/13/23 21:20 Ur Specific [place] 1.028 (1.005-1.030) 10/13/23 21:20 Urine Protein Trace (Negative) A 10/13/23 21:20 Urine Glucose (UA) Negative (Normal) 10/13/23 21:20 Urine Ketones Trace (Negative) 10/13/23 21:20 Urine Blood 2+ (Negative) A 10/13/23 21:20 Urine Nitrate Positive (Negative) A 10/13/23 21:20 Urine Bilirubin Negative (Negative) 10/13/23 21:20 Urine Urobilinogen 1.0 mg/dL (Negative) 10/13/23 21:20 Ur Leukocyte Esterase 1+ (Negative) A 10/13/23 21:20 Urine RBC 3-5 /hpf (0-2) 10/13/23 21:20 Urine WBC 11-20 /hpf (0-5) H 10/13/23 21:20 Ur Squamous Epith Cells 11-20 /hpf (0-5) 10/13/23 21:20 Amorphous Sediment Not Reportable 10/13/23 21:20 Urine Bacteria 4+ /hpf (NONE) H 10/13/23 21:20 Hyaline Casts 29.78 /lpf 10/13/23 21:20 No radiology studies performed this visit Discharge Plan Discharge Patient Disposition: Home Clinical Impression: Sunburn, Dehydration, Transaminitis, Acute cystitis Condition: Stable Prescriptions: New Macrobid 100 mg capsule 100 mg PO BID 7 Days Qty: 14 0RF Rx Instructions: must administer with a meal/food No Action metronidazole 500 mg tablet 500 mg PO BID 7 Days Qty: 14 0RF azithromycin 500 mg tablet See Rx Instructions PO .COMPLEX Qty: 3 0RF Rx Instructions: For 500 mg dose pack: take 500 mg once daily for 3 days PO Naprosyn 500 mg tablet 500 mg PO BID PRN (Reason: pain) Qty: 20 0RF Discharge Orders: Discharge ED (Routine); Ordered 10/13/23 Ordered By: Lyudmila Rodrigez Referrals: Jr Alfaro MD [Primary Care Provider] - Patient Instructions: Dehydration (DC), Urinary Tract Infection in Women (DC), Sunburn (ED), Sunburn - Adult Activity Restrictions/Additional Instructions: You need to continue to push fluids as much as possible over the next 2 to 3 days. Fill your antibiotics and start them immediately for treatment of a probable UTI. Prescription has been sent to [facility] in [place]. You need to return the emergency department for onset of fevers, repeated episodes of vomiting, severe abdominal pain, or flank pain. We discussed continuing conservative therapy for treatment of your sunburn. As we discussed, your liver enzymes were abnormally elevated today. These need to be repeated in 1 to 2 weeks through primary care. You need to immediately return to the emergency department for any yellowing to your skin or eyes, fevers, abdominal pain, repetitive episodes of vomiting, light or white-colored stools, generally feeling worse or unwell, or any other concerns she may have. Coding Level of Care Code ED Commercial Housekeeper for Deandre Shane
[2023-10-13 21:30] VITALS: BP 158/93; PULSE 75; O2SAT 96
[2023-10-13 21:40] LABS: Charge for UA Resulting for Rev
[2023-10-13 21:43] LABS: Bilirubin Urine Negative (Negative); Blood Urine 2+ (Negative); Glucose Urine UA Negative (Normal); Ketones Urine Trace (Negative); Leukocyte Esterase Urine 1+ (Negative); Nitrate Urine Positive (Negative); Protein Urine Trace (Negative); Specific Gravity, Urine 1.028 (1.005-1.030); Urine Appearance Cloudy (CLEAR); Urine Color Dark Yellow (Yellow); pH Urine 5.5 (5-7)
[2023-10-13 21:46] LABS: Bacteria Urine 4+ /hpf; Hyaline Casts Urine 29.78 /lpf
[2023-10-13 21:47] LABS: Add Urine Culture? No
[2023-10-13 21:50] LABS: Basophils # 0.1 10^3/uL (0.0-0.1); Basophils % 0.6 %; Eosinophils # 0.2 10^3/uL (0.0-0.8); Eosinophils % 2.5 %; Hematocrit 45.4 % (36-47); Lymphocytes # 2.7 10^3/uL (0.8-4.8); Lymphocytes % 33.4 %; Mean Corpuscular HGB Conc 32.4 g/dL (30-55); Mean Corpuscular Hemoglobin 30.2 pg (27-33); Mean Corpuscular Volume 93.4 fl (85-98); Mean Platelet Volume 10.7 fL (7.4-10.4); Monocytes # 0.6 10^3/uL (0.2-0.9); Monocytes % 6.8 %; Neutrophils # 4.55 10^3/uL (1.8-7.7); Neutrophils % 56.5 %; Nucleated Red Blood Cells % 0 %; Platelet Count 364 10^3/cmm (157-399); Red Blood Count 4.86 10^6/uL (3.85-5.65); Red Cell Distribution Width 13.2 % (12.1-15.1); White Blood Count 8.06 10^3/uL (3.29-11.43)
[2023-10-13 22:12] LABS: Alanine Aminotransferase 66 U/L (0-33); Alkaline Phosphatase 174 U/L (35-105); Anion Gap 17.6 (5-19); Aspartate Amino Transferase 91 U/L (0-32); Blood Urea Nitrogen 11 mg/dL (6-20); Calcium 9.2 mg/dL (8.5-10.5); Carbon Dioxide 22 mmol/L (22-29); Chloride 104 mmol/L (98-107); Creatinine Clr Calc Pharmacy 66.7187; Globulin 3.3 g/dL (1.3-4.6); Glomerular Filtration Rate 47.9 mL/min (90-130); Glucose 139 mg/dL (65-115); Osmolality Calculated 292 mOsm/kg (285-295); Potassium 3.6 mmol/L (3.5-5.1); Sodium 140 mmol/L (136-145); Total Bilirubin 1.5 mg/dL (0.15-1.2); Total Protein 7.3 g/dL (6.6-8.7)
[2023-10-13 22:30] VITALS: BP 155/100; PULSE 75; O2SAT 97
[2023-10-13] MEDS: sodium chloride 0.9% 1,000 ML 999 ML IV (22:42)
[2023-10-14] VITALS: BP 130/95; PULSE 67; O2SAT 97
[2023-10-15 13:59] LABS: Lyme AB Screen <0.90 index
[2023-10-20 17:30] LABS: E. Chaffeensis AB IGG <1:64; E. Chaffeensis AB IGM <1:20
[2023-10-21 16:09] LABS: RMSF IGG NOT DETECTED; RMSF IGM NOT DETECTED
== END 2023-10-14 00:38 | disposition home or self-care (01) ==
PROVIDERS: Emergency Provider Physician Assistant; PCP Family Medicine Adult Medicine
DX: L55.0 Sunburn of first degree (principal); E86.0 Dehydration; R74.01 Elevation of levels of liver transaminase levels; N30.00 Acute cystitis without hematuria
CPT/HCPCS: 36415; 80053; 81003; 81015; 85025; 86618; 86666; 86757; 96360; 96361; 99284; J7030

== ENCOUNTER 2023-12-16 14:29 | Emergency (ER) | payer MEDICAID, SELFPAY ==
[2023-12-16 15:24] VITALS: BP 144/92; PULSE 98; RESP 16; TEMP 37.4; O2SAT 98; BMI 41.1
[2023-12-16 15:27] VITALS: PULSE 100; RESP 16; TEMP 37.4; O2SAT 98
--- NOTE | 2023-12-16 15:43 | XRR_ITS ---
PROCEDURE INFORMATION: Exam: XR Chest Exam date and time: 12/16/2023 3:48 PM Age: 48 years old Clinical indication: Patient HX: Woke up this am with sore throat and cough. Reports she is having headaches for 3 or 4 days. ; Additional info: Cough/congestion/chills/fatigue TECHNIQUE: Imaging protocol: Radiologic exam of the chest. Views: 1 view. COMPARISON: CR XR chest 1V portable [id number] 05/15/2022 9:45 PM FINDINGS: Lungs: Small calcified granuloma lateral right midlung and a few small calcified granulomas hilar region, unchanged with prior exam. Findings indicate mild benign healed granulomatous disease. No infiltrate or consolidation. Pleural spaces: No pleural effusion or pneumothorax. Heart/Mediastinum: Unremarkable. No cardiomegaly. Bones/joints: Visualized osseous structures show no acute abnormality. Other findings: No significant change with prior exam. XR/XR chest 1V portable [id number] IMPRESSION: No acute cardiopulmonary abnormality.
--- NOTE | 2023-12-16 15:48 | ED_ITS ---
HPI - URI/Sore Throat General: Chief Complaint: Upper Respiratory Infection Stated Complaint: sore throat, fatigue, congestion Time Seen by Provider: 12/16/23 15:33 Source: patient Mode of arrival: ambulatory Limitations: no limitations History of Present Illness: Patient is a 48-year-old female presents to ED today with a complaint of sore throat, nasal congestion, runny nose, headaches, fatigue, chills, chest congestion, and a cough. Symptoms were present over the past 2 to 3 days. She has not had any reported fevers. Upon arrival to the emergency department she appears in absolutely no acute distress with stable vital signs. She did state she had positive strep exposure several weeks ago. MD elicited complaint: cough, sore throat, rhinorrhea and nasal congestion Onset (ago): day(s) Consistency: constant Severity: mild Description of mucous: clear Able to tolerate fluids by mouth: Yes Exacerbating factors: nothing Relieving factors: nothing Associated symptoms: Reports chills, congestion, cough, headache(s), myalgias and nasal congestion; Deny abdominal pain, chest pain, diarrhea, ear or mastoid pain, fever(s), nausea or vomiting Treatments prior to arrival: none Related Data Previous Rx's Medication Instructions Recorded metronidazole 500 mg tablet 500 mg PO BID 7 days #14 tabs 05/14/23 azithromycin 500 mg tablet See Rx Instructions PO .COMPLEX #3 05/21/23 tabs naproxen 500 mg tablet (Naprosyn) 500 mg PO BID PRN pain #20 tabs 06/18/23 Allergies Allergy/AdvReac Type Severity Reaction Status Date / Time latex Allergy Intermediate ALGY-Rash Verified 11/11/23 15:41 lisinopril Allergy Mild ALGY-Difficulty Verified 11/11/23 15:41 Swallowing Review of Systems Const: Reports: chills, body aches and fatigue; Denies: fever(s) Eyes: Denies: change in vision, blurry vision, photophobia, floaters or seeing flashes ENMT: Reports: throat pain, odynophagia, nasal discharge and nasal congestion; Denies: uvular edema, enlarged tonsils or ear or mastoid pain Card: Denies: chest pain Resp: Reports: productive cough and chest congestion; Denies: dyspnea, wheezing or hemoptysis GI: Denies: abdominal pain, nausea, vomiting or diarrhea : Denies: flank pain, difficulty voiding, dysuria, urinary frequency, urinary urgency or urinary hesitancy Musc: Denies: neck pain, back pain, extremity pain, joint pain or joint swelling Skin/Breast: Denies: rash Neuro: Reports: headache(s); Denies: numbness in extremities, weakness in extremities, sensory changes or dizziness PFSH ED PFSH: Medical History Mixed stress and urge urinary incontinence Follow-up at [facility] urology clinic, also chronic cystitis. Allergic rhinitis due to allergen CKD (chronic kidney disease), stage II Tinea corporis Gout Osteoarthritis involving multiple joints on both sides of body Depression Hyperlipidemia Pre-diabetes Asthma History of diabetes mellitus Morbid obesity with BMI of 40.0-44.9, adult Strain of right shoulder GERD (gastroesophageal reflux disease) Surgical History Right knee meniscal tear History of cholecystectomy History of tubal ligation H/O: Family History Mother CAD (coronary artery disease) Heart attack Grandmother CAD (coronary artery disease) Maternal grandmother Other Cancer Dementia Diabetes Hypertension Stroke Social History Smoking and tobacco/nicotine status: tobacco/nicotine user, details unknown Alcohol intake: never Substance/Drug Use: never Adopted: No Caregiver/support person: No Lives independently: Yes Current occupational status: unemployed Current gender identity: Female Physical Exam Const: COMMON NORMALS: no acute distress, patient oriented x3, no limitations, alert and well nourished GENERAL APPEARANCE: cooperative ORIENTATION/CONSCIOUSNESS: Yes awake, Yes oriented to person, Yes oriented to place and Yes oriented to time HENMT: COMMON NORMALS: normocephalic, atraumatic and Normal external nose present HEAD & SCALP: normal to inspection, normocephalic and atraumatic FACE & SINUS: sinus tenderness NOSE: Normal external nose present MOUTH: Normal oral and palatal mucosa present and lip normal THROAT: posterior oropharynx normal and tonsils normal; no uvular edema Eye: GENERAL EYE: appearance normal, both eyes and all related structures Neck/C-Spine: COMMON NORMALS: no lymphadenopathy and no meningeal signs Resp: COMMON NORMALS: normal respiratory effort and clear to auscultation bilaterally AUSCULTATION: clear to auscultation bilaterally Cardio: COMMON NORMALS: regular rate and regular rhythm RATE: regular rate RHYTHM: regular rhythm Extremity: GENERAL: Yes normal exam except as noted Neuro: MEGA COMA SCALE: document GCS findings Mega coma scale eye opening: Spontaneous [place] coma scale verbal response: Orientated Mega coma scale motor response: Obey commands Mega coma scale total score: 15 COMMON NORMALS: patient oriented x3, moves all extremities, no focal motor deficits, no sensory deficits noted and gait normal SENSORIUM/ORIENTATION: Yes alert, Yes oriented to person, Yes oriented to place and Yes oriented to time MENINGEAL SIGNS: Yes no meningeal signs Skin: COMMON NORMALS: no rashes or lesions noted GENERAL SKIN EXAM: no rashes or lesions noted Course Vital Signs: Vital signs: Vital Signs Temperature 99.4 F 12/16/23 15:27 Pulse Rate 100 12/16/23 15:27 Respiratory Rate 16 12/16/23 15:27 Blood Pressure 144/92 12/16/23 15:24 Pulse Oximetry 98 12/16/23 15:27 Oxygen Delivery Me thod Room Air 12/16/23 15:27 MDM - URI/Sore Throat Medical Decision Making Patient appears in no acute distress. Vital signs are stable. CXR is unremarkable. COVID/flu/RSV swab obtained. Will contact patient for positive results. Conservative home remedies as well as [id number] therapies discussed. Return to ED precautions given. Differential Diagnosis Likely upper respiratory infection, sinusitis, viral infection, bronchitis and pharyngitis Medical Records I reviewed the patient's medical records. Lab Data I reviewed the patient's lab results. Laboratory Results Group A Strep Rapid Negative (Negative) 12/16/23 15:36 All radiology interpretation(s) finalized by discharge Discharge Plan Discharge Patient Disposition: Home Clinical Impression: Acute rhinosinusitis Condition: Stable Prescriptions: No Action metronidazole 500 mg tablet 500 mg PO BID 7 Days Qty: 14 0RF azithromycin 500 mg tablet See Rx Instructions PO .COMPLEX Qty: 3 0RF Rx Instructions: For 500 mg dose pack: take 500 mg once daily for 3 days PO Naprosyn 500 mg tablet 500 mg PO BID PRN (Reason: pain) Qty: 20 0RF Discharge Orders: Discharge ED (Routine); Ordered 12/16/23 Ordered By: Lyudmila oRdrigez Referrals: Jr Alfaro MD [Primary Care Provider] - Patient Instructions: Common Cold - Adult, Upper Respiratory Infection (DC), Rhinosinusitis (DC), Cold Symptoms (ED) Activity Restrictions/Additional Instructions: We discussed, your chest x-ray was unremarkable. Strep is negative. Still awaiting result of your COVID/flu/RSV. IF these come back positive we will notify you by phone. We discussed several [id number] and conservative therapies to treat your symptoms. Ultimately time will be of most benefit. Coding Level of Care Code ED Commanding Officer [employer] Division for Deandre Shane
[2023-12-16 16:02] LABS: Rapid Strep A Test Negative (Negative)
[2023-12-16 16:34] VITALS: BP 145/89; PULSE 86; O2SAT 98
[2023-12-16 17:23] LABS: Covid PCR NEGATIVE (Negative); Influenza A NEGATIVE (Negative); Influenza B NEGATIVE (Negative); Respiratory Syncytial Virus Ce NEGATIVE (Negative)
== END 2023-12-16 16:38 | disposition home or self-care (01) ==
PROVIDERS: Family Medicine; Emergency Provider Physician Assistant; PCP Family Medicine Adult Medicine
DX: J01.90 Acute sinusitis, unspecified (principal); Z72.0 Tobacco use; E11.22 Type 2 diabetes mellitus with diabetic chronic kidney disease; N18.1 Chronic kidney disease, stage 1; E78.5 Hyperlipidemia, unspecified
CPT/HCPCS: 0241U; 71045; 87081; 87880; 99284

== ENCOUNTER 2024-01-09 17:32 | Emergency (ER) | payer MEDICAID, SELFPAY ==
[2024-01-09 17:46] VITALS: BP 151/86; PULSE 80; RESP 18; TEMP 36.9; O2SAT 97
--- NOTE | 2024-01-09 17:54 | XRR_ITS ---
PROCEDURE INFORMATION: Exam: XR Left Foot Exam date and time: 01/09/2024 6:41 PM Age: 48 years old Clinical indication: Foot; Left; Patient HX: Patient states chronic pain, no known injury TECHNIQUE: Imaging protocol: Radiologic exam of the left foot. Views: 3 or more views. COMPARISON: CR XR foot LT min 3V* [id number] 06/18/2023 3:45 PM FINDINGS: Bones/joints: [id number] degenerative change. Moderate hallux valgus. [id number] posterior calcaneal spur and tiny plantar calcaneal spur. Findings are without significant change from prior exam 06/18/2023. No fracture or dislocation is seen. Soft tissues: Soft tissue swelling suggested on the lateral view. XR/XR foot LT min 3V* [id number] IMPRESSION: Dsut-pz-bmcenxgy degenerative change including moderate hallux valgus and calcaneal spur formation, without significant change with prior exam. No acute fracture or dislocation. Lateral view suggests soft tissue swelling.
[2024-01-09 20:43] VITALS: RESP 18; O2SAT 97
[2024-01-09] MEDS: oxyCODONE-APAP 5-325 mg Tablet 2 TAB PO (20:43)
[2024-01-09] MEDS: colchicine 0.6 mg Tablet PO (20:43)
--- NOTE | 2024-01-09 21:07 | ED_ITS ---
HPI - Extremity Problem 2 General: Chief complaint: Extremity Injury, Lower Stated complaint: lt foot swollen Time Seen by Provider: 01/09/24 20:19 History of Present Illness: 48 year old female with left great toe M TP pain, warmth, redness and swelling. She has increased pain with trying to weight bare. She has had pain on and off for several days, made worse by trick or treating last night. She tells me she has a history of gout, but has not had gout in quite a long time, and does not know if this is gout or not. Related Data Previous Rx's Medication Instructions Recorded metronidazole 500 mg tablet 500 mg PO BID 7 days #14 tabs 05/14/23 naproxen 500 mg tablet (Naprosyn) 500 mg PO BID PRN pain #20 tabs 06/18/23 colchicine 0.6 mg tablet 0.6 mg PO BID #20 tabs 01/09/24 Allergies Allergy/AdvReac Type Severity Reaction Status Date / Time latex Allergy Intermediate ALGY-Rash Verified 12/23/23 15:41 lisinopril Allergy Mild ALGY-Difficulty Verified 12/23/23 15:41 Swallowing PFSH ED 2 PFSH: Medical History Mixed stress and urge urinary incontinence Follow-up at [facility] urology clinic, also chronic cystitis. Allergic rhinitis due to allergen CKD (chronic kidney disease), stage II Tinea corporis Gout Osteoarthritis involving multiple joints on both sides of body Depression Hyperlipidemia Pre-diabetes Asthma History of diabetes mellitus Morbid obesity with BMI of 40.0-44.9, adult Strain of right shoulder GERD (gastroesophageal reflux disease) Surgical History Right knee meniscal tear History of cholecystectomy History of tubal ligation H/O: Family History Mother CAD (coronary artery disease) Heart attack Grandmother CAD (coronary artery disease) Maternal grandmother Other Cancer Dementia Diabetes Hypertension Stroke Social History Smoking and tobacco/nicotine status: tobacco/nicotine user, details unknown Alcohol intake: never Substance/Drug Use: never Adopted: No Caregiver/support person: No Lives independently: Yes Current occupational status: unemployed Current gender identity: Female Physical Exam 2 Const: COMMON NORMALS: no acute distress GENERAL APPEARANCE: cooperative; not ill appearing and not frail appearing Eye: COMMON NORMALS: Equal, round and reactive pupils present and EOMs intact bilaterally PUPIL: Yes Equal, round and reactive pupils present Neck/C-Spine: GENERAL: Yes trachea midline Chest: CHEST: Yes Symmetrical chest wall rise Resp: COMMON NORMALS: normal respiratory effort, No retractions and No use of accessory muscles Cardio: COMMON NORMALS: regular rate and regular rhythm RATE: regular rate RHYTHM: regular rhythm Extremity: NARRATIVE EXTREMITY EXAM: Examination of the left foot reveals redness, warmth, and swelling over the left great toe MTP. There is tenderness to palpation. There is hallux valgus deformity. Mild tenderness along her EHL tendon distribution of the anterior leg. No redness or Cellulitis in this area. No calf tenderness. Neuro: MEGA COMA SCALE: document GCS findings Cypress coma scale eye opening: Spontaneous Cypress coma scale verbal response: Orientated Mega coma scale motor response: Obey commands Cypress coma scale total score: 15 S ENSORY EXAM: Yes extremities (intact) Psych: COMMON NORMALS: speech normal SPEECH: Yes normal speech Course 2 Vital Signs: Vital signs: Vital Signs Temperature 98.4 F 01/09/24 17:46 Pulse Rate 76 01/09/24 21:10 Respiratory Rate 16 01/09/24 21:10 Blood Pressure 146/82 01/09/24 21:10 Pulse Oximetry 96 01/09/24 21:10 Oxygen Delivery Me thod Room Air 01/09/24 17:46 MDM - Extremity (Nontraumatic) Medical Decision Making This patient was treated clinically for gout. X-ray does reveal hallex valgus deformity with degenerative change of the MTP. With redness and warmth, and a history of gout, classic flare symptoms. She'll be given colchicine. Laboratory is drawn, and later reveals a creatinine of 1.1, CRP of 40, ESR of 18 consistent with gout. Her uric acid is 9.8, also consistent with gout. Outpatient follow up. Lab Data 01/09/24 20:56 Radiology Impressions Foot X-Ray 01/09/24 17:54 IMPRESSION: [id number] degenerative change including moderate hallux valgus and calcaneal spur formation, without significant change with prior exam. No acute fracture or dislocation. Lateral view suggests soft tissue swelling. Laboratory Results ESR 18 mm/hr (0-15) H 01/09/24 20:56 Sodium 136 mmol/L (136-145) 01/09/24 20:56 Potassium 4.0 mmol/L (3.5-5.1) 01/09/24 20:56 Chloride 102 mmol/L (98-107) 01/09/24 20:56 Carbon Dioxide 24 mmol/L (22-29) 01/09/24 20:56 Anion Gap 14.0 (5-19) 01/09/24 20:56 BUN 12 mg/dL (6-20) 01/09/24 20:56 Creatinine 1.1 mg/dL (0.5-0.9) H 01/09/24 20:56 GFR Calculation 52.8 mL/min (90-130) L 01/09/24 20:56 Glucose 93 mg/dL (65-115) 01/09/24 20:56 Calculated Osmolality 281 mOsm/kg (285-295) L 01/09/24 20:56 Uric Acid 9.8 mg/dL (2.4-5.7) H 01/09/24 20:56 Calcium 8.7 mg/dL (8.5-10.5) 01/09/24 20:56 C-Reactive Protein 39.6 mg/L (0.0-4.9) H 01/09/24 20:56 All radiology interpretation(s) finalized by discharge Discharge Plan Discharge Patient Disposition: Home Clinical Impression: Gouty arthritis of left great toe, Hallux valgus of left foot Condition: Stable Prescriptions: New colchicine 0.6 mg tablet 0.6 mg PO BID Qty: 20 0RF No Action metronidazole 500 mg tablet 500 mg PO BID 7 Days Qty: 14 0RF Naprosyn 500 mg tablet 500 mg PO BID PRN (Reason: pain) Qty: 20 0RF Discharge Orders: Discharge ED (Routine); Ordered 01/09/24 Ordered By: Albino Melgoza Referrals: Jr Alfaro MD [Primary Care Provider] - 1-3 days Edy Grant DPM [Physician] - 4-7 days Patient Instructions: Bunion (ED), Gout (ED), Opioid Safety, Pain Management Activity Restrictions/Additional Instructions: Take the prescribed medication 4 times tomorrow every 4 hours while awake, then 3 times the next day every 8 hours, then twice daily following until your symptoms resolve. Return for fever, worsening pain, redness, swelling despite treatment. You may follow-up with your doctor next week, or foot and ankle surgeries information has been provided for you to follow-up with as well. You can call on Friday. Ice and elevate is much as possible, particularly for the next 48 hours. Coding Level of Care Code ED Dry Wall Finisher for Deandre Shane
[2024-01-09 21:10] VITALS: BP 146/82; PULSE 76; RESP 16; O2SAT 96
[2024-01-09 21:22] LABS: Blood Urea Nitrogen 12 mg/dL (6-20); C Reactive Protein 39.6 mg/L (0.0-4.9); Calcium 8.7 mg/dL (8.5-10.5); Carbon Dioxide 24 mmol/L (22-29); Chloride 102 mmol/L (98-107); Creatinine Clr Calc Pharmacy 71.9929; Erythrocyte Sedimentation Rate 18 mm/hr (0-15); Glomerular Filtration Rate 52.8 mL/min (90-130); Glucose 93 mg/dL (65-115); Osmolality Calculated 281 mOsm/kg (285-295); Sodium 136 mmol/L (136-145); Uric Acid 9.8 mg/dL (2.4-5.7)
== END 2024-01-09 21:04 | disposition home or self-care (01) ==
PROVIDERS: Emergency Provider Emergency Medicine; PCP Family Medicine Adult Medicine
DX: M10.072 Idiopathic gout, left ankle and foot (principal); M20.12 Hallux valgus (acquired), left foot; Z72.0 Tobacco use; N18.2 Chronic kidney disease, stage 2 (mild)
CPT/HCPCS: 36415; 73630; 80048; 84550; 85651; 86140; 99284

== ENCOUNTER → 2024-04-12 16:56 | Outpatient (BNVA) | payer MEDICAID, SELFPAY | PROVIDERS: PCP Family Medicine Adult Medicine; Visit Provider Registered Nurse Neonatal Intensive Care | DX: R50.9 Fever, unspecified (principal) | CPT/HCPCS: 87400 ==

== ENCOUNTER 2024-04-23 23:27 | Emergency (ER) | payer MEDICAID, SELFPAY ==
[2024-04-23 23:29] VITALS: BP 136/87; PULSE 87; RESP 18; TEMP 36.7; O2SAT 99; BMI 38.9
[2024-04-24] MEDS: cephALEXin 500 mg Capsule PO (01:43)
[2024-04-24 01:49] VITALS: BP 164/89; PULSE 70; O2SAT 96
--- NOTE | 2024-04-24 19:27 | W.ED.SKABFB ---
HPI - Skin/Abscess/Foreign Bdy General: Chief complaint: Skin/Abscess/Foreign Body Stated complaint: pain in left breast shooting up. and lump Time Seen by Provider: 04/24/24 00:42 History of Present Illness: This patient is a 48-year-old white female who presents to the emergency department stating that she feels a lump on the left side of her breast. It is painful and radiates up into the left axilla. She states she noticed this about 2 or 3 weeks ago. She cannot get into see a physician for about 2 to 3 weeks. She has not had any redness of the area. No fever. No drainage from the nipple. Related Data Previous Rx's ?Medication ?Instructions ?Recorded metronidazole 500 mg tablet 500 mg PO BID 7 days #14 tabs 05/14/23 naproxen 500 mg tablet (Naprosyn) 500 mg PO BID PRN pain #20 tabs 06/18/23 colchicine 0.6 mg tablet 0.6 mg PO BID #20 tabs 01/09/24 oseltamivir 75 mg capsule (Tamiflu) 75 mg PO BID 5 days #10 caps 04/12/24 cephalexin 500 mg capsule 500 mg PO QID 10 days #40 caps 04/24/24 Allergies Allergy/AdvReac Type Severity Reaction Status Date / Time latex Allergy Intermediate ALGY-Rash Verified 12/23/23 15:41 lisinopril Allergy Mild ALGY-Difficulty Verified 12/23/23 15:41 Swallowing Review of Systems General: Reports: 10 or more systems reviewed and unremarkable except in HPI and below Skin/Breast: Reports: breast pain and breast mass PFS ED PFSH: Medical History Mixed stress and urge urinary incontinence Follow-up at [facility] urology clinic, also chronic cystitis. Allergic rhinitis due to allergen CKD (chronic kidney disease), stage II Tinea corporis Gout Osteoarthritis involving multiple joints on both sides of body Depression Hyperlipidemia Pre-diabetes Asthma History of diabetes mellitus Morbid obesity with BMI of 40.0-44.9, adult Strain of right shoulder GERD (gastroesophageal reflux disease) Surgical History Right knee meniscal tear History of cholecystectomy History of tubal ligation H/O: Family History Mother CAD (coronary artery disease) Heart attack Grandmother CAD (coronary artery disease) Maternal grandmother Other Cancer Dementia Diabetes Hypertension Stroke Social History Smoking and tobacco/nicotine status: never used tobacco/nicotine Alcohol intake: never Substance/Drug Use: never Adopted: No Caregiver/support person: No Lives independently: Yes Current occupational status: unemployed Current gender identity: Female Physical Exam Const: COMMON NORMALS: no acute distress, patient oriented x3 and no limitations GENERAL APPEARANCE: cooperative and comfortable HENMT: COMMON NORMALS: normocephalic, atraumatic, Normal nasal mucous membranes and turbinates present, moist oral mucous membranes and oropharynx normal HEAD & SCALP: normal to inspection, normocephalic and atraumatic FACE & SINUS: normal facial exam NOSE: Normal nasal mucous membranes and turbinates present Eye: COMMON NORMALS: Equal, round and reactive pupils present, EOMs intact bilaterally and conjunctivae normal GENERAL EYE: appearance normal, both eyes and all related structures CONJUNCTIVA: Yes conjunctivae normal PUPIL: Yes Equal, round and reactive pupils present Neck/C-Spine: COMMON NORMALS: supple and no JVD Chest: COMMONS NORMALS: normal inspection of the chest and normal palpation of the breasts BREAST/AXILLA PALPATION: Yes normal palpation of the axillae, Yes normal palpation of the breasts, Yes no axillary lymphadenopathy and No breast lump OTHER: I could not palpate a breast lump or mass. There was some slight tenderness along the lateral aspect of the left breast. No axillary masses or lymphadenopathy. Resp: COMMON NORMALS: normal respiratory effort and clear to auscultation bilaterally AUSCULTATION: clear to auscultation bilaterally Cardio: COMMON NORMALS: no JVD, regular rate, regular rhythm, No gallops present (Cardio), No murmurs present (Cardio) and No rub (Cardio) RATE: regular rate RHYTHM: regular rhythm GI: COMMON NORMALS: Normal to inspection, nondistended, normoactive bowel sounds present, Soft to palpation and non-tender AUSCULTATION: Yes normoactive bowel sounds PALPATION: Yes Soft to palpation : COMMON NORMALS: Yes no CVA tenderness BLADDER/KIDNEY EXAM: Yes no CVA tenderness Back/Pelvis: COMMON NORMALS: no CVA tenderness and thoracic and lumbar spine normal to inspection Extremity: COMMON NORMALS: normal to inspection Neuro: COMMON NORMALS: patient oriented x3 and CN's II-XII intact bilaterally Psych: COMMON NORMALS: mental status grossly normal, Normal thought process present and cooperative THOUGHT PROCESS: Normal thought process present Skin: COMMON NORMALS: no rashes or lesions noted, turgor normal and no jaundice GENERAL SKIN EXAM: no rashes or lesions noted and turgor normal Course Vital Signs: Vital signs: Vital Signs Temperature 98.1 F 04/23/24 23:29 Pulse Rate 70 04/24/24 01:49 Respiratory Rate 18 04/23/24 23:29 Blood Pressure 164/89 04/24/24 01:49 Pulse Oximetry 96 04/24/24 01:49 Oxygen Delivery Me thod Room Air 04/23/24 23:29 MDM - Skin/Abscess/Foreign Bdy Medicial Decision Making I did place the patient on Keflex for possible mastitis. I recommended she follow-up with her physician and have them order a mammogram. Patient was discharged in stable condition. No radiology studies performed this visit Discharge Plan Discharge Patient Disposition: Home Clinical Impression: Mastitis in female Condition: Stable Prescriptions: New cephalexin 500 mg capsule 500 mg PO QID 10 Days Qty: 40 0RF No Action oseltamivir [Tamiflu] 75 mg capsule 75 mg PO BID 5 Days Qty: 10 0RF metronidazole 500 mg tablet 500 mg PO BID 7 Days Qty: 14 0RF Naprosyn 500 mg tablet 500 mg PO BID PRN (Reason: pain) Qty: 20 0RF colchicine 0.6 mg tablet 0.6 mg PO BID Qty: 20 0RF Discharge Orders: Discharge ED (Routine); Ordered 04/24/24 Ordered By: Ernie Hopkins Patient Instructions: Mastitis Activity Restrictions/Additional Instructions: Follow-up with your primary care provider next week for recheck. You may need to be scheduled for a mammogram. Print Language: Ghanaian Coding Level of Care Code ED Supervisor Bottle Machines for Deandre Shane
== END 2024-04-24 01:50 | disposition home or self-care (01) ==
PROVIDERS: Emergency Provider Emergency Medicine
DX: N61.0 Mastitis without abscess (principal); N18.2 Chronic kidney disease, stage 2 (mild); E78.5 Hyperlipidemia, unspecified
CPT/HCPCS: 99283

== ENCOUNTER 2024-05-27 12:56 | Outpatient (CLI) | payer MEDICAID, SELFPAY ==
--- NOTE | 2024-05-27 13:03 | MM_ITS ---
WS: [id number] BILATERAL 3D TOMOSYNTHESIS DIGITAL DIAGNOSTIC MAMMOGRAPHY WITH CAD CLINICAL INFORMATION: LT BREAST LUMP HISTORY: LEFT breast lump COMPARISON: None. TECHNIQUE: Bilateral CC, MLO, and ML views. FINDINGS: Scattered fibroglandular densities bilaterally. No suspicious abnormalities in the area of palpable concern. A few incidental punctate lucent centered calcifications. Small ovoid nodule outer LEFT breast anteriorly. Ultrasound this area is pending. Unremarkable RIGHT breast. ULTRASOUND BREAST LEFT TECHNIQUE: Ultrasound left breast focused area of concern. CLINICAL INFORMATION: LT BREAST LUMP COMPARISON: None. FINDINGS: Ultrasound LEFT breast in the area of palpable concern and 3 o'clock position. Normal underlying parenchymal tissue in the area of palpable concern. No suspicious findings in this area. At the 2 o'clock position there is a small ovoid nodule likely incidental intramammary lymph node corresponding to the mammographic nodule measuring 9 mm. No other suspicious findings. Recommend return to annual screening mammography. MM/MM diag BI tomosynthesis [id number] IMPRESSION: DENSITY: There are scattered areas of fibroglandular density. BI-RADS: 2 - Benign. FOLLOW UP: 1 Year Follow-up Recommend return to annual screening mammography.
== END 2024-05-27 12:57 | disposition home or self-care (01) ==
PROVIDERS: Visit Provider Advanced Practice Midwife
DX: N63.25 Unspecified lump in the left breast, overlapping quadrants (principal); R92.323 Mammographic fibroglandular density, bilateral breasts; R92.1 Mammographic calcification found on diagnostic imaging of breast; N63.21 Unspecified lump in the left breast, upper outer quadrant
CPT/HCPCS: 76642; 77062; G0279

== ENCOUNTER 2024-06-23 19:55 | Emergency (ER) | payer MEDICAID, SELFPAY ==
[2024-06-23] VITALS (7 sets, daily range): BP systolic 108–142; BP diastolic 22–88; PULSE 59–78; RESP 16–20; TEMP 36.4; O2SAT 90–98; BMI 38.9
--- NOTE | 2024-06-23 21:14 | CTR_ITS ---
PROCEDURE INFORMATION: Exam: CT Abdomen And Pelvis Without Contrast Exam date and time: 06/23/2024 9:56 PM Age: 48 years old Clinical indication: Abdominal pain; Generalized; Prior surgery; Surgery date: 6+ months; Surgery type: Csection, gb, tubal, hernia; Additional info: Flank/groin pain sudden onset right TECHNIQUE: Imaging protocol: Computed tomography of the abdomen and pelvis without contrast. Radiation optimization: All CT scans at this facility use at least one of these dose optimization techniques: automated exposure control; mA and/or kV adjustment per patient size (includes targeted exams where dose is matched to clinical indication); or iterative reconstruction. COMPARISON: CT abdomen pelvis w con* [id number] 07/28/2020 8:53 PM RADIATION DOSE METRICS: Total DLP (mGy-cm): 1114.96 FINDINGS: Liver: Unremarkable. Gallbladder and biliary ducts: Cholecystectomy. Pancreas: Unremarkable. Spleen: Splenic granulomas. Adrenal glands: Unremarkable. Kidneys and ureters: 2 mm calcified obstructing stone at the right UPJ with minimal right-sided hydronephrosis. Right upper pole nonobstructive calcified calyceal stone. Stomach and bowel: 2.1 x 2.2 cm duodenal diverticulum along the pancreatic head. No mechanical obstruction. No mucosal thickening. Appendix: Unremarkable. Intraperitoneal space: No free air or free fluid. Vasculature: Mild atherosclerotic changes of the aorta and its major branches. Lymph nodes: Unremarkable. Urinary bladder: Poorly distended bladder. Reproductive: Nabothian gland cyst. Bones/joints: Mild multilevel spondylosis. Soft tissues: Unremarkable. CT/CT kidney stone [id number] IMPRESSION: 2 mm calcified obstructing stone at the right UPJ with minimal right-sided hydronephrosis.
[2024-06-23 21:26] LABS: Basophils # 0.1 10^3/uL (0.0-0.1); Basophils % 0.5 %; Eosinophils # 0.2 10^3/uL (0.0-0.8); Eosinophils % 1.8 %; Hematocrit 41.8 % (36-47); Lymphocytes # 1.9 10^3/uL (0.8-4.8); Lymphocytes % 19.8 %; Mean Corpuscular HGB Conc 32.8 g/dL (30-55); Mean Corpuscular Hemoglobin 30.2 pg (27-33); Mean Corpuscular Volume 92.3 fl (85-98); Mean Platelet Volume 11.3 fL (7.4-10.4); Monocytes # 0.6 10^3/uL (0.2-0.9); Neutrophils # 6.66 10^3/uL (1.8-7.7); Neutrophils % 71.5 %; Nucleated Red Blood Cells % 0 %; Platelet Count 281 10^3/cmm (157-399); Red Blood Count 4.53 10^6/uL (3.85-5.65); Red Cell Distribution Width 13.7 % (12.1-15.1); White Blood Count 9.33 10^3/uL (3.29-11.43)
[2024-06-23] MEDS: ondansetron 2 mg/ML SDV 2 mL 4 MG IVP (21:26)
[2024-06-23] MEDS: ketorolac 30 mg/mL INJ 15 MG IVP (21:30)
[2024-06-23] MEDS: sodium chloride 0.9% 1,000 ML 999 ML IV (21:32)
[2024-06-23] MEDS: morphine 4 mg/mL SDV 1 mL IVP ×2 (21:33→23:37)
[2024-06-23 21:44] LABS: Alanine Aminotransferase 11 U/L (0-33); Albumin Level 4.1 g/dL (3.5-5.2); Alkaline Phosphatase 91 U/L (35-105); Aspartate Amino Transferase 13 U/L (0-32); Blood Urea Nitrogen 12 mg/dL (6-20); Carbon Dioxide 23 mmol/L (22-29); Chloride 105 mmol/L (98-107); Creatinine Clr Calc Pharmacy 63.8818; Glomerular Filtration Rate 47.7 mL/min (90-130); Glucose 114 mg/dL (65-115); Osmolality Calculated 295 mOsm/kg (285-295); Sodium 142 mmol/L (136-145); Total Bilirubin 0.4 mg/dL (0.15-1.2); Total Protein 7.1 g/dL (6.6-8.7)
[2024-06-23 22:02] LABS: Bacteria Urine 4+ /hpf; Hyaline Casts Urine 1.21 /lpf; RBC Urine >100 /hpf (0-2)
[2024-06-23 22:09] LABS: Add Urine Culture? No; Add Urine Microscopic? YES; Bilirubin Urine Neg (Negative); Blood Urine 3+ (Negative); Glucose Urine UA Norm (Normal); Ketones Urine Negative (Negative); Leukocyte Esterase Urine Negative (Negative); Nitrate Urine Negative (Negative); Protein Urine Trace (Negative); Specific Gravity, Urine 1.015 (1.005-1.030); Urine Appearance Slightly Cloudy (CLEAR); Urine Color Yellow (Yellow); Urobilinogen Urine Neg (Negative); pH Urine 5 (5-7)
[2024-06-24] VITALS: BP 113/78; PULSE 63; RESP 14; O2SAT 94
[2024-06-24 00:30] VITALS: BP 143/87; PULSE 60; RESP 17; O2SAT 93
[2024-06-24 00:51] VITALS: BP 143/87; PULSE 64; O2SAT 96
--- NOTE | 2024-06-24 04:55 | ED_ITS ---
HPI - Female Genitourinary 2 General: Chief complaint: Urogenital-Female Stated complaint: R side Pain from front to lower back Time Seen by Provider: 06/23/24 20:56 History of Present Illness: Patient is a 48-year-old female seen for acute onset right flank pain radiating to the right groin associated with nausea. She rates the pain as 10 of 10 and describes it as sharp and cramping. Pain is not better with any positioning. She has not vomited though she felt she was going to. She denies dysuria or frequency or recent fever. Related Data Previous Rx's ?Medication ?Instructions ?Recorded metronidazole 500 mg tablet 500 mg PO BID 7 days #14 t abs 05/14/23 naproxen 500 mg tablet (Naprosyn) 500 mg PO BID PRN pa in #20 tabs 06/18/23 colchicine 0.6 mg tablet 0.6 mg PO BID #20 tabs 01/08 oseltamivir 75 mg capsule (Tamiflu) 75 mg PO BID 5 day s #10 caps 04/12/24 ketorolac 10 mg tablet 10 mg PO Q8H PRN pain 5 days #15 06/24/24 tabs ondansetron 4 mg disintegrating 4 mg PO Q8H PRN nausea and 06/24/24 tablet vomiting 4 days #20 tabs oxycodone 5 mg capsule 5 mg PO Q8H PRN pain #14 cap s 06/24/24 Allergies Allergy/AdvReac Type Severity Reaction Status Date / Time latex Allergy Intermediate ALGY-Rash Verified 06/23/24 20:07 lisinopril Allergy Mild ALGY-Difficulty Verified 06/23/24 20:07 Swallowing [facility] ED 2 PFSH: Medical History Mixed stress and urge urinary incontinence Follow-up at [facility] urology clinic, also chronic cystitis. Allergic rhinitis due to allergen CKD (chronic kidney disease), stage II Tinea corporis Gout Osteoarthritis involving multiple joints on both sides of body Depression Hyperlipidemia Pre-diabetes Asthma History of diabetes mellitus Morbid obesity with BMI of 40.0-44.9, adult Strain of right shoulder GERD (gastroesophageal reflux disease) Surgical History Right knee meniscal tear History of cholecystectomy History of tubal ligation H/O: Family History Mother CAD (coronary artery disease) Heart attack Grandmother CAD (coronary artery disease) Maternal grandmother Other Cancer Dementia Diabetes Hypertension Stroke Social History Smoking and tobacco/nicotine status: never used tobacco/nicotine Alcohol intake: never Substance/Drug Use: never Adopted: No Caregiver/support person: No Lives independently: Yes Current occupational status: unemployed Current gender identity: Female Physical Exam 2 Const: COMMON NORMALS: no acute distress, patient oriented x3 and alert HENMT: COMMON NORMALS: normocephalic and atraumatic HEAD & SCALP: n ormocephalic and atraumatic Eye: COMMON NORMALS: Equal, round and reactive pupils present, EOMs intact bilaterally and no scleral icterus PUPIL: Yes Equal, round and reactive pupils present Resp: COMMON NORMALS: normal respiratory effort and No retractions Cardio: COMMON NORMALS: regular rate, regular rhythm and No murmurs present (Cardio) RATE: regular rate RHYTHM: regular rhythm GI: OTHER: Abdominal pain is not reproduced with palpation. Normal bowel sounds. No focal tenderness. Neuro: COMMON NORMALS: patient oriented x3 SENSORIUM/ORIENTATION: Yes alert Skin: COMMON NORMALS: no rashes or lesions noted GENERAL SKIN EXAM: no rashes or lesions noted Course 2 Vital Signs: Vital signs: Vital Signs Temperature 97.6 F 06/23/24 20:00 Pulse Rate 64 06/24/24 00:51 Respiratory Rate 17 06/24/24 00:30 Blood Pressure 143/87 06/24/24 00:51 Pulse Oximetry 96 06/24/24 00:51 Oxygen Delivery Me thod Room Air 06/24/24 00:30 MDM - Female Medical Decision Making In summary, patient is a well-appearing 48-year-old female seen for right sided abdominal pain which she CT shows to be caused by a 2 mm right distal ureteral stone with mild hydronephrosis. Pain is much better with Toradol, morphine, and nausea is better with Zofran. She will be discharged with prescriptions for Toradol, oxycodone, and Zofran with follow-up to urology if needed. She is agreeable to the plan. Lab Data 04/16/25 21:20 06/23/24 21:20 Radiology Impressions Abdomen/Pelvis CT 06/23/24 21:14 IMPRESSION: 2 mm calcified obstructing stone at the right UPJ with minimal right-sided hydronephrosis. Laboratory Results WBC 9.33 10^3/uL (3.29-11.43) 06/23/24 21:20 RBC 4.53 10^6/uL (3.85-5.65) 06/23/24 21:20 Hgb 13.70 g/dL (11.27-16.99) 06/23/24 21:20 Hct 41.8 % (36-47) 06/23/24 21:20 MCV 92.3 fl (85-98) 06/23/24 21:20 MCH 30.2 pg (27-33) 06/23/24 21:20 MCHC 32.8 g/dL (30-55) 06/23/24 21:20 RDW 13.7 % (12.1-15.1) 06/23/24 21:20 Plt Count 281 10^3/cmm (157-399) 06/23/24 21:20 MPV 11.3 fL (7.4-10.4) H 06/23/24 21:20 Neut % (Auto) 71.5 % 06/23/24 21:20 Lymph % (Auto) 19.8 % 06/23/24 21:20 [place] % (Auto) 6.0 % 06/23/24 21:20 Eos % (Auto) 1.8 % 06/23/24 21:20 Baso % (Auto) 0.5 % 06/23/24 21:20 Neut # (Auto) 6.66 10^3/uL (1.8-7.7) 06/23/24 21:20 Lymph # (Auto) 1.9 10^3/uL (0.8-4.8) 06/23/24 21:20 [place] # (Auto) 0.6 10^3/uL (0.2-0.9) 06/23/24 21:20 Eos # (Auto) 0.2 10^3/uL (0.0-0.8) 06/23/24 21:20 Baso # (Auto) 0.1 10^3/uL (0.0-0.1) 06/23/24 21:20 Nucleated RBC % (auto) 0 % 06/23/24 21:20 Nucleated RBCs # 0.0 /100WBC 06/23/24 21:20 Sodium 142 mmol/L (136-145) 06/23/24 21:20 Potassium 4.0 mmol/L (3.5-5.1) 06/23/24 21:20 Chloride 105 mmol/L (98-107) 06/23/24 21:20 Carbon Dioxide 23 mmol/L (22-29) 06/23/24 21:20 Anion Gap 18.0 (5-19) 06/23/24 21:20 BUN 12 mg/dL (6-20) 06/23/24 21:20 Creatinine 1.2 mg/dL (0.5-0.9) H 06/23/24 21:20 GFR Calculation 47.7 mL/min (90-130) L 06/23/24 21:20 Glucose 114 mg/dL (65-115) 06/23/24 21:20 Calculated Osmolality 295 mOsm/kg (285-295) 06/23/24 21:20 Calcium 9.0 mg/dL (8.5-10.5) 06/23/24 21:20 Total Bilirubin 0.4 mg/dL (0.15-1.2) 06/23/24 21:20 AST 13 U/L (0-32) 06/23/24 21:20 ALT 11 U/L (0-33) 06/23/24 21:20 Alkaline Phosphatase 91 U/L (35-105) 06/23/24 21:20 Total Protein 7.1 g/dL (6.6-8.7) 06/23/24 21:20 Albumin 4.1 g/dL (3.5-5.2) 06/23/24 21:20 Globulin 3.0 g/dL (1.3-4.6) 06/23/24 21:20 Urine Color Yellow (Yellow) 06/23/24 21:20 Urine Appearance Slightly cloudy (CLEAR) 06/23/24 21:20 Urine pH 5 (5-7) 06/23/24 21:20 Ur Specific [place] 1.015 (1.005-1.030) 06/23/24 21:20 Urine Protein Trace (Negative) H 06/23/24 21:20 Urine Glucose (UA) Norm (Normal) 06/23/24 21:20 Urine Ketones Negative (Negative) 06/23/24 21:20 Urine Blood 3+ (Negative) A 06/23/24 21:20 Urine Nitrate Negative (Negative) 06/23/24 21:20 Urine Bilirubin Neg (Negative) 06/23/24 21:20 Urine Urobilinogen Neg mg/dL (Negative) 06/23/24 21:20 Ur Leukocyte Esterase Negative (Negative) 06/23/24 21:20 Urine RBC >100 /hpf (0-2) H 06/23/24 21:20 Urine WBC 11-20 /hpf (0-5) H 06/23/24 21:20 Ur Squamous Epith Cells 11-20 /hpf (0-5) H 06/23/24 21:20 Amorphous Sediment Not Reportable 06/23/24 21:20 Urine Bacteria 4+ /hpf (NONE) H 06/23/24 21:20 Hyaline Casts 1.21 /lpf 06/23/24 21:20 All radiology interpretation(s) finalized by discharge ED provider radiology interpretation(s): CT read to show 2 mm distal right ureteral stone Discharge Plan Discharge Patient Disposition: Home Clinical Impression: Right distal ureteral calculus Condition: Stable Prescriptions: New ketorolac 10 mg tablet 10 mg PO Q8H PRN (Reason: pain) 5 Days Qty: 15 0RF oxycodone 5 mg capsule 5 mg PO Q8H PRN (Reason: pain) Qty: 14 0RF ondansetron 4 mg tablet,disintegrating 4 mg PO Q8H PRN (Reason: nausea and vomiting) 4 Days Qty: 20 0RF No Action oseltamivir [Tamiflu] 75 mg capsule 75 mg PO BID 5 Days Qty: 10 0RF metronidazole 500 mg tablet 500 mg PO BID 7 Days Qty: 14 0RF Naprosyn 500 mg tablet 500 mg PO BID PRN (Reason: pain) Qty: 20 0RF colchicine 0.6 mg tablet 0.6 mg PO BID Qty: 20 0RF Discharge Orders: Discharge ED (Routine); Ordered 06/24/24 Ordered By: Joe Shi Discharge Diet: Advance as tolerated Discharge Activity: Resume usual activity Patient Instructions: Ureteral Stones (ED), Opioid Safety, Pain Management Activity Restrictions/Additional Instructions: Your kidney stone is only 2 mm in diameter and has already traversed the majority of the ureter such that it should pass spontaneously in the next day. Please take Toradol for pain. While taking Toradol, it is safe to drive. If pain is still severe after taking Toradol, please take oxycodone for breakthrough pain. Zofran is for nausea. Print Language: [place] Citizen Coding Level of Care Code ED Contracting Analyst for Deandre Shane
--- NOTE | 2024-06-24 13:26 | DCPLANNER ---
faxed packet to urology [facility]tn home and pushed images
== END 2024-06-24 00:52 | disposition home or self-care (01) ==
PROVIDERS: Emergency Provider Student in an Organized Health Care Education/Training Program
DX: N20.1 Calculus of ureter (principal); E78.5 Hyperlipidemia, unspecified; N18.2 Chronic kidney disease, stage 2 (mild)
CPT/HCPCS: 36415; 74176; 80053; 81001; 85025; 96361; 96374; 96375; 96376; 99285; J1885; J2270; J2405; J7030

== ENCOUNTER → 2024-07-01 11:56 | Outpatient (BNVA) | payer MEDICAID, SELFPAY | PROVIDERS: Visit Provider Family Medicine | DX: R73.03 Prediabetes (principal); D50.9 Iron deficiency anemia, unspecified; R53.83 Other fatigue; E55.9 Vitamin D deficiency, unspecified; E66.01 Morbid (severe) obesity due to excess calories; Z68.41 Body mass index [BMI] 40.0-44.9, adult; E53.8 Deficiency of other specified B group vitamins | CPT/HCPCS: 80053; 82306; 82607; 82728; 83036; 83550; 84443; 85025 ==

== ENCOUNTER → 2024-09-19 13:00 | Outpatient (BNVA) | payer MEDICAID, SELFPAY | PROVIDERS: PCP Family Medicine; Visit Provider Nurse Practitioner | DX: M19.071 Primary osteoarthritis, right ankle and foot (principal); M77.31 Calcaneal spur, right foot | CPT/HCPCS: 73630 ==

== ENCOUNTER 2024-09-21 22:00 | Emergency (ER) | payer MEDICAID, SELFPAY ==
--- OUTSIDE RECORDS SUMMARY | 2024-09-21 22:06 | XMS_ITS | Patient Health Record ---
Author Organization [facility] Address [address] [place] [address] Care Team Providers Care Cattle Driver Name Role Phone Jr Alfaro MD Primary Care Provider Unavailab Paulo Rodriguez Unavailable [phone] Diego Fisher Unavailable Unavailable Allergies Allergen (clinical drug ingredient) Drug/Non Drug Allergy documented on EMR Reaction Allergy Type Onset Date Status lisinopril Lisinopril Unknown Drug Allergy Activ e Reason For Referral No Information Medications Medication SIG (Take, Route, Frequency, Duration) Notes Start Date End Date Status BuPROPion HBr Active Naproxen Active Albuterol Active Loratadine Active Nystatin Active Pantoprazole Sodium Active Semaglutide Active metroNIDAZOLE 500 MG Tablet 1 tablet Ora lly Twice a day; Duration: 7 day(s) Active oxyBUTYnin Active Ondansetron Active Allopurinol Active Fluticasone Furoate Active Social History Tobacco Use: Social History Observation Description Date Details (start date - stop date) Never Smoker NA - NA Social History Tobacco Use: Social Info Question Answer Notes xTobacco Use/Smoking Are you a nonsmoker Problems Problem Type SNOMED Code ICD Code Onset Dates Problem Status W/U Status Risk Notes Problem 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 (327826603) 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) Active confirmed Problem Chronic cystitis (70055039) Chronic cystitis (N30.20) Active confirmed Problem Mixed incontinence (836031823) Urinary incontinence, mixed (N39.46) Active confirmed Problem Urinary incontinence (338839142) Urinary incontinence, unspecified type (R32) Active confirmed Plan Of Treatment No Information Insurance Providers Payer Name Payer Address Payer Phone Subscriber Number Group Number Insured Name Patient Relationship to Insured Coverage Start Date Coverage End Date [facility] Health Plan Medicaid Replacement [address] [place] [address] [id number] Aisha Cooper Self - patient is the insured [place] Medicaid [address] [place] [address] [phone] [id number] Aisha Cooper Self - patient is the insured Medical (General) History Medical History History ICD Code recurrent UTI plantar facsitis tinea corporis angina gout diabetes mellitus bronchitis Surgical History Surgery Date(Month/Year) cholecystectomy right knee surgery exploratory laproscopic surgery D&C X5 hernia repairs X2
--- OUTSIDE RECORDS SUMMARY | 2024-09-21 22:06 | XMS_ITS | Patient Health Record ---
Author Organization [facility] Address [address] [place] [address] Care Team Providers Care Rubber Compounder Supervisor Name Role Phone Jr Alfaro MD Primary Care Provider Unavailab Paulo Rodriguez Unavailable [phone] Diego Fisher Unavailable Unavailable Reason For Referral No Information Medications Medication SIG (Take, Route, Frequency, Duration) Notes Start Date End Date Status oxyBUTYnin *[facility] and Interaction [facility]* Active Loratadine *Pick strength-f orm from [facility] for eRX* Active Allopurinol *Pick strength-f orm from [facility] for eRX* Active Nystatin *[facility]* Active Naproxen *Pick strength-f orm from [facility] for eRX* Active metroNIDAZOLE 500 MG 1 tablet Orally Twice a day for 7 day(s) Active Albuterol *Reorder from [facility] for eRx and Interaction Alerts* Active Ondansetron *Pick strength-f orm from [facility] for eRX* Active Fluticasone Furoate *Reorder fro m [facility] for eRx and Interaction Alerts* Active Pantoprazole Sodium *Pick streng th-form from [facility] for eRX* Active BuPROPion HBr *Reorder from [facility] for eRx and Interaction Alerts* Active Semaglutide *Reorder from [facility] for eRx and Interaction Alerts* Active Problems Problem Type SNOMED Code ICD Code Onset Dates Problem Status W/U Status Risk Notes Problem 872558614 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) Active confirmed Problem 295211140 Urinary incontinence, mixed (N39.46) Active confirmed Problem 71214444 Chronic cystitis (N30.20) Active confirmed Problem 433090409 Urinary incontinence, unspecified type (R32) Active confirmed Encounters Encounter Location Date Provider Diagnosis [facility] [address] [place] [address] 06/24/2024 Paulo Shraddhaaudrey Plan Of Treatment No Information Insurance Providers Payer Name Payer Address Payer Phone Subscriber Number Group Number Insured Name Patient Relationship to Insured Coverage Start Date Coverage End Date [facility] Health Plan [address] [place], [place] [id number] Aisha Cooper Self - patient is the insured [place] Medicaid [address] [place], [place] [id number] Aisha Cooper Self - patient is the insured Medical (General) History Surgical History Surgery Date(Month/Year) hernia repairs X2 D&C X5 exploratory laproscopic surgery right knee surgery cholecystectomy
--- OUTSIDE RECORDS SUMMARY | 2024-09-21 22:06 | XMS_ITS | Clinical Summary ---
Author Organization [facility] Address [address] [place] [address] Care Team Providers Care Senior Administrative Associate Name Role Phone Eren Betancourt MD, Margarito Cisneros Primary Care Provider Medications METFORMIN 850 mg Oral Tab Take 850 mg by mouth 2 times daily with meals. Active TRAZODONE 50 mg Oral Tab Take 50 mg by mouth daily at bedtime. Active ALBUTEROL IN Take by inhalation. Active ZANTAC PO Take by mouth. Active TOPAMAX 100 mg Oral Tab Take 100 mg by mouth 2 times daily. Active SANCTURA 20 mg Oral Tab Take 20 mg by mouth daily. Active CLONAZEPAM 0.5 mg Oral Tab Take 0.5 mg by mouth 2 times daily. Active Active Problems Problem Noted Date Diagnosed Date Headache(784.0) 06/03/2008 Numbness 06/03/2008 Epilepsy, generalized, convulsive 06/03/2008 SO (obstructive sleep apnea) 06/03/2008 Family History Medical History Relation Name Comments Diabetes Father Other Father Healthy Mother Relation Name Status Comments Brother 1 Alive Brother 2 Alive Father Alive Mother Alive Sister Alive Social History Tobacco Use Types Packs/Day Years Used Date Smoking Tobacco: Never Alcohol Use Standard Drinks/Week Comments No 0 (1 standard drink = 0.6 oz pur e alcohol) Comments No Sex and Gender Information Value Date Recorded Sex Assigned at Not on file 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 Gender Identity Not on file Sexual Orientation Not on file Last Filed Vital Signs Vital Sign Reading Time Taken Comments Blood Pressure 128/79 06/03/2008 11:16 AM CDT Pulse 95 06/03/2008 11:16 AM CDT Temperature 36.3 C (97.4 F) 06/03/2008 11:16 AM CDT Respiratory Rate 16 06/03/2008 11:16 AM CDT Oxygen Saturation 97% 06/03/2008 11:16 AM CDT Inhaled Oxygen Concentration - - Weight 107 kg (236 lb) 06/03/2008 11:16 AM CDT Height 160 cm (5' 3 ) 06/03/2008 11:16 AM CDT Body Mass Index 41.81 06/03/2008 11:16 AM CDT Plan of Treatment Health Maintenance Due Date Last Done Comments DTAP/TDAP/TD VACCINES (1 - Tdap) 1993 HEPATITIS B VACCINES (1 of 3 - 19+ 3-dose series) 10/09 HPV/Cotest (21-29) 11/02/1995 CERVICAL CANCER SCREENING 2004 HPV/Cotest (30-65) 2004 PAP SMEAR 2004 BREAST CANCER SCREENING 2014 COLORECTAL SCREENING 11/02/2019 Colorectal Cancer Screening 11/02/2019 FIT-DNA Q 3 years 11/02/2019 FIT/FOBT Q 1 year 11/02/2019 Flex Sig/CT Colonography Q 5 years 11/02/2019 INFLUENZA VACCINE (#1) 2024 Insurance [id number] [place] [address] MEDICAID [place] Care Teams Senior Administrative Associate Relationship Specialty Start Date End Date Margarito Jason Jr., MD [address] [address] PCP - General 05/16/08
[2024-09-21 22:23] VITALS: BP 140/89; PULSE 80; RESP 18; TEMP 36.7; O2SAT 97; BMI 38.9
--- NOTE | 2024-09-21 22:43 | XRR_ITS ---
PROCEDURE INFORMATION: Exam: XR Right Foot Exam date and time: 09/21/2024 11:04 PM Age: 48 years old Clinical indication: Injury or trauma; Other: Stubbed; Crushing; Foot; Right; Additional info: PT states she stubbed foot/toe 3 days ago and was told she has dislocated toes TECHNIQUE: Imaging protocol: Radiologic exam of the right foot. Views: 3 or more views. COMPARISON: CR XR foot RT min 3V* [id number] 09/19/2024 1:02 PM FINDINGS: Bones/joints: Mild 1st metatarsophalangeal joint osteoarthritis. Distal Achilles tendon degenerative calcification. Small calcified heel spur. Soft tissues: Soft tissue swelling about the forefoot, nonspecific. XR/XR foot RT min 3V* [id number] IMPRESSION: 1. Negative for fracture or dislocation, consider further evaluation with a CT scan if concern for fracture remains. 2. Mild 1st metatarsophalangeal joint osteoarthritis. 3. Distal Achilles tendon degenerative calcification. 4. Small calcified heel spur. 5. Soft tissue swelling about the forefoot, nonspecific.
--- NOTE | 2024-09-21 22:43 | XRR_ITS ---
PROCEDURE INFORMATION: Exam: XR Left Foot Exam date and time: 09/21/2024 11:06 PM Age: 48 years old Clinical indication: Injury or trauma; Other: Stubbed toe; Crushing; Foot; Left; Additional info: PT states she stubbed foot/toe 3 days ago and was told she has dislocated toes TECHNIQUE: Imaging protocol: Radiologic exam of the left foot. Views: 3 or more views. COMPARISON: CR XR foot LT min 3V* [id number] 01/09/2024 6:41 PM FINDINGS: Bones/joints: Moderate 1st metatarsophalangeal joint osteoarthritis. Distal Achilles tendon degenerative calcification. Soft tissues: Normal. XR/XR foot LT min 3V* [id number] IMPRESSION: 1. Negative for fracture or dislocation, consider further evaluation with a CT scan if concern for fracture remains. 2. Moderate 1st metatarsophalangeal joint osteoarthritis. 3. Distal Achilles tendon degenerative calcification.
--- NOTE | 2024-09-22 00:45 | XRR_ITS ---
PROCEDURE INFORMATION: Exam: XR Chest Exam date and time: 09/22/2024 1:07 AM Age: 48 years old Clinical indication: Pain; Chest pressure; Additional info: Chest pain TECHNIQUE: Imaging protocol: Radiologic exam of the chest. Views: 1 view. COMPARISON: CR XR chest 1V portable [id number] 12/16/2023 3:48 PM FINDINGS: Lungs: Right midlung calcified benign granuloma. No consolidation. Pleural spaces: Unremarkable. No pleural effusion. No pneumothorax. Heart/Mediastinum: Unremarkable. No cardiomegaly. Bones/joints: Unremarkable. XR/XR chest 1V portable [id number] IMPRESSION: No acute findings.
--- NOTE | 2024-09-22 01:01 | ECG_ITS ---
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 Measurements Intervals [place] Rate: 75 P: 11 HI: 165 QRS: -11 QRSD: 96 T: 1 QT: 395 QTc: 442 Interpretive Statements SINUS RHYTHM LEFT VENTRICULAR HYPERTROPHY AND ST-T CHANGE [VOLTAGE CRITERIA PLUS ST/T ABNORMALITY] Poor R wave progression Compared to ECG 09/09/2019 17:57:18 ST (T wave) deviation now present Myocardial infarct finding no longer present Electronically Signed On 09-22-2024 16:45:40 CDT by Ines Sanches M.D. [id number]
[2024-09-22 01:07] LABS: Hematocrit 40.7 % (36-47); Hemoglobin 13.10 g/dL (11.27-16.99); Mean Corpuscular HGB Conc 32.2 g/dL (30-55); Mean Corpuscular Hemoglobin 29.7 pg (27-33); Mean Corpuscular Volume 92.3 fl (85-98); Nucleated Red Blood Cells % 0 %; Platelet Count 280 10^3/cmm (157-399); Red Blood Count 4.41 10^6/uL (3.85-5.65); White Blood Count 10.31 10^3/uL (3.29-11.43)
[2024-09-22 01:15] VITALS: BP 158/96; PULSE 70; O2SAT 99
[2024-09-22 01:32] LABS: Troponin(5th) Baseline 7 ng/L (0-10)
[2024-09-22 01:42] LABS: Alanine Aminotransferase 31 U/L (0-33); Albumin Level 4.1 g/dL (3.5-5.2); Alkaline Phosphatase 132 U/L (35-105); Anion Gap 18.1 (5-19); Aspartate Amino Transferase 29 U/L (0-32); Blood Urea Nitrogen 10 mg/dL (6-20); Calcium 9.7 mg/dL (8.5-10.5); Carbon Dioxide 25 mmol/L (22-29); Chloride 100 mmol/L (98-107); Creatinine Clr Calc Pharmacy 76.6581; Globulin 2.7 g/dL (1.3-4.6); Glucose 97 mg/dL (65-115); NT Pro B Type Natriuretic Pept 40 pg/mL (0-125); Osmolality Calculated 287 mOsm/kg (285-295); Potassium 4.1 mmol/L (3.5-5.1); Sodium 139 mmol/L (136-145); Total Protein 6.8 g/dL (6.6-8.7)
[2024-09-22 02:36] VITALS: BP 127/84; PULSE 73; O2SAT 97
--- NOTE | 2024-09-22 05:16 | W.ED.EXTPRO ---
HPI - Extremity Problem General: Chief complaint: Extremity Injury, Lower Stated complaint: Rt Foot Injury Time Seen by Provider: 09/21/24 22:47 History of Present Illness: 48-year-old female with history of gout, POTS, prior GI bleed and borderline hypertension presents with 4 days of severe right foot pain and swelling after stubbing her toes on a table. Pain rated 9/10, described as throbbing and ?about to explode.? OTC ibuprofen provides minimal relief; unable to obtain prior prescription due to pharmacy shortage. She notes both feet are ?black and blue,? right markedly worse, with redness and warmth. Reports mild shortness of breath on exertion and occasional orthopnea but denies chest pain. No recent long-distance walking beyond usual activity; did buy new shoes after onset. No prior fractures or dislocations recalled. Denies fever or systemic symptoms. Has been elevating feet and intermittently using a compression wrap. Avoids prescribed controlled-substance analgesic due to adverse effects. Related Data Previous Rx's ?Medication ?Instructions ?Recorded omeprazole 40 mg capsule,delayed 40 mg PO DAILY #30 caps 07/01/24 release cholecalciferol (vitamin D3) 1,250 50,000 unit PO .weekly #12 caps 07/02/24 mcg (50,000 unit) capsule bupropion HCl 150 mg 24 hr tablet, 150 mg PO QAM #30 tabs 08/23/24 extended release (Wellbutrin XL) polyethylene glycol 3350 17 4 g PO DAILY #476 grams 08/23/24 gram/dose oral powder (Miralax) diclofenac sodium 3 % topical gel 1 applic topical BID PRN pain #100 09/19/24 (Solaraze) grams silver sulfadiazine 1 % topical 1 applic topical BID #25 grams 09/19/24 cream (Silvadene) cephalexin 500 mg capsule 500 mg PO Q8H 7 days #21 caps 09/22/24 Allergies Allergy/AdvReac Type Severity Reaction Status Date / Time latex Allergy Intermediate ALGY-Rash Verified 09/21/24 22:30 lisinopril Allergy Mild ALGY-Difficulty Verified 09/21/24 22:30 Swallowing PFSH ED PFSH: Medical History (Updated 09/22/24 @ 02:00 by Joe Shi MD) PCOS (polycystic ovarian syndrome) Mixed stress and urge urinary incontinence Follow-up at [facility], also chronic cystitis. Allergic rhinitis due to allergen CKD (chronic kidney disease), stage II Tinea corporis Gout Osteoarthritis involving multiple joints on both sides of body Depression Hyperlipidemia Pre-diabetes Asthma History of diabetes mellitus Morbid obesity with BMI of 40.0-44.9, adult Strain of right shoulder GERD (gastroesophageal reflux disease) Surgical History History of dilation and curettage History of hernia repair umbilical Right knee meniscal tear History of cholecystectomy History of tubal ligation H/O: Family History Mother CAD (coronary artery disease) Heart attack Grandmother CAD (coronary artery disease) Maternal grandmother Other Cancer Dementia Diabetes Hypertension Stroke Social History Smoking and tobacco/nicotine status: never used tobacco/nicotine Alcohol intake: never Substance/Drug Use: never Adopted: No Caregiver/support person: No Lives independently: Yes Current occupational status: unemployed Current gender identity: Female Physical Exam Const: COMMON NORMALS: no acute distress, patient oriented x3 and alert HENMT: COMMON NORMALS: normocephalic and atraumatic HEAD & SCALP: normocephalic and atraumatic Eye: COMMON NORMALS: Equal, round and reactive pupils present, EOMs intact bilaterally and no scleral icterus PUPIL: Yes Equal, round and reactive pupils present Resp: COMMON NORMALS: normal respiratory effort and No retractions Cardio: COMMON NORMALS: regular rate, regular rhythm and No murmurs present (Cardio) RATE: regular rate RHYTHM: regular rhythm GI: COMMON NORMALS: Normal to inspection, nondistended, normoactive bowel sounds present, Soft to palpation and non-tender PALPATION: Yes Soft to palpation Extremity: NARRATIVE EXTREMITY EXAM: Mild pedal edema of the left foot. Moderate pedal edema of the right foot with overlying redness and warmth on the dorsal aspect of the foot. No bony tenderness or obvious deformity with exception to her bilateral valgus hallux deformities which are chronic and unchanged. Neuro: COMMON NORMALS: patient oriented x3 SENSORIUM/ORIENTATION: Yes alert Skin: OTHER: Cellulitic warmth and erythema on the dorsum of the right foot. No obvious abscess or break in the skin. Toes are spared. Course Vital Signs: Vital signs: Vital Signs Temperature 98.1 F 09/21/24 22:23 Pulse Rate 73 09/22/24 02:36 Respiratory Rate 18 09/21/24 22:23 Blood Pressure 127/84 09/22/24 02:36 Pulse Oximetry 97 09/22/24 02:36 Oxygen Delivery Me thod Room Air 09/21/24 22:23 MDM - Extremity (Nontraumatic) Medical Decision Making In summary, patient relates that she has been battling various months of edema in her bilateral feet for the last several months and that recently the right foot became more edematous than the left. She thought that maybe this was due to stubbing her toe 4 days ago, however her toes do not appear involved. X-rays of the bilateral feet show no evidence of fracture or dislocation. I favor the diagnosis of pedal edema. She notes that she has had increased shortness of breath with exertion lately and she was worked up for CHF. She states her father had congestive heart failure. Fortunately, EKG, chest x-ray, labs including BNP and troponin are all within normal limits. I will give her a course of antibiotics and she will keep her feet elevated and follow-up with podiatry. Lab Data 09/22/24 00:57 09/22/24 00:57 Radiology Impressions Foot X-Ray 09/21/24 22:43 IMPRESSION: 1. Negative for fracture or dislocation, consider further evaluation with a CT scan if concern for fracture remains. 2. Mild 1st metatarsophalangeal joint osteoarthritis. 3. Distal Achilles tendon degenerative calcification. 4. Small calcified heel spur. 5. Soft tissue swelling about the forefoot, nonspecific. Chest X-Ray 09/22/24 00:45 IMPRESSION: No acute findings. Laboratory Results WBC 10.31 10^3/uL (3.29-11.43) 09/22/24 00:57 RBC 4.41 10^6/uL (3.85-5.65) 09/22/24 00:57 Hgb 13.10 g/dL (11.27-16.99) 09/22/24 00:57 Hct 40.7 % (36-47) 09/22/24 00:57 MCV 92.3 fl (85-98) 09/22/24 00:57 MCH 29.7 pg (27-33) 09/22/24 00:57 MCHC 32.2 g/dL (30-55) 09/22/24 00:57 RDW 13.2 % (12.1-15.1) 09/22/24 00:57 Plt Count 280 10^3/cmm (157-399) 09/22/24 00:57 MPV 11.3 fL (7.4-10.4) H 09/22/24 00:57 Neut % (Auto) 62.7 % 09/22/24 00:57 Lymph % (Auto) 26.5 % 09/22/24 00:57 Hawkins % (Auto) 8.1 % 09/22/24 00:57 Eos % (Auto) 1.7 % 09/22/24 00:57 Baso % (Auto) 0.6 % 09/22/24 00:57 Neut # (Auto) 6.47 10^3/uL (1.8-7.7) 09/22/24 00:57 Lymph # (Auto) 2.7 10^3/uL (0.8-4.8) 09/22/24 00:57 Hawkins # (Auto) 0.8 10^3/uL (0.2-0.9) 09/22/24 00:57 Eos # (Auto) 0.2 10^3/uL (0.0-0.8) 09/22/24 00:57 Baso # (Auto) 0.1 10^3/uL (0.0-0.1) 09/22/24 00:57 Nucleated RBC % (auto) 0 % 09/22/24 00:57 Nucleated RBCs # 0.0 /100WBC 09/22/24 00:57 Sodium 139 mmol/L (136-145) 09/22/24 00:57 Potassium 4.1 mmol/L (3.5-5.1) 09/22/24 00:57 Chloride 100 mmol/L (98-107) 09/22/24 00:57 Carbon Dioxide 25 mmol/L (22-29) 09/22/24 00:57 Anion Gap 18.1 (5-19) 09/22/24 00:57 BUN 10 mg/dL (6-20) 09/22/24 00:57 Creatinine 1.0 mg/dL (0.5-0.9) H 09/22/24 00:57 GFR Calculation 58.9 mL/min (90-130) L 09/22/24 00:57 Glucose 97 mg/dL (65-115) 09/22/24 00:57 Calculated Osmolality 287 mOsm/kg (285-295) 09/22/24 00:57 Calcium 9.7 mg/dL (8.5-10.5) 09/22/24 00:57 Total Bilirubin 0.6 mg/dL (0.15-1.2) 09/22/24 00:57 AST 29 U/L (0-32) 09/22/24 00:57 ALT 31 U/L (0-33) 09/22/24 00:57 Alkaline Phosphatase 132 U/L (35-105) H 09/22/24 00:57 Troponin T Baseline 7 ng/L (0-10) 09/22/24 00:57 NT-Pro-B Natriuret Pep 40 pg/mL (0-125) 09/22/24 00:57 Total Protein 6.8 g/dL (6.6-8.7) 09/22/24 00:57 Albumin 4.1 g/dL (3.5-5.2) 09/22/24 00:57 Globulin 2.7 g/dL (1.3-4.6) 09/22/24 00:57 All radiology interpretation(s) finalized by discharge Discharge Plan Discharge Patient Disposition: Home Clinical Impression: Pedal edema, Cellulitis of foot, right Condition: Stable Prescriptions: New cephalexin 500 mg capsule 500 mg PO Q8H 7 Days Qty: 21 0RF No Action omeprazole 40 mg capsule,delayed release(DR/EC) 40 mg PO DAILY Qty: 30 1RF silver sulfadiazine [Silvadene] 1 % cream 1 applic topical BID Qty: 25 0RF Rx Instructions: apply a 1.5 mm thickness diclofenac sodium [Solaraze] 3 % gel 1 applic topical BID PRN (Reason: pain) Qty: 100 0RF polyethylene glycol 3350 [Miralax] 17 gram/dose powder 4 g PO DAILY Qty: 476 0RF Rx Instructions: in 8 oz of water bupropion HCl [Wellbutrin XL] 150 mg tablet extended release 24 hr 150 mg PO QAM Qty: 30 1RF cholecalciferol (vitamin D3) 1,250 mcg (50,000 unit) capsule 50,000 unit PO .weekly Qty: 12 0RF Discharge Orders: Discharge ED (Routine); Ordered 09/22/24 Ordered By: Joe Shi Referrals: Vero Villar DO [Primary Care Provider, [facility]] Discharge Diet: Usual diet Discharge Activity: Increase activity as tolerated Patient Instructions: Cellulitis (ED), Patient Portal & Silvia Instructions Activity Restrictions/Additional Instructions: Your blood tests and EKG and chest x-ray are reassuring with no evidence of heart failure or kidney failure or fluid accumulating on the lungs at this time. Please take the prescribed antibiotics and keep your feet elevated and keep a low salt diet and be somewhat judicious with fluid intake. Print Language: Wallisian Coding Level of Care Code ED Dice Table Operator for Deandre Shane
== END 2024-09-22 02:20 | disposition home or self-care (01) ==
PROVIDERS: Emergency Provider Student in an Organized Health Care Education/Training Program; PCP Family Medicine
DX: R60.9 Edema, unspecified (principal); L03.115 Cellulitis of right lower limb; E78.5 Hyperlipidemia, unspecified; N18.2 Chronic kidney disease, stage 2 (mild)
CPT/HCPCS: 71045; 73630; 80053; 83880; 84484; 85025; 93005; 96374; 99285; J1885; J9999

== ENCOUNTER 2024-09-26 17:21 | Emergency (ER) | payer MEDICAID, SELFPAY ==
[2024-09-26 17:25] VITALS: BP 139/87; PULSE 91; RESP 16; TEMP 36.7; O2SAT 100; BMI 38.9
--- OUTSIDE RECORDS SUMMARY | 2024-09-26 17:27 | XMS_ITS | Patient Health Record ---
Author Organization [email or web address] Address [address] [place] [address] Care Team Providers Care Target Protection Specialist Name Role Phone Jr Alfaro MD Primary Care Provider Unavailab Paulo Rodriguez Unavailable [phone] Diego Fisher Unavailable Unavailable Reason For Referral No Information Medications Medication SIG (Take, Route, Frequency, Duration) Notes Start Date End Date Status [facility]nin *[facility]* Active Loratadine *Pick strength-f orm from [facility] for eRX* Active Allopurinol *Pick strength-f orm from [facility] for eRX* Active Nystatin *[facility]* Active Naproxen *Pick strength-f orm [...] Problem Status W/U Status Risk Notes Problem 356327077 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) Active confirmed Problem 327478352 Urinary incontinence, mixed (N39.46) Active confirmed Problem 95640773 Chronic cystitis (N30.20) Active confirmed Problem 651824943 Urinary incontinence, unspecified type (R32) Active confirmed Encounters Encounter Location Date Provider Diagnosis [facility] [address] [place] [address] 06/24/2024 Paulo Shraddhaaudrey Plan Of Treatment No Information Insurance Providers Payer Name Payer Address Payer Phone Subscriber Number Group Number Insured Name Patient Relationship to Insured Coverage Start Date Coverage End Date [facility] Health Plan [address] [place], [place] [id number] Aisha Cooper Self - patient is the insured [place] Medicaid [address] [place], [place] [id number] Aisha Cooper Self - patient is the insured Medical (General) History Surgical History Surgery Date(Month/Year) hernia repairs X2 D&C X5 exploratory laproscopic surgery right knee surgery cholecystectomy
--- OUTSIDE RECORDS SUMMARY | 2024-09-26 17:27 | XMS_ITS | Clinical Summary ---
Author Organization [facility] Address [address] 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
--- OUTSIDE RECORDS SUMMARY | 2024-09-26 17:27 | XMS_ITS | Patient Health Record ---
Author Organization [facility] Address [address] [place] [address] Care Team Providers Care It Consultant Name Role Phone Jr Alfaro MD Primary Care Provider Unavailab Paulo Rodriguez Unavailable [phone] Diego Fisher Unavailable Unavailable Allergies Allergen (clinical [...] 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 (081418276) 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) Active confirmed Problem Chronic cystitis (49968197) Chronic cystitis (N30.20) Active confirmed Problem Urinary incontinence, mixed (N39.46) Active confirmed Problem Urinary incontinence (416384263) Urinary incontinence, unspecified type (R32) Active confirmed Plan Of Treatment No Information Insurance Providers Payer Name Payer Address Payer Phone Subscriber Number Group Number Insured Name Patient Relationship to Insured Coverage Start Date Coverage End Date [facility] Medicaid Replacement [address] [place] [phone] [id number] Aisha Cooper Self - patient is the insured [place] Medicaid [address] [place] [address] [id number] Aisha Cooper Self - patient is the insured Medical (General) History Medical History History ICD Code recurrent UTI plantar facsitis tinea corporis angina gout diabetes mellitus bronchitis Surgical History Surgery Date(Month/Year) cholecystectomy right knee surgery exploratory laproscopic surgery D&C X5 hernia repairs X2
--- NOTE | 2024-09-26 17:58 | CTR_ITS ---
PROCEDURE INFORMATION: Exam: CT Right Lower Extremity Without Contrast, Foot Exam date and time: 09/26/2024 6:06 PM Age: 48 years old Clinical indication: Edema; No, it is generalized; Right; Pain with swelling and redness to RT foot; Additional info: Ongoing pain and edema with negative xray TECHNIQUE: Imaging protocol: CT of the right lower extremity without contrast was performed. Exam focused on the foot. Radiation optimization: All CT scans at this facility use at least one of these dose optimization techniques: automated exposure control; mA and/or kV adjustment per patient size (includes targeted exams where dose is matched to clinical indication); or iterative reconstruction. COMPARISON: CR (LOW EXM, ) 09/21/2024 11:04 PM RADIATION DOSE METRICS: Total DLP (mGy-cm): 278.58 FINDINGS: Bones/joints: No acute fracture, dislocation, or periosteal reaction. Enthesophytes are present at the plantar fascia and calcaneus. Degenerative changes are noted at the talar dome and throughout the Lisfranc joint. Soft tissues: Diffuse subcutaneous edema and skin thickening, most pronounced along the dorsal forefoot. No organized fluid collections identified. CT/CT foot RT wo con* [id number] IMPRESSION: 1. No definite evidence of osteomyelitis or organized collections. 2. Diffuse soft tissue edema and skin thickening of the dorsal forefoot, possibly related to inflammation or infection; attention on follow-up. 3. Degenerative changes at the talar dome and Lisfranc joint with plantar and calcaneal enthesophytes.
--- NOTE | 2024-09-26 18:03 | W.ED.EXTPRO ---
HPI - Extremity Problem General: Chief complaint: Extremity Problem,Nontraumatic Stated complaint: R foot pain, swelling into leg, bruising Time Seen by Provider: 09/26/24 17:49 History of Present Illness: Patient is 48-year-old female presents to ED with initially having pain to her right foot without injury on 09/19 with mild swelling and redness. She was seen in the emergency room, and sent to podiatry for follow-up, and placed on cephalexin for 7 days. Patient followed up on 09/22 with podiatry and was placed in a boot. Podiatry was concerned there was a fracture. Patient presents to the ED with worsening redness, pain, edema. Associated symptoms: Deny chest pain or fever(s) Related Data Previous Rx's ?Medication ?Instructions ?Recorded omeprazole 40 mg capsule,delayed 40 mg PO DAILY #30 caps 07/01/24 release cholecalciferol (vitamin D3) 1,250 50,000 unit PO .weekly #12 caps 07/02/24 mcg (50,000 unit) capsule bupropion HCl 150 mg 24 hr tablet, 150 mg PO QAM #30 tabs 08/23/24 extended release (Wellbutrin XL) polyethylene glycol 3350 17 4 g PO DAILY #476 grams 08/23/24 gram/dose oral powder (Miralax) diclofenac sodium 3 % topical gel 1 applic topical BID PRN pain #100 09/19/24 (Solaraze) grams silver sulfadiazine 1 % topical 1 applic topical BID #25 grams 09/19/24 cream (Silvadene) cephalexin 500 mg capsule 500 mg PO Q8H 7 days #21 caps 09/22/24 Cam boot #1 ea 09/23/24 doxycycline hyclate 100 mg capsule 100 mg PO BID 14 days #28 caps 09/26/24 methocarbamol 500 mg tablet 500 mg PO Q8H PRN muscle spasm #30 09/26/24 tabs Allergies Allergy/AdvReac Type Severity Reaction Status Date / Time latex Allergy Intermediate ALGY-Rash Verified 09/23/24 13:23 lisinopril Allergy Mild ALGY-Difficulty Verified 09/23/24 13:23 Swallowing Review of Systems Const: Denies: fever(s) or chills Card: Denies: chest pain or palpitations Resp: Denies: dyspnea or non-productive cough GI: Denies: abdominal pain, nausea or vomiting : Denies: flank pain or difficulty voiding Musc: Reports: extremity swelling and joint pain Neuro: Denies: headache(s) or numbness in extremities PFSH ED PFSH: Medical History (Updated 09/26/24 @ 20:18 by ROGER Yarbrough) PCOS (polycystic ovarian syndrome) Mixed stress and urge urinary incontinence Follow-up at [facility] urology clinic, also chronic cystitis. Allergic rhinitis due to allergen CKD (chronic kidney disease), stage II Tinea corporis Gout Osteoarthritis involving multiple joints on both sides of body Depression Hyperlipidemia Pre-diabetes Asthma History of diabetes mellitus Morbid obesity with BMI of 40.0-44.9, adult Strain of right shoulder GERD (gastroesophageal reflux disease) Surgical History History of dilation and curettage History of hernia repair umbilical Right knee meniscal tear History of cholecystectomy History of tubal ligation H/O: Family History Mother CAD (coronary artery disease) Heart attack Grandmother CAD (coronary artery disease) Maternal grandmother Other Cancer Dementia Diabetes Hypertension Stroke Social History Smoking and tobacco/nicotine status: former use of tobacco/nicotine Alcohol intake: never Substance/Drug Use: never Adopted: No Caregiver/support person: No Lives independently: Yes Current occupational status: unemployed Current gender identity: Female Physical Exam Const: COMMON NORMALS: no acute distress, average body habitus and patient oriented x3 HENMT: COMMON NORMALS: normocephalic and atraumatic HEAD & SCALP: normocephalic and atraumatic Lymph: LYMPHATIC: no lymphadenopathy noted Chest: COMMONS NORMALS: normal inspection of the chest and normal palpation of entire chest wall Resp: COMMON NORMALS: normal respiratory effort, No retractions and No use of accessory muscles Cardio: COMMON NORMALS: regular rate and regular rhythm RATE: regular rate RHYTHM: regular rhythm GI: COMMON NORMALS: Normal to inspection, nondistended, normoactive bowel sounds present, Soft to palpation and non-tender PALPATION: Yes Soft to palpation : COMMON NORMALS: Yes no CVA tenderness BLADDER/KIDNEY EXAM: Yes no CVA tenderness Back/Pelvis: COMMON NORMALS: no CVA tenderness Extremity: RIGHT LOWER EXTREMITY: Yes foot & digits Right foot and digits: Yes inspection (redness and edema to foot) and Yes ROM (decreased due to pain) Neuro: COMMON NORMALS: patient oriented x3 Psych: COMMON NORMALS: mental status grossly normal and Normal thought process present THOUGHT PROCESS: Normal thought process present Skin: GENERAL SKIN EXAM: erythema Course Vital Signs: Vital signs: Vital Signs Temperature 98.6 F 09/26/24 22:49 Pulse Rate 79 09/26/24 22:49 Respiratory Rate 20 H 09/26/24 22:49 Blood Pressure 130/87 09/26/24 22:49 Pulse Oximetry 100 09/26/24 22:49 Oxygen Delivery Me thod Room Air 09/26/24 20:00 MDM - Extremity (Nontraumatic) Medical Decision Making Patient complained of nausea, and vomiting just prior to leaving the hospital. She had emesis x 1. Improved after Zofran. Discussed CT of the foot with patient, no fracture was noted. Patient will follow-up with podiatry. I did not have her continue wearing the boot. She will continue on appropriate antibiotic coverage for MRSA. Medical Records I reviewed the patient's medical records. Lab Data I reviewed the patient's lab results. 09/26/24 18:22 09/26/24 18:[address] 09/26/24 17:58 IMPRESSION: 1. No definite evidence of osteomyelitis or organized collections. 2. Diffuse soft tissue edema and skin thickening of the dorsal forefoot, possibly related to inflammation or infection; attention on follow-up. 3. Degenerative changes at the talar dome and Lisfranc joint with plantar and calcaneal enthesophytes. Laboratory Results WBC 10.06 10^3/uL (3.29-11.43) 09/26/24 18: RBC 4.18 10^6/uL (3.85-5.65) 09/26/24 18:22 Hgb 12.40 g/dL (11.27-16.99) 09/26/24 18:22 Hct 38.6 % (36-47) 09/26/24 18:22 MCV 92.3 fl (85-98) 09/26/24 18: MCH 29.7 pg (27-33) 09/26/24 18:22 MCHC 32.1 g/dL (30-55) 09/26/24 18:22 RDW 13.1 % (12.1-15.1) 09/26/24 18:22 Plt Count 311 10^3/cmm (157-399) 09/26/24 18:22 MPV 11.0 fL (7.4-10.4) H 09/26/24 18:22 Neut % (Auto) 71.9 % 09/26/24 18:22 Lymph % (Auto) 17.8 % 09/26/24 18:22 Sublette % (Auto) 7.7 % 09/26/24 18:22 Eos % (Auto) 1.5 % 09/26/24 18:22 Baso % (Auto) 0.5 % 09/26/24 18:22 Neut # (Auto) 7.24 10^3/uL (1.8-7.7) 09/26/24 18:22 Lymph # (Auto) 1.8 10^3/uL (0.8-4.8) 09/26/24 18:22 Sublette # (Auto) 0.8 10^3/uL (0.2-0.9) 09/26/24 18:22 Eos # (Auto) 0.2 10^3/uL (0.0-0.8) 09/26/24 18:22 Baso # (Auto) 0.1 10^3/uL (0.0-0.1) 09/26/24 18:22 Nucleated RBC % (auto) 0 % 09/26/24 18: Nucleated RBCs # 0.0 /100WBC 09/26/24 18:22 Sodium 139 mmol/L (136-145) 09/26/24 18:22 Potassium 4.1 mmol/L (3.5-5.1) 09/26/24 18:22 Chloride 100 mmol/L (98-107) 09/26/24 18:22 Carbon Dioxide 25 mmol/L (22-29) 09/26/24 18:22 Anion Gap 18.1 (5-19) 09/26/24 18:22 BUN 9 mg/dL (6-20) 09/26/24 18:22 Creatinine 1.0 mg/dL (0.5-0.9) H 09/26/24 18:22 GFR Calculation 58.9 mL/min (90-130) L 09/26/24 18:22 Glucose 96 mg/dL (65-115) 09/26/24 18:22 Calculated Osmolality 287 mOsm/kg (285-295) 09/26/24 18:22 Calcium 9.4 mg/dL (8.5-10.5) 09/26/24 18:22 Total Bilirubin 0.8 mg/dL (0.15-1.2) 09/26/24 18:22 AST 63 U/L (0-32) H 09/26/24 18:22 ALT 66 U/L (0-33) H 09/26/24 18:22 Alkaline Phosphatase 177 U/L (35-105) H 09/26/24 18:22 C-Reactive Protein 108.9 mg/L (0.0-4.9) H 09/26/24 18:22 Total Protein 7.2 g/dL (6.6-8.7) 09/26/24 18:22 Albumin 3.6 g/dL (3.5-5.2) 09/26/24 18:22 Globulin 3.6 g/dL (1.3-4.6) 09/26/24 18:22 XR interpretation done by ED provider, pending radiology final review Discharge Plan Discharge Patient Disposition: Home Clinical Impression: Cellulitis of foot, right Condition: Stable Prescriptions: New doxycycline hyclate 100 mg capsule 100 mg PO BID 14 Days Qty: 28 0RF methocarbamol 500 mg tablet 500 mg PO Q8H PRN (Reason: muscle spasm) Qty: 30 0RF No Action omeprazole 40 mg capsule,delayed release(DR/EC) 40 mg PO DAILY Qty: 30 1RF silver sulfadiazine [Silvadene] 1 % cream 1 applic topical BID Qty: 25 0RF Rx Instructions: apply a 1.5 mm thickness diclofenac sodium [Solaraze] 3 % gel 1 applic topical BID PRN (Reason: pain) Qty: 100 0RF (DME) Cam boot See Rx Instructions .Route .MEDSUPPLY Qty: 1 0RF Rx Instructions: As directed by Length of need is 6 weeks polyethylene glycol 3350 [Miralax] 17 gram/dose powder 4 g PO DAILY Qty: 476 0RF Rx Instructions: in 8 oz of water bupropion HCl [Wellbutrin XL] 150 mg tablet extended release 24 hr 150 mg PO QAM Qty: 30 1RF cholecalciferol (vitamin D3) 1,250 mcg (50,000 unit) capsule 50,000 unit PO .weekly Qty: 12 0RF cephalexin 500 mg capsule 500 mg PO Q8H 7 Days Qty: 21 0RF Discharge Orders: Discharge ED (Routine); Ordered 09/26/24 Ordered By: Lucy Chavez Referrals: Vero Villar DO [Primary Care Provider, [facility]] Discharge Diet: Usual diet Discharge Activity: Resume usual activity Patient Instructions: Cellulitis (ED), Patient Portal & Silvia Instructions Activity Restrictions/Additional Instructions: Return to ED for fever greater than 100.4, worsening redness, or edema. Take antibiotics as prescribed. Take a probiotic, or utilize active culture yogurt to avoid infectious diarrhea Follow back up with podiatry for which you are established. Call tomorrow for an appointment. Compression to this right lower extremity as discussed. You may elevate and ice as well for comfort Print Language: Khmer Coding Level of Care Code ED Manager Body for Deandre Shane
[2024-09-26] MEDS: HYDROcodone-acetaminophen 5-325 mg Tablet 1 TAB PO (18:18)
[2024-09-26 18:19] VITALS: BP 152/77; PULSE 86; O2SAT 96
[2024-09-26 18:41] LABS: Hematocrit 38.6 % (36-47); Hemoglobin 12.40 g/dL (11.27-16.99); Mean Corpuscular HGB Conc 32.1 g/dL (30-55); Mean Corpuscular Hemoglobin 29.7 pg (27-33); Mean Corpuscular Volume 92.3 fl (85-98); Nucleated Red Blood Cells % 0 %; Platelet Count 311 10^3/cmm (157-399); Red Blood Count 4.18 10^6/uL (3.85-5.65); White Blood Count 10.06 10^3/uL (3.29-11.43)
[2024-09-26 18:53] LABS: Alanine Aminotransferase 66 U/L (0-33); Albumin Level 3.6 g/dL (3.5-5.2); Alkaline Phosphatase 177 U/L (35-105); Anion Gap 18.1 (5-19); Aspartate Amino Transferase 63 U/L (0-32); Blood Urea Nitrogen 9 mg/dL (6-20); Calcium 9.4 mg/dL (8.5-10.5); Carbon Dioxide 25 mmol/L (22-29); Chloride 100 mmol/L (98-107); Creatinine Clr Calc Pharmacy 76.6581; Globulin 3.6 g/dL (1.3-4.6); Glucose 96 mg/dL (65-115); Osmolality Calculated 287 mOsm/kg (285-295); Potassium 4.1 mmol/L (3.5-5.1); Sodium 139 mmol/L (136-145); Total Protein 7.2 g/dL (6.6-8.7)
[2024-09-26 20:00] VITALS: BP 140/96; PULSE 88; O2SAT 93
[2024-09-26] MEDS: ondansetron 2 mg/ML SDV 2 mL 4 MG IVP (22:14)
[2024-09-26] MEDS: HYDROcodone-acetaminophen 10-325 mg Tablet 1 TAB PO ×2 (22:16)
--- NOTE | 2024-09-26 22:46 | PC.NURSE ---
While pt was on bedside commode when pt had emesis over floor. This nurse cleaned up pt and room as much as possible, ordered zofran given. Pt also given crutches. pt then began stating she felt Hot Oral temp checked and 98.6.
[2024-09-26 22:49] VITALS: BP 130/87; PULSE 79; RESP 20; TEMP 37; O2SAT 100
== END 2024-09-26 22:51 | disposition home or self-care (01) ==
PROVIDERS: Emergency Provider Physician Assistant; PCP Family Medicine
DX: L03.115 Cellulitis of right lower limb (principal)
CPT/HCPCS: 36415; 73700; 80053; 85025; 86140; 96365; 96366; 96375; 99285; E0114; J2405; J3373; J9999

== ENCOUNTER → 2024-10-05 12:15 | Outpatient (BNVA) | payer MEDICAID, SELFPAY | PROVIDERS: PCP Family Medicine; Visit Provider Podiatrist Foot & Ankle Surgery | DX: S90.31XA Contusion of right foot, initial encounter (principal); M79.604 Pain in right leg; M79.89 Other specified soft tissue disorders | CPT/HCPCS: 36415; 84550; 85651; 86003; 86008; 86140 ==

== ENCOUNTER 2024-10-08 11:44 | Outpatient (CLI) | payer MEDICAID, SELFPAY ==
--- NOTE | 2024-10-08 16:00 | MR_ITS ---
WS: [id number] MRI RIGHT FOOT WITHOUT CONTRAST. COMPARISON: 04/19/2010, CT 09/26/2024 and radiograph 09/21/2024 Multiplanar, multisequence imaging is performed without contrast. Amount of edema throughout the midfoot. Edema is most significant in the midfoot and at the first metatarsophalangeal joint. Edema and soft tissue surrounding the first metatarsal phalangeal joint. Bony erosion in the medial first metatarsal head. There is increased soft tissue surrounding the first metatarsal head. On a recent CT there are scattered amorphous calcifications. Moderate narrowing of the first metatarsophalangeal joint. There is a small amount of edema present in the far medial metatarsal phalangeal joint with joint space narrowing. There are 2 cystic masses identified in the foot. On these masses is along the plantar surface of the mid third metatarsal measuring 4 x 10 mm. The other cystic masses along the dorsal surface of the foot near the navicular cuneiform articulation. This mass measures 5 x 8 mm. These may be ganglia. Narrowing of the intertarsal spaces and involving the tarsal metatarsal joint. No definite erosions. The visualized flexor and extensor tendons appear appropriate. No tears are identified. No fracture. MR/MR foot RT wo con* [id number] IMPRESSION: 1. Soft tissue with inflammation surrounding the first metatarsal head. There is a small erosion. Amorphous calcifications noted on the CT with adjacent to t he first metatarsal head. Consider gout as a possible etiology. Inflammatory ar thritis included in the differential. 2. Moderate narrowing of the first metatarsophalangeal joint with a small amou nt of edema along the far medial articular surface which may be related to rece nt trauma. 3. Cystic collections consistent with ganglia. Ganglia along the plantar surfa ce of the third metatarsal and near the navicular cuneiform articulation. 4. Diffuse soft tissue edema. 5. No fracture. 6. Degenerative arthropathy in the midfoot. No definite Charcot deformity iden tified at this time.
== END 2024-10-08 11:45 | disposition home or self-care (01) ==
LOC: RAD 11:45
PROVIDERS: PCP Family Medicine; Visit Provider Podiatrist Foot & Ankle Surgery
DX: S90.31XA Contusion of right foot, initial encounter (principal); X58.XXXA Exposure to other specified factors, initial encounter; M77.41 Metatarsalgia, right foot; M12.871 Other specific arthropathies, not elsewhere classified, right ankle and foot; M85.671 Other cyst of bone, right ankle and foot
CPT/HCPCS: 73718

== ENCOUNTER → 2024-11-09 13:34 | Outpatient (BNVA) | payer MEDICAID, SELFPAY | PROVIDERS: PCP Family Medicine; Visit Provider Family Medicine | DX: M10.071 Idiopathic gout, right ankle and foot (principal); E55.9 Vitamin D deficiency, unspecified; R79.89 Other specified abnormal findings of blood chemistry | CPT/HCPCS: 80048; 82306; 84550 ==

== ENCOUNTER → 2024-11-12 13:09 | Outpatient (BNVA) | payer MEDICAID, SELFPAY | PROVIDERS: PCP Family Medicine | DX: R73.03 Prediabetes (principal) | CPT/HCPCS: 83036 ==

== ENCOUNTER 2024-11-30 08:40 | Day surgery (SDC) | payer MEDICAID, SELFPAY ==
[2024-11-30 08:58] VITALS: BP 128/92; PULSE 84; RESP 18; TEMP 36.2; O2SAT 98
[2024-11-30 08:59] VITALS: BMI 38.9
--- NOTE | 2024-11-30 09:46 | ANES.PREANE2 ---
Pre-Anesthetic Assessment Height/Weight: Height 1.6 m Weight 99.79 kg Temp Pulse Resp BP Pulse Ox O2 Del Method 97.1 F L 84 18 128/92 98 Room Air 11/30/24 08:58 11/30/24 08:58 11/30/24 08:58 11/30/24 08:58 11/30/24 08:58 11/30/24 08:58 Preop Diagnosis: screening Operation Date: 11/30/24 10:00 Proposed Procedures p EGD with Biopsy [id number] G0121 Z12.11(Not Applicable) - Elvis Aviles MD s Colonoscopy(Not Applicable) - Elvis Aviles MD Was Beta Blanco taken within 24 hours: N/A Was Clonidine taken within 24 hours: N/A Last intake: Intake Last Liquid Date 11/29/24 Last Liquid Time 23:30 Last Solid Date 11/28/24 Last Intake: 22:00 Social No alcohol and No tobacco Exam oriented x 3 Airway Submandibular: within normal limits Cervical ROM: within normal limits Mallampati: Class II Dentition: chipped History/ROS No significant complaints Pulmonary Asthma CV/HEM None reported Chronic Renal Insufficiency Hepatic Cirrhosis Metabolic Diabetes Mellitus Anesthetic Plan ASA status: 3 Anesthesia: Anesthesia Evaluation Risk of > 500 ml blood loss (7ml/kg in children): No Medications/Allergies Home Medications ?Medication ?Instructions ?Recorded ?Confirmed ?Last Taken ?Type cholecalciferol (vitamin D3) 1,250 50,000 unit PO .weekly #12 caps 07/02/24 11/30/24 11/29/24 Rx mcg (50,000 unit) capsule diclofenac sodium 3 % topical gel 1 applic topical BID PRN pain #100 09/19/24 11/30/24 Unknown Rx (Solaraze) grams Cam boot #1 ea 09/23/24 11/09/24 Unknown Rx methocarbamol 500 mg tablet 500 mg PO Q8H PRN muscle spasm #30 09/26/24 11/30/24 11/29/24 Rx tabs omeprazole 40 mg capsule,delayed 40 mg PO DAILY #30 caps 10/15/24 11/24/24 11/30/24 Rx release allopurinol 100 mg tablet 100 mg PO DAILY #30 tabs 11/09/24 11/24/24 11/29/24 Rx escitalopram oxalate 5 mg tablet 5 mg PO DAILY #30 tabs 11/09/24 11/24/24 11/29/24 Rx (Lexapro) prazosin 2 mg capsule 2 mg PO .q hs #30 caps 11/09/24 11/24/24 11/29/24 Rx polyethylene glycol 3350 17 4 g PO DAILY PRN Constipation 11/24/24 11/24/24 11/29/24 History gram/dose oral powder (Miralax) Allergies Allergy/AdvReac Type Severity Reaction Status Date / Time latex Allergy Intermediate ALGY-Rash Verified 11/30/24 08:51 lisinopril Allergy Mild ALGY-Difficulty Verified 11/30/24 08:51 Swallowing Alpha-Gal Allergy Unknown Unknown Verified 11/30/24 09:24 (Twjiikwhk-Apnpf-8,3-Gala Current Medications Generic Name Dose Route Start Last Admin Trade Name Freq PRN Reason Stop Dose Admin Sodium Chloride 1,000 mls @ 15 mls/hr 11/30/24 08:45 11/30/24 08:58 Sodium Chloride 0.9% IV 12/01/24 08:44 15 mls/hr .Q24H PRN Administration COLONOSCOPY FLUIDS PFSH Anesthesia Medical History History of seizure disorder PCOS (polycystic ovarian syndrome) Mixed stress and urge urinary incontinence Follow-up at [facility] urology clinic, also chronic cystitis. 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 Moderate episode of recurrent major depressive disorder Hyperlipidemia Pre-diabetes Asthma History of diabetes mellitus Morbid obesity with BMI of 40.0-44.9, adult Strain of right shoulder Gastroesophageal reflux disease, unspecified whether esophagitis present Surgical History History of dilation and curettage History of hernia repair umbilical Right knee meniscal tear History of cholecystectomy History of tubal ligation H/O: Family History Mother CAD (coronary artery disease) Heart attack Grandmother CAD (coronary artery disease) Maternal grandmother Other Cancer Dementia Diabetes Hypertension Stroke Social History (Updated 11/15/24 @ 11:46 by Nusrat Moran CNA) Smoking and tobacco/nicotine status: never used tobacco/nicotine Alcohol intake: never Substance/Drug Use: never Adopted: No Caregiver/support person: No Lives independently: Yes Current occupational status: unemployed Current gender identity: Female Female Reproductive History Date of last menstrual period: 11/15/24 Data Anesthesia Cardiac Studies: Stress Echocardiogram 09/22/19
--- NOTE | 2024-11-30 09:51 | W.PM.OPSFHP ---
Same Day Surgery H&P Indication for Procedure/HPI DATE OF PROCEDURE: November 30, 2024 CHIEF COMPLAINT/INDICATIONFOR SURGICAL PROCEDURE: screening colonoscopy, heartburn PREOP DIAGNOSIS: screening colonoscopy, heartburn PLANNED PROCEDURE: Operation Date: 11/30/24 10:00 Proposed Procedures p EGD with Biopsy [id number] G0121 Z12.11(Not Applicable) - Elvis Aviles MD s Colonoscopy(Not Applicable) - Elvis Aviles MD Medications/Allergies* Home Medications ?Medication ?Instructions ?Recorded ?Confirmed ?Type polyethylene glycol 3350 17 4 g PO DAILY PRN Constipation 11/24/24 11/24/24 History gram/dose oral powder (Miralax) Allergies/Adverse Reactions Allergy/AdvReac Type Severity Reaction Status Date / Time latex Allergy Intermediate ALGY-Rash Verified 11/30/24 08:51 lisinopril Allergy Mild ALGY-Difficulty Verified 11/30/24 08:51 Swallowing Alpha-Gal Allergy Unknown Unknown Verified 11/30/24 09:24 (Pcehtksmq-Spnvv-8,3-Gala Current Medications: Generic Name Dose Route Start Last Admin Trade Name Freq PRN Reason Stop Dose Admin Sodium Chloride 1,000 mls @ 15 mls/hr 11/30/24 08:45 11/30/24 08:58 Sodium Chloride 0.9% IV 12/01/24 08:44 15 mls/hr .Q24H PRN Administration COLONOSCOPY FLUIDS Pertinent History/Comorbid Conditions* Medical History (Updated 11/02/24 @ 10:57 by Veor Villar DO) History of seizure disorder PCOS (polycystic ovarian syndrome) Mixed stress and urge urinary incontinence Follow-up at [facility] urology clinic, also chronic cystitis. 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 Moderate episode of recurrent major depressive disorder Hyperlipidemia Pre-diabetes Asthma History of diabetes mellitus Morbid obesity with BMI of 40.0-44.9, adult Strain of right shoulder Gastroesophageal reflux disease, unspecified whether esophagitis present Surgical History (Updated 07/21/24 @ 19:42 by Hernandez Barragan MD) History of dilation and curettage History of hernia repair umbilical Right knee meniscal tear History of cholecystectomy History of tubal ligation H/O: Family History (Updated 05/06/19 @ 15:38 by Ioana Mancuso MD) Diabetes CAD (coronary artery disease) Mother Heart attack Grandmother Maternal grandmother Dementia Cancer Hypertension Stroke Social History Smoking and tobacco/nicotine status: never used tobacco/nicotine Alcohol intake: never Substance/Drug Use: never Adopted: No Caregiver/support person: No Lives independently: Yes Current occupational status: unemployed Current gender identity: Female Pertinent Exam Findings alert, oriented x 3, clear to auscultation bilaterally, regular rate & rhythm and procedure specific exam findings abdomen soft, nt, nd Recommendations Risks and benefits of procedure reviewed and Patient/family agree to proceed Surgery/Procedure today Coding Level of Care Code Acute Code for Chg Fwd
[2024-11-30 10:27] VITALS: BP 92/70; PULSE 80; RESP 18; TEMP 36.2; O2SAT 94
[2024-11-30 10:42] VITALS: BP 128/67; PULSE 80; RESP 18; O2SAT 97
--- NOTE | 2024-11-30 11:05 | ANE.PACU2 ---
Inpatient post-anesthesia follow up: Airway intact: Yes Vital signs: Temperature 97.2 F Pulse Rate 80 Respiratory Rate 18 Blood Pressure 128/67 Pulse Oximetry 97 Oxygen Delivery Me thod Room Air Oxygen Flow Rate Fraction of Inspir ed Oxygen Hydration adequate: Yes Nausea and vomiting: No Pain level: 1 Mental status: Baseline
== END 2024-11-30 11:07 | disposition home or self-care (01) ==
PROVIDERS: PCP Family Medicine; Visit Provider Student in an Organized Health Care Education/Training Program
PROC: 0DJ08ZZ Inspection of Upper Intestinal Tract, Via Natural or Artificial Opening Endoscopic (ICD-10-PCS; principal; 2024-11-30 10:00)
PROC: 0DJD8ZZ Inspection of Lower Intestinal Tract, Via Natural or Artificial Opening Endoscopic (ICD-10-PCS; CPT 45378; 2024-11-30 10:00)
DX: Z12.11 Encounter for screening for malignant neoplasm of colon (principal); R12 Heartburn; K57.30 Diverticulosis of large intestine without perforation or abscess without bleeding; K29.50 Unspecified chronic gastritis without bleeding; Z91.014 Allergy to mammalian meats; E28.2 Polycystic ovarian syndrome; E78.5 Hyperlipidemia, unspecified; E66.01 Morbid (severe) obesity due to excess calories; Z68.39 Body mass index [BMI] 39.0-39.9, adult; K21.9 Gastro-esophageal reflux disease without esophagitis; J45.909 Unspecified asthma, uncomplicated; E11.22 Type 2 diabetes mellitus with diabetic chronic kidney disease; N18.2 Chronic kidney disease, stage 2 (mild); K74.60 Unspecified cirrhosis of liver
CPT/HCPCS: 43239; 45378; 88305; 88342; J7030

== ENCOUNTER 2025-01-27 18:50 | Emergency (ER) | payer MEDICAID, SELFPAY ==
[2025-01-27] VITALS (10 sets, daily range): BP systolic 130–155; BP diastolic 82–104; PULSE 64–75; RESP 14–18; TEMP 36.5; O2SAT 91–97; BMI 38.9
--- NOTE | 2025-01-27 18:51 | XRR_ITS ---
PROCEDURE INFORMATION: Exam: XR Chest Exam date and time: 01/27/2025 7:01 PM Age: 49 years old Clinical indication: Pain; Chest pressure; Additional info: Cp TECHNIQUE: Imaging protocol: Radiologic exam of the chest. Views: 1 view. COMPARISON: CR XR chest 1V portable [id number] 09/22/2024 1:07 AM FINDINGS: Lungs: Calcified granuloma right mid lung similar to prior 09/22/2024. No radiographic evidence of acute intrathoracic abnormality. Pleural spaces: Unremarkable. No pleural effusion. No pneumothorax. Heart/Mediastinum: Unremarkable. No cardiomegaly. Bones/joints: Unremarkable. XR/XR chest 1V portable [id number] IMPRESSION: Calcified granuloma right mid lung similar to prior 09/22/2024. No radiographic evidence of acute intrathoracic abnormality.
--- NOTE | 2025-01-27 18:58 | ECG_ITS ---
[employer] Test Date: 2025-01-27 Pat Name: Aisha Cooper Department: Room: Gender: Female Automatic Blocker: : 1975 Requested By: Boaz Funes Order Number: [id number] Lisa MD: Ines Sanches M.D. Measurements Intervals [place] Rate: 66 P: 21 DC: 179 QRS: 8 QRSD: 80 T: -16 QT: 393 QTc: 414 Interpretive Statements SINUS RHYTHM LOW QRS VOLTAGE IN PRECORDIAL LEADS [QRS DEFLECTION < 1.0 mV IN CHEST LEADS] ANTERIOR MYOCARDIAL INFARCTION , OF INDETERMINATE AGE [40+ ms Q WAVE AND/OR ST/T ABNORMALITY IN V3/V4] INFERIOR MYOCARDIAL INFARCTION , OF INDETERMINATE AGE [40+ ms Q WAVE AND/OR ST/T ABNORMALITY IN II/aVF] Compared to ECG 09/22/2024 01:01:02 Low QRS voltage now present Myocardial infarct finding now present Left ventricular hypertrophy no longer present ST (T wave) deviation no longer present Poor R-wave progression no longer present Electronically Signed On 01-29-2025 14:07:26 FLOTATION TANK OPERATOR by Ines Sanches M.D. [id number]
--- OUTSIDE RECORDS SUMMARY | 2025-01-27 18:59 | XMS_ITS | Patient Health Record ---
Author Organization [email or web address], [facility] Address [address] [place] [address] Care Team Providers Care Photocopy Operator Name Role Phone Jr Alfaro MD Primary Care Provider Unavailab Paulo Rodriguez Unavailable [phone] Diego Fisher Unavailable Unavailable Reason For Referral No Information Medications Medication SIG (Take, Route, Frequency, Duration) Notes Start Date End Date Status oxyBUTYnin *[facility] and Interaction Alert[facility]* Active Loratadine *Pick strength-f orm from [facility] for eRX* Active Allopurinol *Pick strength-f orm from [facility] for eRX* Active Nystatin *Pick strength-f orm from [facility] for eRX* Active Naproxen *Pick strength-f orm from [facility] for eRX* Active metroNIDAZOLE 500 MG 1 tablet Orally Twice a day; Duration: 7 day(s) Active Albuterol *Reorder from [facility] for eRx and Interaction Alerts* Active Ondansetron *Pick strength-f orm from [facility] for eRX* Active Fluticasone Furoate *Reorder fro [...] 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 (055248132) 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) Active confirmed Problem Mixed incontinence (580746196) Urinary incontinence, mixed (N39.46) Active confirmed Problem Chronic cystitis (59735773) Chronic cystitis (N30.20) Active confirmed Problem Urinary incontinence (710389631) Urinary incontinence, unspecified type (R32) Active confirmed Encounters Encounter Location Date Provider Diagnosis [facility] [address] [place] [address] 06/24/2024 Paulo Rivera Plan Of Treatment No Information Insurance Providers Payer Name Payer Address Payer Phone Subscriber Number Group Number Insured Name Patient Relationship to Insured Coverage Start Date Coverage End Date [facility] [address] [place], [place] [id number] Aisha Cooper Self - patient is the insured [place] Medicaid [address] [place], [place] [id number] Aisha Cooper Self - patient is the insured Medical (General) History Surgical History Surgery Date(Month/Year) hernia repairs X2 D&C X5 exploratory laproscopic surgery right knee surgery cholecystectomy
--- OUTSIDE RECORDS SUMMARY | 2025-01-27 18:59 | XMS_ITS | Clinical Summary ---
Author Organization [facility] Address [address] 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
[2025-01-27 19:22] LABS: Hematocrit 44.0 % (36-47); Hemoglobin 14.50 g/dL (11.27-16.99); Mean Corpuscular HGB Conc 33.0 g/dL (30-55); Mean Corpuscular Hemoglobin 30.2 pg (27-33); Mean Corpuscular Volume 91.7 fl (85-98); Nucleated Red Blood Cells % 0 %; Platelet Count 310 10^3/cmm (157-399); Red Blood Count 4.80 10^6/uL (3.85-5.65); White Blood Count 8.13 10^3/uL (3.29-11.43)
[2025-01-27 19:40] LABS: INR 0.85 (0.8-1.2); Prothrombin Time 12.30 SECONDS (12.1-14.9)
[2025-01-27 19:43] LABS: Alanine Aminotransferase 23 U/L (0-33); Albumin Level 4.3 g/dL (3.5-5.2); Alkaline Phosphatase 101 U/L (35-105); Anion Gap 17.1 (5-19); Aspartate Amino Transferase 24 U/L (0-32); Blood Urea Nitrogen 9 mg/dL (6-20); Calcium 9.7 mg/dL (8.5-10.5); Carbon Dioxide 26 mmol/L (22-29); Chloride 103 mmol/L (98-107); Creatinine Clr Calc Pharmacy 75.8158; Globulin 2.4 g/dL (1.3-4.6); Glucose 116 mg/dL (65-115); Lipase 33 U/L (13-60); Osmolality Calculated 294 mOsm/kg (285-295); Potassium 4.1 mmol/L (3.5-5.1); Sodium 142 mmol/L (136-145); Total Protein 6.7 g/dL (6.6-8.7)
--- NOTE | 2025-01-27 19:43 | CTR_ITS ---
PROCEDURE INFORMATION: Exam: CTA Abdomen and Pelvis With Contrast Exam date and time: 01/27/2025 8:31 PM Age: 49 years old Clinical indication: Condition or disease; Arterial aneurysm; Without rupture; Additional info: History aneurysm, chest pain, radiation to her neck TECHNIQUE: Imaging protocol: Computed tomographic angiography of the abdomen and pelvis with contrast. Exam focused on the arteries. 3D rendering (Not supervised by radiologist): MIP and/or 3D reconstructed images were created by the technologist. Radiation optimization: All CT scans at this facility use at least one of these dose optimization techniques: automated exposure control; mA and/or kV adjustment per patient size (includes targeted exams where dose is matched to clinical indication); or iterative reconstruction. Contrast material: OMNI 350; Contrast volume: 100 ml; Contrast route: INTRAVENOUS (IV); COMPARISON: CT kidney stone [id number] 06/23/2024 9:56 PM RADIATION DOSE METRICS: Total DLP (mGy-cm): 1449.76 FINDINGS: Aorta: No aortic aneurysm. No aortic dissection. Celiac and mesenteric arteries: No occlusion or significant stenosis. Renal arteries: No occlusion or significant stenosis. Right iliac arteries: No occlusion or significant stenosis. Left iliac arteries: No occlusion or significant stenosis. Liver: No mass. Gallbladder and biliary ducts: Cholecystectomy clips. Pancreas: Unremarkable. No mass. No ductal dilation. Spleen: Unremarkable. No splenomegaly. Adrenal glands: Unremarkable. No mass. Kidneys and ureters: Unremarkable. No solid mass. No hydronephrosis. Stomach and bowel: Sigmoid diverticulosis without definite significant acute inflammatory changes. Duodenal diverticulum. Appendix: No evidence of appendicitis. Intraperitoneal space: Unremarkable. No free air. No significant fluid collection. Lymph nodes: Unremarkable. No enlarged lymph nodes. Urinary bladder: Unremarkable. No mass. Reproductive: Unremarkable as visualized. Bones/joints: Mild degenerative changes of the lumbar vertebral bodies. Soft tissues: Unremarkable. Other findings: Please see CT chest for further information. CT/CT [facility] abdpel [id number] IMPRESSION: No evidence of aneurysm or dissection.
[2025-01-27 19:44] LABS: Troponin(5th) Baseline 7 ng/L (0-10)
--- NOTE | 2025-01-27 19:44 | ED_ITS ---
HPI - Chest Pain 2 General: Chief Complaint: Chest Pain Stated Complaint: CP Time Seen by Provider: 01/27/25 19:18 History of Present Illness: Patient is a pleasant 49-year-old female with history of younger brother with aortic aneurysm, presented to the ED with right upper chest pain, right shoulder pain, shortness of breath. This started about noon today. Patient was not exercising at time of symptoms. She does have some pain with movement of her right shoulder. She has never had cardiac workup in the past. No history of alcohol intake. Risk factors: Family history of CAD, aortic aneurysm, obesity, HLD Associated symptoms: Deny abdominal pain, dyspnea, fever(s), nausea, palpitations or vomiting Related Data Home Medications ?Medication ?Instructions ?Recorded ?Confirmed polyethylene glycol 3350 17 4 g PO DAILY PRN Constipat ion 11/24/24 12/21/24 gram/dose oral powder (Miralax) Previous Rx's ?Medication ?Instructions ?Recorded cholecalciferol (vitamin D3) 1,250 50,000 unit PO .jeff kly #12 caps 07/02/24 mcg (50,000 unit) capsule diclofenac sodium 3 % topical gel 1 applic topical BID PRN pain #100 09/19/24 (Solaraze) grams Cam boot #1 ea 09/23/24 methocarbamol 500 mg tablet 500 mg PO Q8H PRN muscle s pasm #30 09/26/24 tabs allopurinol 100 mg tablet 100 mg PO DAILY #30 tabs 05/04 pantoprazole 40 mg tablet,delayed 40 mg PO BID 30 days #60 tabs 12/13/24 release (Protonix) sucralfate 100 mg/mL oral 10 ml PO BID 30 days #840 mL 12/13/24 suspension albuterol sulfate 90 mcg/actuation 2 puff inhalation Q ID PRN 12/21/24 aerosol inhaler (Ventolin HFA) shortness of breath or wheezing #8.5 grams escitalopram oxalate 5 mg tablet 5 mg PO DAILY #30 tab s 12/21/24 (Lexapro) nystatin 100,000 unit/gram topical 1 applic topical BI D #60 grams 12/21/24 powder prazosin 1 mg capsule 1 mg PO DAILY #30 caps 12/21 Allergies Allergy/AdvReac Type Severity Reaction Status Date / Time latex Allergy Intermediate ALGY-Rash Verified 12/21/24 13:45 lisinopril Allergy Mild ALGY-Difficulty Verified 12/21/24 13:45 Swallowing Alpha-Gal Allergy Unknown Unknown Verified 12/21/24 13:45 (Nbvsrsvsc-Osyoj-7,3-Gala Review of Systems 2 General: Reports: 10 or more systems reviewed and unremarkable except in HPI and below Const: Denies: fever(s) or chills Card: Reports: chest pain; Denies: palpitations, swelling of feet/ankles, pre-syncope, dyspnea on exertion or orthopnea Resp: Denies: dyspnea or non-productive cough GI: Denies: abdominal pain, nausea or vomiting : Denies: flank pain or difficulty voiding Musc: Denies: neck pain or back pain Skin/Breast: Denies: rash or pruritus Neuro: Reports: headache(s) and dizziness; Denies: numbness in extremities, sensory changes, lack of coordination or difficulty walking Psych: Denies: anxiety or depression PFSH ED 2 PFSH: Medical History (Updated 01/27/25 @ 21:08 by ROGER Yarbrough) History of seizure disorder PCOS (polycystic ovarian syndrome) Mixed stress and urge urinary incontinence Follow-up at [facility] urology clinic, also chronic cystitis. 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 Moderate episode of recurrent major depressive disorder Hyperlipidemia Pre-diabetes Mild intermittent asthma without complication History of diabetes mellitus Morbid obesity with BMI of 40.0-44.9, adult Strain of right shoulder Gastroesophageal reflux disease, unspecified whether esophagitis present Surgical History History of dilation and curettage History of hernia repair umbilical Right knee meniscal tear History of cholecystectomy History of tubal ligation H/O: Family History Mother CAD (coronary artery disease) Heart attack Grandmother CAD (coronary artery disease) Maternal grandmother Other Cancer Dementia Diabetes Hypertension Stroke Social History Smoking and tobacco/nicotine status: never used tobacco/nicotine Alcohol intake: never Substance/Drug Use: never Adopted: No Caregiver/support person: No Lives independently: Yes Current occupational status: unemployed Current gender identity: Female Physical Exam 2 Const: COMMON NORMALS: patient oriented x3, alert and well nourished N UTRITIONAL APPEARANCE: obese HENMT: COMMON NORMALS: external ears normal and EAC's normal EXTERNAL EAR: Yes external ears normal EXTERNAL AUDITORY CANAL: EAC's normal Eye: COMMON NORMALS: EOMs intact bilaterally Neck/C-Spine: COMMON NORMALS: no lymphadenopathy Resp: COMMON NORMALS: clear to auscultation bilaterally AUSCULTATION: clear to auscultation bilaterally, no rales and no rhonchi Cardio: COMMON NORMALS: regular rate, regular rhythm, S1 normal heart sound present and S2 normal heart sound present RATE: regular rate RHYTHM: r egular rhythm HEART SOUNDS: S1 normal heart sound present, S2 normal heart sound present, no gallops, no murmurs and no rubs GI: COMMON NORMALS: Normal to inspection, nondistended, normoactive bowel sounds present and Soft to palpation AUSCULTATION: Yes normoactive bowel sounds PALPATION: Yes Soft to palpation : COMMON NORMALS: Yes no CVA tenderness BLADDER/KIDNEY EXAM: Yes no CVA tenderness Back/Pelvis: COMMON NORMALS: no CVA tenderness and thoracic and lumbar spine normal to inspection Extremity: COMMON NORMALS: normal to inspection and full ROM NARRATIVE EXTREMITY EXAM: Right shoulder with tenderness on abduction GENERAL: No clubbing, No cyanosis and No edema Neuro: COMMON NORMALS: patient oriented x3 SENSORIUM/ORIENTATION: Yes alert Skin: RASHES: rashes noted (Intertrigo under bilateral breasts - no skin breakdown. ) Course 2 Vital Signs: Vital signs: Vital Signs Temperature 97.7 F 01/27/25 18:54 Pulse Rate 69 01/27/25 21:33 Respiratory Rate 18 01/27/25 21:33 Blood Pressure 137/86 01/27/25 21:33 Pulse Oximetry 94 01/27/25 21:33 Oxygen Delivery Me thod Room Air 01/27/25 18:54 MDM - Chest Pain Medical Decision Making Patient is 49-year-old female with family history of aortic aneurysm in a younger brother, CAD. Non-smoker. Nondiabetic. Unknown lipid level. Patient's heart score is 2, and you could make the argument of heart score of 1. She is not having shortness of breath. Her symptoms have resolved. I do suspect this is musculoskeletal in nature since she had some penetration with movement of her right shoulder on exam. Discussed with patient. With risk factors of bicuspid aortic valve, recommended discussing with her primary care if she should go to cardiology for echocardiogram, and/or stress test, cardiac imaging, as per decision making with cardiac. On chest x-ray she had calcified granuloma of the right mid lung, which is of no circumstance. This is just an incidental and significant finding. Discussed with patient. All her questions answered to her satisfaction. Medical Records I reviewed the patient's medical records. Lab Data I reviewed the patient's lab results. 01/27/25 19:09 01/27/25 19:09 Radiology Impressions Chest X-Ray 01/27/25 18:51 IMPRESSION: Calcified granuloma right mid lung similar to prior 09/22/2024. No radiographic evidence of acute intrathoracic abnormality. Chest/Abdomen/Pelvis CTA 01/27/25 19:43 IMPRESSION: No evidence of aneurysm or dissection. Laboratory Results WBC 8.13 10^3/uL (3.29-11.43) 01/27/25 19:09 RBC 4.80 10^6/uL (3.85-5.65) 01/27/25 19:09 Hgb 14.50 g/dL (11.27-16.99) 01/27/25 19:09 Hct 44.0 % (36-47) 01/27/25 19:09 MCV 91.7 fl (85-98) 01/27/25 19:09 MCH 30.2 pg (27-33) 01/27/25 19:09 MCHC 33.0 g/dL (30-55) 01/27/25 19:09 RDW 13.8 % (12.1-15.1) 01/27/25 19:09 Plt Count 310 10^3/cmm (157-399) 01/27/25 19:09 MPV 11.4 fL (7.4-10.4) H 01/27/25 19:09 Neut % (Auto) 59.9 % 01/27/25 19:09 Lymph % (Auto) 28.4 % 01/27/25 19:09 [place] % (Auto) 8.2 % 01/27/25 19:09 Eos % (Auto) 2.3 % 01/27/25 19:09 Baso % (Auto) 1.0 % 01/27/25 19:09 Neut # (Auto) 4.86 10^3/uL (1.8-7.7) 01/27/25 19:09 Lymph # (Auto) 2.3 10^3/uL (0.8-4.8) 01/27/25 19:09 [place] # (Auto) 0.7 10^3/uL (0.2-0.9) 01/27/25 19:09 Eos # (Auto) 0.2 10^3/uL (0.0-0.8) 01/27/25 19:09 Baso # (Auto) 0.1 10^3/uL (0.0-0.1) 01/27/25 19:09 Nucleated RBC % (auto) 0 % 01/27/25 19:09 Nucleated RBCs # 0.0 /100WBC 01/27/25 19:09 PT 12.30 SECONDS (12.1-14.9) 01/27/25 19:09 INR 0.85 (0.8-1.2) 01/27/25 19:09 Sodium 142 mmol/L (136-145) 01/27/25 19:09 Potassium 4.1 mmol/L (3.5-5.1) 01/27/25 19:09 Chloride 103 mmol/L (98-107) 01/27/25 19:09 Carbon Dioxide 26 mmol/L (22-29) 01/27/25 19:09 Anion Gap 17.1 (5-19) 01/27/25 19:09 BUN 9 mg/dL (6-20) 01/27/25 19:09 Creatinine 1.0 mg/dL (0.5-0.9) H 01/27/25 19:09 GFR Calculation 58.7 mL/min (90-130) L 01/27/25 19:09 Glucose 116 mg/dL (65-115) H 01/27/25 19:09 Calculated Osmolality 294 mOsm/kg (285-295) 01/27/25 19:09 Calcium 9.7 mg/dL (8.5-10.5) 01/27/25 19:09 Total Bilirubin 0.8 mg/dL (0.15-1.2) 01/27/25 19:09 AST 24 U/L (0-32) 01/27/25 19:09 ALT 23 U/L (0-33) 01/27/25 19:09 Alkaline Phosphatase 101 U/L (35-105) 01/27/25 19:09 Troponin T Baseline 7 ng/L (0-10) 01/27/25 19:09 Troponin T 120 Minute 7.65 ng/L (0-10) 01/27/25 21:07 Delta Troponin T 0.65 ABS# (0-10) 01/27/25 21:07 Total Protein 6.7 g/dL (6.6-8.7) 01/27/25 19:09 Albumin 4.3 g/dL (3.5-5.2) 01/27/25 19:09 Globulin 2.4 g/dL (1.3-4.6) 01/27/25 19:09 Lipase 33 U/L (13-60) 01/27/25 19:09 All radiology interpretation(s) finalized by discharge ED provider radiology interpretation(s): Calcified granuloma Discharge Plan Discharge Patient Disposition: Home Clinical Impression: Muscle spasm, Non-cardiac chest pain Condition: Stable Prescriptions: No Action diclofenac sodium [Solaraze] 3 % gel 1 applic topical BID PRN (Reason: pain) Qty: 100 0RF (DME) Cam boot See Rx Instructions .Route .MEDSUPPLY Qty: 1 0RF Rx Instructions: As directed by Length of need is 6 weeks allopurinol 100 mg tablet 100 mg PO DAILY Qty: 30 3RF escitalopram oxalate [Lexapro] 5 mg tablet 5 mg PO DAILY Qty: 30 2RF prazosin 1 mg capsule 1 mg PO DAILY Qty: 30 2RF nystatin 100,000 unit/gram powder 1 applic topical BID Qty: 60 3RF albuterol sulfate [Ventolin HFA] 90 mcg/actuation HFA aerosol inhaler 2 puff inhalation QID PRN (Reason: shortness of breath or wheezing) Qty: 8.5 3RF sucralfate 100 mg/mL suspension 10 ml PO BID 30 Days Qty: 840 5RF pantoprazole [Protonix] 40 mg tablet,delayed release (DR/EC) 40 mg PO BID 30 Days Qty: 60 5RF cholecalciferol (vitamin D3) 1,250 mcg (50,000 unit) capsule 50,000 unit PO .weekly Qty: 12 0RF polyethylene glycol 3350 [Miralax] 17 gram/dose powder 4 g PO DAILY PRN (Reason: Constipation) Rx Instructions: in 8 oz of water methocarbamol 500 mg tablet 500 mg PO Q8H PRN (Reason: muscle spasm) Qty: 30 0RF Discharge Orders: Discharge ED (Routine); Ordered 01/27/25 Ordered By: Lucy Chavez Referrals: Vero Villar DO [Primary Care Provider, Family Practice] Patient Instructions: Noncardiac Chest Pain (ED), Patient Portal & Silvia Instructions Activity Restrictions/Additional Instructions: - Follow-up with your doctor regarding your right chest pain, and right shoulder pain. You have been ruled out from an acute cardiac standpoint. This does not mean you do not have blockage, it means there is nothing acute going on at this time. Discussed with your primary care physician if you need cardiac referral to have an official rule out for blockage being present - Return to ED if you have further chest discomfort - Lidoderm patch to your chest wall may help with the pain. You can ice this area as well. Do not forget your deep breathing. Anti-inflammatories, and Tylenol can be helpful as well. Thank you for choosing [facility] for your healthcare needs today. You have been screened and evaluated and felt safe for discharge. Health conditions do change or evolve sometimes and as such it is important that you follow up with your Primary Doctor to be re checked, 3-5 days is a general good time frame for follow up. You are always welcome to return to the ED for re assessment if your symptoms are worsening or you have new concerns Print Language: Georgian Coding Level of Care Code ED Skin Care Specialist for Chg Fwd Heart Score HEART Score Components History: Slightly Suspicous EKG: Normal Age: 45-64 yrs Risk Factors: 1 or 2 Risk Factors Troponin: Baseline Trop <16 ng/L HEART Score RESULT HEART Score: 2
[2025-01-27] MEDS: iohexol 350 mg/mL 500 mL Btl (per mL) IV (20:50)
--- NOTE | 2025-01-27 21:02 | ECG_ITS ---
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 Measurements Intervals [place] Rate: 60 P: 9 MA: 156 QRS: 39 QRSD: 85 T: -17 QT: 416 QTc: 418 Interpretive Statements SINUS RHYTHM LOW QRS VOLTAGE IN PRECORDIAL LEADS [QRS DEFLECTION < 1.0 mV IN CHEST LEADS] ANTERIOR MYOCARDIAL INFARCTION , OF INDETERMINATE AGE [40+ ms Q WAVE AND/OR ST/T ABNORMALITY IN V3/V4] INFERIOR MYOCARDIAL INFARCTION , OF INDETERMINATE AGE [40+ ms Q WAVE AND/OR ST/T ABNORMALITY IN II/aVF] Diffuse nonspecific T wave changes in the anterolateral and inferior leads Compared to ECG 01/27/2025 18:58:17 No significant changes Electronically Signed On 01-29-2025 14:24:11 POLICE MANAGER by Ines Sanches M.D. [email or web address]
[2025-01-27] MEDS: orphenadrine 30 mg/mL Inj 2 mL IV (21:30)
[2025-01-27 21:35] LABS: Troponin 5 2HR 7.65 ng/L (0-10); Troponin 5 2HR Delta 0.65 ABS# (0-10)
== END 2025-01-27 22:02 | disposition home or self-care (01) ==
PROVIDERS: Emergency Medicine; Emergency Provider Physician Assistant; PCP Family Medicine
DX: M62.838 Other muscle spasm (principal); R07.89 Other chest pain; E78.5 Hyperlipidemia, unspecified; E11.22 Type 2 diabetes mellitus with diabetic chronic kidney disease; N18.2 Chronic kidney disease, stage 2 (mild)
CPT/HCPCS: 36415; 71045; 71275; 74174; 80053; 83690; 84484; 85025; 85610; 93005; 96374; 96375; 99285; J1885; J2360

== ENCOUNTER → 2025-02-08 14:43 | Outpatient (BNVA) | payer MEDICAID, SELFPAY | PROVIDERS: PCP Family Medicine; Visit Provider Family Medicine | DX: R73.03 Prediabetes (principal) | CPT/HCPCS: 80048; 83036 ==

== ENCOUNTER 2025-02-15 17:12 | Emergency (ER) | payer MEDICAID, SELFPAY ==
[2025-02-15 17:25] VITALS: BP 148/82; PULSE 81; RESP 16; TEMP 36.6; O2SAT 97
[2025-02-15 18:07] LABS: Hematocrit 44.6 % (36-47); Hemoglobin 14.30 g/dL (11.27-16.99); Mean Corpuscular HGB Conc 32.1 g/dL (30-55); Mean Corpuscular Hemoglobin 29.5 pg (27-33); Mean Corpuscular Volume 92.0 fl (85-98); Nucleated Red Blood Cells % 0 %; Platelet Count 300 10^3/cmm (157-399); Red Blood Count 4.85 10^6/uL (3.85-5.65); White Blood Count 7.42 10^3/uL (3.29-11.43)
[2025-02-15 18:31] LABS: Alanine Aminotransferase 15 U/L (0-33); Albumin Level 4.1 g/dL (3.5-5.2); Alkaline Phosphatase 102 U/L (35-105); Aspartate Amino Transferase 16 U/L (0-32); Blood Urea Nitrogen 11 mg/dL (6-20); Calcium 9.1 mg/dL (8.5-10.5); Carbon Dioxide 22 mmol/L (22-29); Chloride 105 mmol/L (98-107); Globulin 3.2 g/dL (1.3-4.6); Glucose 109 mg/dL (65-115); Lipase 34 U/L (13-60); Osmolality Calculated 292 mOsm/kg (285-295); Sodium 141 mmol/L (136-145); Total Protein 7.3 g/dL (6.6-8.7)
[2025-02-15 18:36] LABS: Anion Gap 18.0 (5-19); Potassium 4.0 mmol/L (3.5-5.1)
--- NOTE | 2025-02-15 20:05 | ED_ITS ---
HPI - Abdominal Pain 2 General: Chief Complaint: Abdominal Pain Stated Complaint: Upper ABD Pain Diarrhea Time Seen by Provider: 02/15/25 19:42 History of Present Illness: 49-year-old female presents emergency ro om with complaint of abdominal pain localized pain left lower quadrant. Patient's noted dark stool and some streaks of bright red blood. She has had irritable bowel issues in the past and November of this year she had a colonoscopy which showed diverticuli but no other significant findings. She has had intermittent episodes of constipation and diarrhea since then no fever sweats chills no dysuria urgency or frequency Associated Symptoms: Reports nausea; Denies chills, coffee ground emesis, dysuria, fever(s), hematochezia, hematemesis, melena and vomiting Related Data Home Medications ?Medication ?Instructions ?Recorded ?Confirmed polyethylene glycol 3350 17 4 g PO DAILY PRN Constipat ion 11/24/24 02/08/25 gram/dose oral powder (Miralax) Previous Rx's ?Medication ?Instructions ?Recorded Cam boot #1 ea 09/23/24 methocarbamol 500 mg tablet 500 mg PO Q8H PRN muscle s pasm #30 09/26/24 tabs allopurinol 100 mg tablet 100 mg PO DAILY #30 tabs 05/04 pantoprazole 40 mg tablet,delayed 40 mg PO BID 30 days #60 tabs 12/13/24 release (Protonix) sucralfate 100 mg/mL oral 10 ml PO BID 30 days #840 mL 12/13/24 suspension albuterol sulfate 90 mcg/actuation 2 puff inhalation Q ID PRN 12/21/24 aerosol inhaler (Ventolin HFA) shortness of breath or wheezing #8.5 grams escitalopram oxalate 5 mg tablet 5 mg PO DAILY #30 tab s 12/21/24 (Lexapro) nystatin 100,000 unit/gram topical 1 applic topical BI D #60 grams 12/21/24 powder prazosin 1 mg capsule 1 mg PO DAILY #30 caps 12/21 diclofenac sodium 3 % topical gel 1 applic topical BID PRN pain #100 02/08/25 (Solaraze) grams amoxicillin 875 mg-potassium 1 tab PO BID #10 tabs 12/02 clavulanate 125 mg tablet hydrocodone 5 mg-acetaminophen 325 1 tab PO Q6H PRN pa in #7 tabs 02/15/25 mg tablet promethazine 25 mg tablet 25 mg PO Q6H PRN nausea and 02/15/25 vomiting #20 tabs cholecalciferol (vitamin D3) 1,250 50,000 unit PO .jeff arellano #12 caps 02/18/25 mcg (50,000 unit) capsule Allergies Allergy/AdvReac Type Severity Reaction Status Date / Time latex Allergy Intermediate ALGY-Rash Verified 02/08/25 14:08 lisinopril Allergy Mild ALGY-Difficulty Verified 02/08/25 14:08 Swallowing Alpha-Gal Allergy Unknown Unknown Verified 02/08/25 14:08 (Gadncofhi-Pvdxg-4,3-Gala Review of Systems 2 Const: Denies: fever(s) or chills Card: Denies: chest pain Resp: Denies: dyspnea GI: Reports: abdominal pain and nausea; Denies: vomiting, hematemesis, coffee ground emesis, hematochezia or melena : Denies: dysuria, urinary frequency or urinary urgency Musc: Denies: neck pain or back pain Skin/Breast: Denies: rash PFSH ED 2 PFSH: Medical History History of seizure disorder PCOS (polycystic ovarian syndrome) Mixed stress and urge urinary incontinence Follow-up at [facility] urology clinic, also chronic cystitis. 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 Moderate episode of recurrent major depressive disorder Hyperlipidemia Pre-diabetes Mild intermittent asthma without complication History of diabetes mellitus Morbid obesity with BMI of 40.0-44.9, adult Strain of right shoulder Gastroesophageal reflux disease, unspecified whether esophagitis present Surgical History History of dilation and curettage History of hernia repair umbilical Right knee meniscal tear History of cholecystectomy History of tubal ligation H/O: Family History Mother CAD (coronary artery disease) Heart attack Grandmother CAD (coronary artery disease) Maternal grandmother Other Cancer Dementia Diabetes Hypertension Stroke Social History (Reviewed 02/21/25 @ 08:49 by JONATHAN Cano Smoking and tobacco/nicotine status: never used tobacco/nicotine Alcohol intake: never Substance/Drug Use: never Adopted: No Caregiver/support person: No Lives independently: Yes Current occupational status: unemployed Current gender identity: Female Physical Exam 2 Const: GENERAL APPEARANCE: cooperative ORIENTATION/CONSCIOUSNESS: Yes awake, Yes oriented to person, Yes oriented to place and Yes oriented to time HENMT: COMMON NORMALS: normocephalic, atraumatic and hearing grossly normal bilaterally HEAD & SCALP: normocephalic and atraumatic Resp: COMMON NORMALS: normal respiratory effort, No retractions, No use of accessory muscles and clear to auscultation bilaterally AUSCULTATION: clear to auscultation bilaterally Cardio: COMMON NORMALS: regular rate, regular rhythm and No murmurs present (Cardio) RATE: regular rate RHYTHM: regular rhythm GI: COMMON NORMALS: No hepatosplenomegaly present AUSCULTATION: Yes normoactive bowel sounds PALPATION: Yes Tenderness to palpation present (GI) (Mild tenderness left lower quadrant), No Guarding due to palpation present (GI) and Yes No hepatosplenomegaly present Extremity: COMMON NORMALS: normal to inspection, capillary refill normal, no clubbing, cyanosis or edema, no calf tenderness and no pedal edema Neuro: SENSORIUM/ORIENTATION: Yes oriented to person, Yes oriented to place and Yes oriented to time Skin: COMMON NORMALS: no rashes or lesions noted GENERAL SKIN EXAM: no rashes or lesions noted Course 2 Vital Signs: Vital signs: Vital Signs Temperature 97.8 F 02/15/25 17:25 Pulse Rate 81 02/15/25 17:25 Respiratory Rate 16 02/15/25 17:25 Blood Pressure 148/82 02/15/25 17:25 Pulse Oximetry 97 02/15/25 17:25 Oxygen Delivery Me thod Room Air 02/15/25 17:25 MDM - Abdominal Pain Medical Decision Making Medical decision making Social determinants: None I reviewed the patient's medical record. I reviewed the patient's current home meds. Alternate historians: None Differential diagnosis: Diverticulitis, bowel obstruction, pancreatitis Lab Review: CBC normal lipase electrolytes and liver functions normal creatinine slightly elevated from baseline baseline is 1-1.1 on the second of this month and today she is at 1.3 Imaging: None Assessment of risk Level of risk: Low Hospitalization considerations: No indication for hospitalization Reexamination: Unchanged Assessment and plan: Based on her symptoms suspect patient does have diverticulitis we will treat with oral antibiotics. She has no acute findings on examination of her abdomen and her white count normal. She is given IV fluids discharged home with antibiotics pain meds and antiemetics. Encouraged to follow-up with her primary care doctor regarding colonoscopy. Recommend clear liquid diet for the next 1 to 2 days then advance as tolerated. Return if has further problems develop fever uncontrolled pain Lab Data 02/15/25 18:01 02/15/25 18: Labs/Radiology: Laboratory Results WBC 7.42 10^3/uL (3.29-11.43) 02/15/25 18: RBC 4.85 10^6/uL (3.85-5.65) 02/15/25 18: Hgb 14.30 g/dL (11.27-16.99) 02/15/25 18: Hct 44.6 % (36-47) 02/15/25 18: MCV 92.0 fl (85-98) 02/15/25 18: MCH 29.5 pg (27-33) 02/15/25 18: MCHC 32.1 g/dL (30-55) 02/15/25 18: RDW 13.3 % (12.1-15.1) 02/15/25 18: Plt Count 300 10^3/cmm (157-399) 02/15/25 18: MPV 10.8 fL (7.4-10.4) H 02/15/25 18: Neut % (Auto) 60.9 % 02/15/25 18: Lymph % (Auto) 30.1 % 02/15/25 18: [place] % (Auto) 6.6 % 02/15/25 18: Eos % (Auto) 1.6 % 02/15/25 18: Baso % (Auto) 0.5 % 02/15/25 18: Neut # (Auto) 4.52 10^3/uL (1.8-7.7) 02/15/25 18: Lymph # (Auto) 2.2 10^3/uL (0.8-4.8) 02/15/25 18:01 [place] # (Auto) 0.5 10^3/uL (0.2-0.9) 02/15/25 18:01 Eos # (Auto) 0.1 10^3/uL (0.0-0.8) 02/15/25 18:01 Baso # (Auto) 0.0 10^3/uL (0.0-0.1) 02/15/25 18:01 Nucleated RBC % (auto) 0 % 02/15/25 18: Nucleated RBCs # 0.0 /100WBC 02/15/25 18:01 Sodium 141 mmol/L (136-145) 02/15/25 18:01 Potassium 4.0 mmol/L (3.5-5.1) 02/15/25 18: Chloride 105 mmol/L (98-107) 02/15/25 18: Carbon Dioxide 22 mmol/L (22-29) 02/15/25 18: Anion Gap 18.0 (5-19) 02/15/25 18: BUN 11 mg/dL (6-20) 02/15/25 18:01 Creatinine 1.3 mg/dL (0.5-0.9) H 02/15/25 18:01 GFR Calculation 43.4 mL/min (90-130) L 02/15/25 18: Glucose 109 mg/dL (65-115) 02/15/25 18:01 Calculated Osmolality 292 mOsm/kg (285-295) 02/15/25 18: Calcium 9.1 mg/dL (8.5-10.5) 02/15/25 18: Total Bilirubin 0.8 mg/dL (0.15-1.2) 02/15/25 18:01 AST 16 U/L (0-32) 02/15/25 18:01 ALT 15 U/L (0-33) 02/15/25 18:01 Alkaline Phosphatase 102 U/L (35-105) 02/15/25 18:01 Total Protein 7.3 g/dL (6.6-8.7) 02/15/25 18:01 Albumin 4.1 g/dL (3.5-5.2) 02/15/25 18: Globulin 3.2 g/dL (1.3-4.6) 02/15/25 18:01 Lipase 34 U/L (13-60) 02/15/25 18:01 No radiology studies performed this visit Discharge Plan Discharge Patient Disposition: Home Clinical Impression: Diverticulitis Condition: Stable Prescriptions: New hydrocodone-acetaminophen 5-325 mg tablet 1 tab PO Q6H PRN (Reason: pain) Qty: 7 0RF promethazine 25 mg tablet 25 mg PO Q6H PRN (Reason: nausea and vomiting) Qty: 20 0RF amoxicillin-pot clavulanate 875-125 mg tablet 1 tab PO BID Qty: 10 0RF No Action (DME) Cam boot See Rx Instructions .Route .MEDSUPPLY Qty: 1 0RF Rx Instructions: As directed by Length of need is 6 weeks allopurinol 100 mg tablet 100 mg PO DAILY Qty: 30 3RF diclofenac sodium [Solaraze] 3 % gel 1 applic topical BID PRN (Reason: pain) Qty: 100 0RF escitalopram oxalate [Lexapro] 5 mg tablet 5 mg PO DAILY Qty: 30 2RF prazosin 1 mg capsule 1 mg PO DAILY Qty: 30 2RF nystatin 100,000 unit/gram powder 1 applic topical BID Qty: 60 3RF albuterol sulfate [Ventolin HFA] 90 mcg/actuation HFA aerosol inhaler 2 puff inhalation QID PRN (Reason: shortness of breath or wheezing) Qty: 8.5 3RF sucralfate 100 mg/mL suspension 10 ml PO BID 30 Days Qty: 840 5RF pantoprazole [Protonix] 40 mg tablet,delayed release (DR/EC) 40 mg PO BID 30 Days Qty: 60 5RF cholecalciferol (vitamin D3) 1,250 mcg (50,000 unit) capsule 50,000 unit PO .weekly Qty: 12 0RF polyethylene glycol 3350 [Miralax] 17 gram/dose powder 4 g PO DAILY PRN (Reason: Constipation) Rx Instructions: in 8 oz of water methocarbamol 500 mg tablet 500 mg PO Q8H PRN (Reason: muscle spasm) Qty: 30 0RF Discharge Orders: Discharge ED (Routine); Ordered 02/15/25 Ordered By: Yvan Fisher Referrals: Vero Villar DO [Primary Care Provider, Family Practice] Discharge Diet: Usual diet Discharge Activity: Increase activity as tolerated Patient Instructions: Abdominal Pain (ED), Opioid Safety, Pain Management, Patient Portal & Silvia Instructions Activity Restrictions/Additional Instructions: Thank you for choosing [facility] for your healthcare needs today. It is very important that you follow up as instructed or that you return to the Emergency Department should you have concerns or if your condition changes or worsens in any way. Emergency department visits are focused on emergent conditions, in some cases you may require further evaluation on an outpatient basis. You were seen in the emergency room for complaints of abdominal plan rectal bleeding rectal exam did not show any blood in your laboratory test did not show any significant abnormality although your creatinine was slightly elevated. You should increase your fluid intake. Based on your exam and your history as well as reviewing the recent colonoscopy suspect you have diverticulitis we will start you on antibiotics for this will also prescribe you pain and nausea medications recommend clear liquid diet for the next 2 to 3 days and advance as tolerated. (Please note that included in your discharge packet is information concerning opioid safety and pain management. This information is given to all patients were discharged from the ER regardless of their discharge diagnosis or the medicines they usually take or are prescribed.) Print Language: Spanish Coding Level of Care Code ED Charge Rn for Deandre Shane
[2025-02-15] MEDS: HYDROcodone-acetaminophen 5-325 mg Tablet 2 TAB PO (20:54)
[2025-02-15] MEDS: PROMETHAZINE HCL 6.25 MG/5 ML 25 MG PO (20:55)
== END 2025-02-15 21:02 | disposition home or self-care (01) ==
PROVIDERS: Physician Assistant; Emergency Provider Family Medicine; PCP Family Medicine
DX: K57.92 Diverticulitis of intestine, part unspecified, without perforation or abscess without bleeding (principal); E78.5 Hyperlipidemia, unspecified; E11.22 Type 2 diabetes mellitus with diabetic chronic kidney disease; N18.2 Chronic kidney disease, stage 2 (mild)
CPT/HCPCS: 36415; 80053; 83690; 85025; 99283; J9999; Q0169

== ENCOUNTER 2025-02-16 15:17 | Outpatient (CLI) | payer MEDICAID, SELFPAY ==
--- NOTE | 2025-02-16 15:30 | USR_ITS ---
PROCEDURE INFORMATION: Exam: US Retroperitoneal, Complete, Kidneys, Aorta, IVC. Exam date and time: 02/16/2025 3:37 PM Age: 49 years old Clinical indication: Condition or disease; Other: Ckd iiib TECHNIQUE: Imaging protocol: Real-time ultrasound of the retroperitoneum with image documentation. Complete exam focused on the bilateral kidneys, aorta, and inferior vena cava. COMPARISON: CT ang ches abdpel [id number] 01/27/2025 8:31 PM FINDINGS: Right kidney: No stones. No hydronephrosis. Left kidney: No stones. No hydronephrosis. Aorta: Normal. No aneurysm. Common iliac arteries: Normal. Inferior vena cava: Normal. US/US renal BI* [id number] IMPRESSION: No acute findings.
== END 2025-02-16 15:18 | disposition home or self-care (01) ==
LOC: RAD 15:18
PROVIDERS: PCP Family Medicine; Visit Provider Family Medicine
DX: N18.9 Chronic kidney disease, unspecified (principal)
CPT/HCPCS: 76770